=== PATIENT | female | born 1950 | race Caucasian/White ===

== ENCOUNTER → 2017-11-09 11:10 | Outpatient (CLI) | payer MEDICARE, OTHER, SELFPAY ==
[2017-11-09 12:12] LABS: Absolute Neutrophil Count 2.4 X10^3/uL (2.0-7.7); Basophil# 0.03 X10^3/uL; Basophil% 0.7 % (0-1); Eosinophils% 4.5 % (0-5); Hematocrit 41.4 % (37-47); Lymphocyte % 31.3 % (19-41); Mean Corp Hgb Conc 33.8 g/gl (32-36); Mean Corpuscular Hgb 32.5 pg (27.0-32.0); Mean Corpuscular Volume 96.1 fL (81-99); Mean Platelet Vol. 9.6 fl (6.2-12.0); Monocyte# 0.43 X10^3/uL; Monocyte% 9.6 % (0-10); Neutrophil # 2.41 X10^3/uL (2.7-7.7); Neutrophil % 53.9 % (47-70); Platelet Count 248 K/mm3 (150-450); RBC Distribution Width CV 12.8 % (11.6-14.6); RBC Distribution Width SD 43.6 fl (35.1-43.9); Red Blood Count 4.31 M/mm3 (4.2-5.4); White Blood Count 4.5 K/mm3 (4.4-11.0)
[2017-11-09 12:20] LABS: POSITIVE COUNT NO; POSITIVE DIFFERENTIAL NO; POSITIVE MORPHOLOGY NO
[2017-11-09 12:46] LABS: ALB/GLOB Ratio 1.1 RATIO (0.9-2.4); AST(SGOT) 20 U/L (15-37); Alanine Aminotransfer ALT/SGPT 35 U/L (13-56); Albumin, Serum 3.7 g/dL (3.2-5.0); Alkaline Phosphatase 61 U/L (45-117); Anion Gap 5 (5-15); BUN 14 mg/dL (7-18); BUN/Creat Ratio 20.4 RATIO (10-20); Calcium,Total 8.8 mg/dL (8.5-10.1); Chloride 106 mmol/L (98-107); Creatinine, Serum 0.69 mg/dL (0.55-1.02); EST Glomerular Filtration Rate 90 mL/min (>60); Est Glom Filt Rate - Afr Amer 109 mL/min (>60); Globulin 3.4 g/dL (2.2-4.2); Glucose 84 mg/dL (74-106); Potassium 4.2 mmol/L (3.5-5.1); Protein, Total 7.1 g/dL (6.4-8.2); Sodium Level 141 mmol/L (136-145)
== END ==
PROVIDERS: Family Provider Internal Medicine; PCP Internal Medicine; Visit Provider Internal Medicine Rheumatology
DX: M05.79 Rheumatoid arthritis with rheumatoid factor of multiple sites without organ or systems involvement (principal); Z79.899 Other long term (current) drug therapy
CPT/HCPCS: 36415; 80053; 85025

== ENCOUNTER → 2018-01-12 11:35 | Outpatient (CLI) | payer MEDICARE, OTHER, SELFPAY ==
[2018-01-14 09:34] LABS: HPV Reflexed? NOT INDICATED
== END ==
PROVIDERS: Family Provider Internal Medicine; PCP Internal Medicine; Visit Provider Obstetrics & Gynecology
DX: Z12.4 Encounter for screening for malignant neoplasm of cervix (principal); Z12.72 Encounter for screening for malignant neoplasm of vagina
CPT/HCPCS: 88175; G0145

== ENCOUNTER → 2018-01-25 11:16 | Outpatient (CLI) | payer MEDICARE, OTHER, SELFPAY ==
--- NOTE | 2018-01-25 11:16 | DT_ITS ---
This patient was seen during an EMR downtime January 18, 2018 - January 25, 2018. This patient may have a combination of paper and electronic documentation or all paper documentation. All documentation is viewable within the e-chart portion of [facility] for each patient visit.
[2018-01-25 14:03] LABS: Absolute Lymphocyte Count 1.32 X10^3/ul (0.83-4.51); Absolute Neutrophil Count 2.6 X10^3/uL (2.0-7.7); Basophil# 0.01 X10^3/uL; Basophil% 0.2 % (0-1); Eosinophil# 0.14 X10^3/uL; Eosinophils% 3.2 % (0-5); Hematocrit 39.8 % (37-47); Hemoglobin 13.2 g/dl (12.0-15.0); Lymphocyte # 1.32 X10^3/ul (4.0); Lymphocyte % 30.1 % (19-41); Mean Corp Hgb Conc 33.2 g/gl (32-36); Mean Corpuscular Hgb 31.9 pg (27.0-32.0); Mean Corpuscular Volume 96.1 fL (81-99); Mean Platelet Vol. 9.8 fl (6.2-12.0); Monocyte# 0.35 X10^3/uL; Neutrophil # 2.56 X10^3/uL (2.7-7.7); Neutrophil % 58.5 % (47-70); Platelet Count 248 K/mm3 (150-450); RBC Distribution Width CV 13.3 % (11.6-14.6); RBC Distribution Width SD 45.4 fl (35.1-43.9); Red Blood Count 4.14 M/mm3 (4.2-5.4); White Blood Count 4.4 K/mm3 (4.4-11.0)
[2018-01-25 14:05] LABS: POSITIVE COUNT NO; POSITIVE DIFFERENTIAL NO; POSITIVE MORPHOLOGY NO
[2018-01-25 14:15] LABS: ALB/GLOB Ratio 1.2 RATIO (0.9-2.4); AST(SGOT) 25 U/L (15-37); Alanine Aminotransfer ALT/SGPT 40 U/L (13-56); Albumin, Serum 3.7 g/dL (3.2-5.0); Alkaline Phosphatase 59 U/L (45-117); Anion Gap 8 (5-15); BUN 13 mg/dL (7-18); BUN/Creat Ratio 16.3 RATIO (10-20); Calcium,Total 8.9 mg/dL (8.5-10.1); Chloride 105 mmol/L (98-107); EST Glomerular Filtration Rate 76 mL/min (>60); Est Glom Filt Rate - Afr Amer 91 mL/min (>60); Globulin 3.2 g/dL (2.2-4.2); Glucose 84 mg/dL (74-106); Potassium 4.1 mmol/L (3.5-5.1); Protein, Total 6.9 g/dL (6.4-8.2); Sodium Level 141 mmol/L (136-145)
== END ==
PROVIDERS: Family Provider Internal Medicine; PCP Internal Medicine; Visit Provider Internal Medicine Rheumatology
DX: M05.79 Rheumatoid arthritis with rheumatoid factor of multiple sites without organ or systems involvement (principal); Z79.899 Other long term (current) drug therapy; K21.9 Gastro-esophageal reflux disease without esophagitis; G50.1 Atypical facial pain; G47.33 Obstructive sleep apnea (adult) (pediatric); Z85.3 Personal history of malignant neoplasm of breast; Z86.61 Personal history of infections of the central nervous system
CPT/HCPCS: 36415; 80053; 85025

== ENCOUNTER → 2018-04-20 10:56 | Outpatient (CLI) | payer MEDICARE, OTHER, SELFPAY ==
[2018-04-20 12:29] LABS: Basophil# 0.03 X10^3/uL; Basophil% 0.6 % (0-1); Eosinophil# 0.14 X10^3/uL; Eosinophils% 2.9 % (0-5); Hematocrit 39.3 % (37-47); Hemoglobin 13.1 g/dl (12.0-15.0); Lymphocyte % 27.3 % (19-41); Mean Corp Hgb Conc 33.3 g/gl (32-36); Mean Corpuscular Hgb 32.3 pg (27.0-32.0); Mean Corpuscular Volume 96.8 fL (81-99); Mean Platelet Vol. 9.8 fl (6.2-12.0); Monocyte# 0.35 X10^3/uL; Monocyte% 7.3 % (0-10); Neutrophil # 2.95 X10^3/uL (2.7-7.7); Neutrophil % 61.9 % (47-70); Platelet Count 244 K/mm3 (150-450); RBC Distribution Width CV 13.1 % (11.6-14.6); RBC Distribution Width SD 45.2 fl (35.1-43.9); Red Blood Count 4.06 M/mm3 (4.2-5.4); White Blood Count 4.8 K/mm3 (4.4-11.0)
[2018-04-20 12:38] LABS: ALB/GLOB Ratio 1.2 RATIO (0.9-2.4); AST(SGOT) 24 U/L (15-37); Alanine Aminotransfer ALT/SGPT 35 U/L (13-56); Albumin, Serum 3.7 g/dL (3.2-5.0); Alkaline Phosphatase 69 U/L (45-117); Anion Gap 6 (5-15); BUN 13 mg/dL (7-18); BUN/Creat Ratio 16.8 RATIO (10-20); Calcium,Total 8.9 mg/dL (8.5-10.1); Chloride 107 mmol/L (98-107); Creatinine, Serum 0.77 mg/dL (0.55-1.02); EST Glomerular Filtration Rate 79 mL/min (>60); Est Glom Filt Rate - Afr Amer 95 mL/min (>60); Globulin 3.2 g/dL (2.2-4.2); Glucose 96 mg/dL (74-106); Potassium 3.9 mmol/L (3.5-5.1); Protein, Total 6.9 g/dL (6.4-8.2); Sodium Level 141 mmol/L (136-145)
[2018-04-20 12:44] LABS: POSITIVE COUNT NO; POSITIVE DIFFERENTIAL NO; POSITIVE MORPHOLOGY NO
== END ==
PROVIDERS: Family Provider Internal Medicine; PCP Internal Medicine; Visit Provider Internal Medicine Rheumatology
DX: M05.79 Rheumatoid arthritis with rheumatoid factor of multiple sites without organ or systems involvement (principal); K21.9 Gastro-esophageal reflux disease without esophagitis; G50.1 Atypical facial pain; G47.33 Obstructive sleep apnea (adult) (pediatric); Z85.3 Personal history of malignant neoplasm of breast; Z86.61 Personal history of infections of the central nervous system; Z79.899 Other long term (current) drug therapy
CPT/HCPCS: 36415; 80053; 85025

== ENCOUNTER 2018-05-04 18:52 | Emergency (ER) | payer MEDICARE, OTHER, SELFPAY ==
[2018-05-04 18:53] VITALS: BP 117/76; PULSE 64; RESP 18; TEMP 36.6; O2SAT 98; BMI 29.2
--- NOTE | 2018-05-04 18:56 | EKG12_ITS ---
Test Reason : SYNCOPE Blood Pressure : / mmHG Vent. Rate : 068 BPM Atrial Rate : 068 BPM P-R Int : 172 ms QRS Dur : 080 ms QT Int : 384 ms P-R-T Axes : 044 -07 014 degrees QTc Int : 408 ms Normal sinus rhythm Normal ECG Confirmed by LONA YOUNG, JORDANA ([id number]), proposal editor RICCO RADFORD ([id number] on 05/06/2018 1:12:19 PM Referred By: DEEPTI Confirmed By:JORDANA ZAMORANO MD
[2018-05-04 20:07] VITALS: BP 130/81; PULSE 64; RESP 16; TEMP 36.6; O2SAT 95
--- NOTE | 2018-05-04 20:35 | RAD_ITS ---
STUDY: X-RAY CHEST REASON FOR EXAM: Female, 68 years old. Chest pain. TECHNIQUE: PA and lateral views of the chest. COMPARISON: January 24, 2014 FINDINGS: There is no new focal consolidation. There is a stable nodule projecting over the left lower lung associated with surgical clips. Normal size heart. Normal mediastinum and carole. Normal visualized pulmonary arteries. There is atherosclerotic calcification of the aortic arch. There are diffuse degenerative changes of the visualized thoracic spine. Normal visualized ribs, clavicles, and shoulders. There is no demonstrated abnormality of the visualized soft tissue structures of the upper abdomen. RAD/Chest PA and Lateral IMPRESSION: No acute cardiopulmonary process. Electronically Signed: Madhuri Ramos MD at 21:40 EDT Tel , Service support ,
[2018-05-04 20:48] LABS: Anion Gap 9 (5-15); BUN 24 mg/dL (7-18); BUN/Creat Ratio 18.6 RATIO (10-20); Chloride 102 mmol/L (98-107); Creatinine, Serum 1.29 mg/dL (0.55-1.02); EST Glomerular Filtration Rate 43 mL/min (>60); Est Glom Filt Rate - Afr Amer 53 mL/min (>60); Estimated Creatinine Clearance 35.04 ml/min; Glucose 96 mg/dL (74-106); Potassium 4.6 mmol/L (3.5-5.1); Sodium Level 137 mmol/L (136-145)
[2018-05-04 20:50] LABS: Absolute Lymphocyte Count 1.11 X10^3/ul (0.83-4.51); Absolute Neutrophil Count 8.9 X10^3/uL (2.0-7.7); Basophil# 0.03 X10^3/uL; Basophil% 0.3 % (0-1); Eosinophil# 0.04 X10^3/uL; Eosinophils% 0.4 % (0-5); Hematocrit 39.5 % (37-47); Hemoglobin 13.4 g/dl (12.0-15.0); Lymphocyte # 1.11 X10^3/ul (4.0); Lymphocyte % 10.2 % (19-41); Mean Corp Hgb Conc 33.9 g/gl (32-36); Mean Corpuscular Hgb 32.4 pg (27.0-32.0); Mean Corpuscular Volume 95.4 fL (81-99); Mean Platelet Vol. 9.7 fl (6.2-12.0); Monocyte# 0.73 X10^3/uL; Monocyte% 6.7 % (0-10); Neutrophil % 82.2 % (47-70); POSITIVE COUNT NO; POSITIVE DIFFERENTIAL NO; POSITIVE MORPHOLOGY NO; Platelet Count 232 K/mm3 (150-450); RBC Distribution Width CV 12.8 % (11.6-14.6); RBC Distribution Width SD 43.5 fl (35.1-43.9); Red Blood Count 4.14 M/mm3 (4.2-5.4); White Blood Count 10.8 K/mm3 (4.4-11.0)
--- NOTE | 2018-05-04 21:48 | HP.PCM_ITS ---
History of Present Illness The patient is a 68 year old F [] Past Medical History Past Medical History (Chronic Problems): Chronic Problems Hyperlipidemia (Chronic) GERD (gastroesophageal reflux disease) (Chronic) Allergic rhinitis (Chronic) Cognitive impairment (Chronic) History of breast cancer (Chronic) Polyarthropathy (Chronic) Trigeminal neuralgia (Chronic) Allergies adhesive Allergy (Verified 05/04/18 18:56) Rash topiramate [From Topamax] Allergy (Verified 05/04/18 18:56) Other carbamazepine Adverse Reaction (Verified 05/04/18 18:56) Other codeine Adverse Reaction (Verified 05/04/18 18:56) Other lansoprazole [From Prevacid] Adverse Reaction (Verified 05/04/18 18:56) Diarrhea SODIUM PENTATHOL Allergy (Uncoded 05/04/18 18:56) Other Home Medications: Ambulatory Orders Medication Instructions Recorded Calcium Citrate/Vitamin D3 1 each PO DAILY 01/24/14 [Calcium Citrate-Vit D3 Caplet] Cholecalciferol (Vitamin D3) 2,000 unit PO DAILY 01/24/14 [Vitamin D3] Cyanocobalamin (Vitamin B-12) 1,000 mcg PO DAILY 01/24/14 [Vitamin B-12] L. Acidophilus/Bifid. Animalis 1 each PO BID 01/24/14 [Probiotic 5 Billion Cell Cap] Multivitamins,Therapeutic 1 tablet PO DAILY 01/24/14 [Multivitamin] Carrier-3 Fatty Acids/Fish Oil 1 each PO BID 01/24/14 [Carrier 3 1,000 mg Softgel] Pyridoxine HCl [Vitamin B-6] 100 mg PO DAILY 01/24/14 Donepezil HCl [Aricept] 5 mg PO DAILY 04/06/17 Pantoprazole Sodium [Protonix] 40 mg PO BID 04/06/17 Vitamin B Complex 1 each PO DAILY 05/03/17 Epinephrine [Epi Pen] 0.3 mg IM PRN PRN 05/05/17 Fluticasone Furoate [Flonase 50 mcg NS PRN PRN 05/05/17 Sensimist] Ibuprofen 200 mg PO PRN PRN 05/05/17 Hydrocodone/Acetaminophen [[place] 1 each PO Q6H PRN PRN #15 tablet 05/11/17 10-325 Tablet] Prednisone [Deltasone] 20 mg PO DAILY #30 tablet 05/11/17 Ascorbic Acid [Vitamin C] 1,000 mg PO DAILY 05/23/17 Surgical History: no surgical history Smoking Status: Never smoker - *Family History Maternal History Items: No pertinent history - Physical Exam Vital Signs Temp Pulse Resp BP Pulse Ox 98 F 64 16 130/81 H 95 05/04/18 20:07 05/04/18 20:07 05/04/18 20:07 05/04/18 20:07 05/04/18 20:07 Oxygen Delivery Method Room Air Weight: 77.111 kg Body Mass Index (BMI) 29.2 Laboratory Tests Past 24 Hrs 05/04/18 05/04/18 20:21 20:21 WBC 10.8 RBC 4.14 L Hgb 13.4 Hct 39.5 MCV 95.4 MCH 32.4 H MCHC 33.9 RDW 12.8 RDW Differential 43.5 Plt Count 232 MPV 9.7 Immature Gran % (Auto) 0.200 Neut % (Auto) 82.2 H Lymph % (Auto) 10.2 L [place] % (Auto) 6.7 Eos % (Auto) 0.4 Baso % (Auto) 0.3 Absolute Neuts (auto) 8.9 H Absolute Lymphs (auto) 1.11 Total Counted Not Reportable Sodium 137 Potassium 4.6 Chloride 102 Carbon Dioxide 26.0 Anion Gap 9 BUN 24 H Creatinine 1.29 H Estim Creat Clear Calc 35.04 Est GFR (MDRD) Af Amer 53 L Est GFR (MDRD) Non-Af 43 L BUN/Creatinine Ratio 18.6 Glucose 96 Calcium 10.0 Troponin I < 0.015 Assessment/Plan All Active Problems Hypokalemia (Acute) Herpes zoster (Acute) Sigmoid diverticulitis (Acute)
--- NOTE | 2018-05-04 21:50 | ED.DCSUM_ITS ---
- ER Visit Summary Date of Service: 05/04/18 Chief Complaint: Presyncope History of Present Illness: The patient is a 68 F presenting for evaluation secondary to a presyncopal episode. Patient has a underlying history of rheumatoid arthritis mild dementia. Patient apparently has had episodes in the past where she has had significant cramping in her hands and this was alleviated by taking course of steroids. However, the patient today came in from the garden and had an episode of cramping in the hands but this was also associated with feelings that she was going to pass out, diaphoresis, and paleness. Patient's states that this lasted for quite some time, and the patient was actually amnestic to the event. Patient had some diarrhea following the event but during the event was not complaining of any abdominal pain nausea vomiting chest pain shortness of breath. She has no cardiovascular history in the past. Review of systems otherwise negative. Physical Examination: Vital signs within normal limits. Well-nourished female no acute distress. Head normocephalic atraumatic, PERRLA EOMI no evidence of nystagmus. Moist mucous membranes. Neck supple. Heart regular rate and rhythm no murmurs. Lungs sounds clear to auscultation bilaterally. Abdomen soft nontender nondistended. Back nontender. Extremities nontender nonedematous. Skin normal color no rash. Patient alert and oriented ?4 no lateralizing neurological deficits. Test Results: Chest x-ray per radiology is negative. EKG shows sinus rate [address] segments normal T waves no evidence of acute changes from prior EKG. CBC unremarkable, chemistry unremarkable, troponin negative Emergency Department Course and Treatment: Patient presented for evaluation secondary to what sounded like a syncopal episode. She was worked up and was found to be negative. Given the fact that the patient was so diaphoretic and pale during the event I am somewhat concerned for the possibility that the patient had a malignant arrhythmia. I recommended admission to the patient and her , and they stated that they wish to sign out AGAINST MEDICAL ADVICE for financial reasons. Contacted the patient's primary care doctor who agrees to see the patient in follow-up. Family and patient understand to return immediately for any sort of return or worsening symptoms. Disposition: Discharge AGAINST MEDICAL ADVICE Impression: 1. Syncope This note was generated with [employer] software. It may contain incorrect words, spelling, and punctuation that were not noted in review of the chart prior to signing ED Disposition - Plan for ED Patient: Disposition: Against Medical Advice Chief Complaint: Syncope Diagnosis: Syncope Instructions: ED Fainting Unkn Cause Referrals: Mitzi Thompson MD [Primary Care Provider] - As soon as possible
[2018-05-04 22:14] VITALS: BP 133/67; PULSE 61; RESP 16; O2SAT 96
== END 2018-05-04 22:21 | disposition left against medical advice (07) ==
PROVIDERS: Emergency Provider Emergency Medicine; Family Provider Internal Medicine; PCP Internal Medicine
DX: R55 Syncope and collapse (principal); F03.90 Unspecified dementia, unspecified severity, without behavioral disturbance, psychotic disturbance, mood disturbance, and anxiety; M06.9 Rheumatoid arthritis, unspecified
CPT/HCPCS: 71046; 80048; 84484; 85025; 93005; 99284; A4216

== ENCOUNTER 2018-07-19 10:29 | Outpatient (RCR) | payer MEDICARE, OTHER, SELFPAY ==
[2018-07-19 12:12] LABS: Absolute Lymphocyte Count 1.42 X10^3/ul (0.83-4.51); Absolute Neutrophil Count 2.4 X10^3/uL (2.0-7.7); Basophil# 0.02 X10^3/uL; Basophil% 0.5 % (0-1); Eosinophil# 0.22 X10^3/uL; Hematocrit 39.1 % (37-47); Hemoglobin 13.2 g/dl (12.0-15.0); Lymphocyte # 1.42 X10^3/ul (4.0); Lymphocyte % 32.6 % (19-41); Mean Corp Hgb Conc 33.8 g/gl (32-36); Mean Corpuscular Hgb 32.6 pg (27.0-32.0); Mean Corpuscular Volume 96.5 fL (81-99); Mean Platelet Vol. 9.7 fl (6.2-12.0); Monocyte# 0.31 X10^3/uL; Monocyte% 7.1 % (0-10); Neutrophil # 2.39 X10^3/uL (2.7-7.7); Neutrophil % 54.8 % (47-70); Platelet Count 261 K/mm3 (150-450); RBC Distribution Width CV 13.3 % (11.6-14.6); RBC Distribution Width SD 45.9 fl (35.1-43.9); Red Blood Count 4.05 M/mm3 (4.2-5.4); White Blood Count 4.4 K/mm3 (4.4-11.0)
[2018-07-19 12:20] LABS: POSITIVE COUNT NO; POSITIVE DIFFERENTIAL NO; POSITIVE MORPHOLOGY NO
[2018-07-19 12:31] LABS: ALB/GLOB Ratio 1.1 RATIO (0.9-2.4); AST(SGOT) 25 U/L (15-37); Alanine Aminotransfer ALT/SGPT 36 U/L (13-56); Albumin, Serum 3.8 g/dL (3.2-5.0); Alkaline Phosphatase 60 U/L (45-117); Anion Gap 9 (5-15); BUN 18 mg/dL (7-18); BUN/Creat Ratio 22.9 RATIO (10-20); Chloride 109 mmol/L (98-107); Creatinine, Serum 0.78 mg/dL (0.55-1.02); EST Glomerular Filtration Rate 77 mL/min (>60); Est Glom Filt Rate - Afr Amer 93 mL/min (>60); Globulin 3.4 g/dL (2.2-4.2); Glucose 98 mg/dL (74-106); Potassium 4.1 mmol/L (3.5-5.1); Protein, Total 7.2 g/dL (6.4-8.2); Sodium Level 143 mmol/L (136-145)
--- OUTSIDE RECORDS SUMMARY | 2018-09-11 15:49 | XMS RPT_ITS ---
:1950 Author Organization OHIP Care Team Providers Name Role Phone NICOLASA TRAORE Referring Unavailable TALAMPAS, NÉSTOR D Attending Unavailable TRAORE, NICOLASA Admitting Unavailable TRAORE, NICOLASA Attending Unavailable TRAORE, NICOLASA Referring Unavailable TRAORE, NICOLASA Referring Unavailable TRAORE, NICOLASA Attending Unavailable TRAORE, NICOLASA Referring Unavailable SHREYAS GALVAN Attending Unavailable TALAMPAS, NÉSTOR Ramírez Attending Unavailable TALAMPAS, NÉSTOR D Referring Unavailable TALAMPAS, NÉSTOR D Attending Unavailable TALAMPAS, NÉSTOR D Referring Unavailable TALAMPAS, NÉSTOR D Referring Unavailable TALAMPAS, NÉSTOR D Attending Unavailable Lizz Shahid Attending Unavailable Lizz Shahid Referring Unavailable Talampas, Néstor Primary Care Unavailable Adia Campbell Attending Unavailable Adia Campbell Referring Unavailable Talampas, Néstor Primary Care Unavailable Lizz Shahid Attending Unavailable Lizz Shahid Referring Unavailable Talampas, Néstor Primary Care Unavailable Lizz Shahid Attending Unavailable Lizz Shahid Referring Unavailable Néstor Thompson Primary Care Unavailable Pari Thompsona Primary Care Unavailable Jimmie Ornelas Attending Unavailable Lizz Shahid Attending Unavailable Lizz Shahid Referring Unavailable Néstor Thompson Primary Care Unavailable PROBLEMS PROBLEMS DATE TYPE CONDITION / CODE ATTENDING STATUS SOURCE 07/26/2018 Active Other correction NA Active [facility] (current) drug [place] therapy / Repository Z79.899(ICD-10) 02/11/2018 Unknown M05.79 - Lizz Shahid Active [place] [facility] with [facility] rheumatoid factor Repository of multiple sites without organ or systems involvement / M05.79(ICD-10) 01/12/2018 Unknown Z12.4 - Encounter Adia Campbell Active [place] for screening for [facility] malignant neoplasm Hospital of cervix / Repository Z12.4(ICD-10) 01/12/2018 Unknown Z12.72 - Encounter Adia Campbell Active [place] [facility] screening for [facility] malignant neoplasm Hospital of vagina / Repository Z12.72(ICD-10) 06/17/2017 Active Personal history NA Active [facility] of malignant [place] neoplasm of breast Repository / Z85.3(ICD-10) 06/17/2017 Active 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 / Repository N60.11(ICD-10) 06/17/2017 Active Diffuse cystic NA Active [facility] mastopathy of left [place] breast / Repository N60.12(ICD-10) 11/09/2017 Unknown Z79.899 - Other Lizz Shahid Active [place] [facility] (current[facility] drug [facility] therapy / Repository Z79.899(ICD-10) 08/25/2017 Active Unknown / NA Active [facility] UNK(Unknown) [place] Repository 08/25/2017 Active Other abnormal and TRAORE, NICOLASA Active [facility] inconclusive [place] findings on Repository diagnostic imaging of breast / R92.8(ICD-10) PROCEDURES PROCEDURES No Procedure Records FoundRESULTS RESULTS BASIC METABOLIC PANL Collected: 07/26/2018 Status: F Source: [place] 12:01 PM [facility] REPOSITORY TYPE CODE TESTS RESULT OUT OF REFERENCE UNITS RANGE LAB GLU 74-99 mg/dL Glucose 98 Result Comment: The [place] Diabetes Association (ADA) provides guidance for cutoff values for fasting glucose and random glucose. The ADA defines fasting as no caloric intake for at least 8 hours. Fas ting plasma glucose results between 100 to 125 mg/dL indicate increased risk for diabetes (prediabetes). Fasting plasma glucose results greater than or equal to 126 mg/dL meet the criteria for diagnosis of diabetes. In the absence of unequivocal hyperglycemia, results should be confirmed by repeat testing. In a patient with classic symptoms of hyperglycemia or hyperglycemic crisis, random plasma glucose results greater than or equal to 200 mg/dL meet the criteria for diagnosis of diabetes. Reference: Standards of Medical Care in Diabetes 2016, [place] [employer] Association. Diabetes Care. 2016.39(Suppl 1). LAB BUN 7-21 mg/dL BUN 18 LAB CRET 0.58-0.96 mg/dL Creatinine 0.73 LAB NA 136-144 mmol/L Sodium 140 LAB K 3.7-5.1 mmol/L Potassium 4.5 LAB CL 97-105 mmol/L Chloride 104 LAB CO2 22-30 mmol/L CO2 25 LAB AGAP 9-18 mmol/L Anion Gap 11 LAB CA 8.5-10.2 mg/dL Calcium, Total 9.5 LAB GFRAA eGFR- Amer. >60 LAB GFRNAA . eGFR-All Other Races >60 Result Comment: eGFR (Estimated GFR) Units of measure: mL/min/1.73 meters squared eGFR is derived from the reexpressed MDRD Study equation using the following parameters: serum creatinine, age, gender and race. The creatinine assay has been calibrated to be traceable to IDMS. An eGFR <60 mL/min/1.73m2 for >3 months is consistent with chronic kidney disease. Refer to KDOQI guidelines for clinical interpretation. In patients with unstable renal function, e.g. those with acute kidney injury, the eGFR may not accurately reflect actual GFR. Performed By: #### BMP, LIPB #### [facility] [address] [place] [address] LIPID PANEL, BASIC Collected: 07/26/2018 Status: F Source: [place] 12:01 PM [facility] REPOSITORY TYPE CODE TESTS RESULT OUT OF REFERENCE UNITS RANGE LAB CHOL <200 mg/dL Cholesterol High 240 Result Comment: <200 mg/dL, Desirable 200-239 mg/dL, Borderline high >239 mg/dL, High LAB TRIGLY <150 mg/dL Triglyceride 74 Result Comment: <150 mg/dL, Normal 150-199 mg/dL, Borderline high 200-499 mg/dL, High >499 mg/dL, Very high LAB HDL >39 mg/dL HDL-Cholesterol 64 Result Comment: 40-59 mg/dL, Acceptable >59 mg/dL, High: Negative risk factor for coronary heart disease <40 mg/dL, Low: Positive risk factor for coronary heart disease LAB LDL <100 mg/dL LDL-Cholesterol High 161 Result Comment: <100 mg/dL, Optimal 100-129 mg/dL, Near optimal/above optimal 130-159 mg/dL, Borderline high 160-189 mg/dL, High >189 mg/dL, Very high Secondary prevention optimal LDL Cholesterol levels are recommended to be < 70 mg/dL LAB NONHDL <130 mg/dL Non HDL High Cholesterol 176 Result Comment: <130 mg/dL, Optimal 130-159 mg/dL, Near optimal/above optimal 160-189 mg/dL, Borderline high 190-219 mg/dL, High >219 mg/dL, Very high Secondary prevention optimal non HDL Cholesterol levels are recommended to be < 100 mg/dL LAB FT hrs Fasting Time 12 LAB VLDL <30 mg/dL VLDL Cholesterol 15 LAB TCHDL <5.10 TC:HDL Ratio 3.75 LAB LDLHDL <2.54 LDL:HDL Ratio 2.52 Result Comment: Reference: 1. National Cholesterol Education Program ATP III Guideline At-A-Glance Quick Desk Reference: National Heart, Lung, and Blood [place]. National Institutes of Health. 2001: NIH Publication No. 01-3305. 2. An International Atherosclerosis Society position paper: global recommendations for the management of dyslipidemia: executive summary, Atherosclerosis. 2014: 232(2):410-413. Performed By: #### BMP, LIPB #### [facility] [address] [id number] CBC W/DIFF, AUTOMATED Collected: 07/19/2018 Status: F Source: [place] 10:37 AM [facility] [place] TYPE CODE TESTS RESULT OUT OF RANGE REFERENCE UNITS LAB L100.1000 4.4-11.0 K/mm3 Normal WBC 4.4 LAB L100.1200 4.2-5.4 M/mm3 Low RBC 4.05 LAB L100.1300 12.0-15.0 g/dl Normal HGB 13.2 LAB L100.1400 37-47 % Normal HCT 39.1 LAB L100.1500 81-99 fL Normal MCV 96.5 LAB L100.1600 27.0-32.0 pg High MCH 32.6 LAB L100.1700 32-36 g/gl Normal MCHC 33.8 LAB L100.1810 11.6-14.6 % Normal RDW CV 13.3 LAB L100.1820 35.1-43.9 fl High RDW SD 45.9 LAB L100.1900 150-450 K/mm3 Normal PLT 261 LAB L100.2000 6.2-12.0 fl Normal MPV 9.7 LAB L100.2100 47-70 % Normal NEUT% 54.8 LAB L100.2200 19-41 % Normal LY% 32.6 LAB L100.2300 0-10 % Normal MONO% 7.1 LAB L100.2400 0-5 % Normal EO% 5.0 LAB L100.2500 0-1 % Normal BASO% 0.5 LAB L100.2550 0.0-0.9 % Normal IM GRAN % 0.000 Result Comment: IG% - Immature Granulocytes (promyelocytes, myelocytes and metamyelocytes) > 1% indicates that a LEFT SHIFT is Present. LAB L100.2620 2.0-7.7 X10 3/uL Normal Absolute Neut 2.4 LAB L100.2720 0.83-4.51 X10 3/ul Normal Absolute Lymph 1.42 Performed By: #### L100.0100 #### [facility] [address] [place] [address]. [place], [address] COMPREHENSIVE METABOLIC Collected: 07/19/2018 Status: F Source: [facility] 10:37 AM [facility] [place] TYPE CODE TESTS RESULT OUT OF RANGE REFERENCE UNITS LAB L501.0100 74-106 mg/dL Normal GLU 98 Result Comment: Please note revised GLUCOSE reference range effective 2017. LAB L501.1000 7-18 mg/dL Normal BUN 18 LAB L501.1100 0.55-1.02 mg/dL Normal CREAT,SERUM 0.78 Result Comment: The validity of the calculated GFR AND GFRAA in patients over 70 years has not been determined. Clinical correlation is essential. LAB L501.1110 >60 mL/min Normal EST GFR 77 Result Comment: Non- GFR Calc LAB L501.1115 >60 mL/min Normal EST GFR - AA 93 Result Comment: GFR Calc LAB L501.1300 10-20 RATIO High BUN/CRE 22.9 LAB L501.1500 6.4-8.2 g/dL T Normal PROT 7.2 LAB L501.1800 3.2-5.0 g/dL Normal ALB 3.8 LAB L501.1950 2.2-4.2 g/dL Normal GLOB 3.4 LAB L501.2000 0.9-2.4 RATIO Normal A/G 1.1 LAB L501.2200 8.5-10.1 mg/dL CA Normal 9.0 LAB L501.4100 15-37 U/L Normal AST 25 LAB L501.4305 45-117 U/L Normal ALK P 60 LAB L501.4405 13-56 U/L Normal ALT 36 LAB L501.4600 0.20-1.00 mg/dL T Normal BILI 0.50 LAB L501.5300 136-145 mmol/L NA Normal 143 LAB L501.5600 3.5-5.1 mmol/L K Normal 4.1 LAB L501.5900 98-107 mmol/L High CL 109 LAB L501.6100 21.0-32.0 mmol/L Normal CO2 25.0 LAB L501.6200 5-15 Normal GAP 9 Performed By: #### L500.4050 #### [facility] [address] [place] [address]. [place], [place], [id number] PROGRESS Observed: 05/07/2018 Status: COMPLETED Source: [place] 4:04 PM [facility] REPOSITORY O ID: [id number] Author: Néstor Thompson Service: (none) Author Type: Physician Type: Progress Notes Filed: 05/24/2018 12:01 AM Note Text: Patient presents with: ED Follow-up SUBJECTIVE: Richa Madden is a 68 year old year old lady here today for ER follow up appointment for review of medical conditions. Reviewed events that led up to going to ER for evaluation: 3 hours working outside prior to episode Sweating Hand cramping and severe pain in hands; felt like passing out; BP dropped to 70's. Improved BP by the time left and since went home. Leg cramping after that day--has resolved. Gets random foot cramps. 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; would resolve with treatment - [facility] - Esophagitis, unspecified - Hair loss - History of Helicobacter pylori infection - Malignant neoplasm of breast (female), unspecified site Breast cancer - Malignant neoplasm of central portion of female breast (HCC) 06/2007 left lumpectomy with axillary dissection, right lumpectomy for DCIS - Memory loss 02/25/2016 - Mitral valve disorders(424.0) - Obstructive sleep apnea - Other specified disease of pancreas 06/23 anesthesia - Sacroiliitis ([facility]) - Sinusitis - Viral meningitis - Viral meningitis Current Outpatient Prescriptions: donepezil (ARICEPT) 10 mg tablet TAKE ONE TABLET BY MOUTH DAILY WITH BREAKFAST DULoxetine (CYMBALTA) 60 mg capsule Take 1 capsule by mouth once daily. Cholecalciferol, Vitamin D3, (VITAMIN D-3) 2,000 unit cap Take by mouth once daily. calcium carbonate/vitamin D2 (CALCIUM 600 WITH VITAMIN D ORAL) Take by mouth once daily. fluticasone (FLONASE) 50 mcg/actuation nasal spray Use 1-2 Sprays in each nostril once daily. Rinse mouth after use. albuterol HFA (PROAIR HFA) 90 mcg/actuation inhaler Inhale 2 Puffs as instructed every 4 hours as needed. pantoprazole DR (PROTONIX) 40 mg tablet Take 1 tablet by mouth twice daily. Multivitamin capsule Take 1 capsule by mouth once daily. folic acid 1 mg tablet 1 mg twice daily. methotrexate 2.5 mg tablet 6 tablets once per week CPAP AutoPAP 5-15 cmH2O, suitable mask, humidity, filters. Lifetime supplies. Dx: G47.33 COMPOUNDED PRESCRIPTION Overnight pulse ox 6-8 weeks after CPAP set up per sleep study recommendationsDiagnoses: (G47.33, Z99.89) CRISTINA on CPAP; (G47.34) Nocturnal hypoxemia lactobac cmb #[id number] (PROBIOTIC AND ACIDOPHILUS) 300-250 million cell-mg cap Take 1 capsule by mouth twice daily. EPINEPHrine (EPIPEN) 0.3 mg/0.3 mL (1:1,000) auto-injector Inject 0.3 mg intramuscularly as needed. No current facility-administered medications for this visit. OBJECTIVE: BP 134/72 Pulse 64 Resp 20 Wt 85.3 kg (188 lb) BMI 31.77 kg/m? Patient is alert, oriented times 3, no apparent distress, affect is bright, reactive. Heart: Regular rate, rhythm, no murmurs, gallops, rubs. Lungs: Clear to auscultation, bilaterally, breathing non labored. Ext: No cyanosis, clubbing, or edema. Neuro: no gross focal deficits noted. ASSESSMENT AND PLAN: Encounter Diagnosis ICD-10-CM 1. Vasovagal near syncope R55 2. Postural dizziness with presyncope R42 R55 3. Cramping of hands R25.2 4. Tooth pain K08.89 5. Need for vaccination Z23 INFLUENZA SEASONAL HIGH DOSE AGE 65+ Above issues addressed with patient. Patient involved in shared decision making for management of medical issues. History and medications reviewed. Epic updated as needed Refills taken care of and meds adjusted as indicated after reviewed history, exam and labs. Health Maintenance reviewed. Updated record and/or ordered tests as recorded. Encouraged on efforts at healthy diet and regular exercise and adequate sleep. Reviewed records from ER. Discussed diagnosis and management. Need to stay hydrated discussed--whether to decrease risk of having orthostasis or decrease risk of vasovagal reaction. Prevention and treatment of muscle spasm or muscle cramping reviewed. Further evaluation and treatment as indicated. Noted recurrence of mouth pain with aching in tooth. Further evaluation and treatment as indicated. The majority of the visit was spent counseling and/or coordinating care for the patient. Xnbz-ff-[id number] time was at least 20 minutes. Néstor Thompson MD CNOV Observed: 05/07/2018 Status: COMPLETED Source: [place] 2:40 PM [facility] REPOSITORY Office Visit (INTMWS) RICHA MADDEN ([id number]) 1950 F Date Time Provider Department 05/07/18 2:40 PM NÉSTOR THOMPSON During your visit today, we recorded the following information about you: Pulse Respiration Blood pressure Weight 64/minute 20/minute 134/72 85.3 kg Néstor Thompson MD 05/24/2018 12:01 AM Signed Patient presents with: ED Follow-up SUBJECTIVE: Richa Madden is a 68 year old year old lady here today for ER follow up appointment for review of medical conditions. Reviewed events that led up to going to ER for evaluation: 3 hours working outside prior to episode Sweating Hand cramping and severe pain in hands; felt like passing out; BP dropped to 70's. Improved BP by the time left and since went home. Leg cramping after that day--has resolved. Gets random foot cramps. 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; would resolve with treatment - [facility]cydynia [facility] management at [facility] - Esophagitis, unspecified - Hair loss - History of Helicobacter pylori infection - Malignant neoplasm of breast (female), unspecified site Breast cancer - Malignant neoplasm of central portion of female breast (HCC) 06/2007 left lumpectomy with axillary dissection, right lumpectomy for DCIS - Memory loss 02/25/2016 - Mitral valve disorders(424.0) - Obstructive sleep apnea - Other specified disease of pancreas 06/23 anesthesia - Sacroiliitis ([facility]) - Sinusitis - Viral meningitis - Viral meningitis Current Outpatient Prescriptions: donepezil (ARICEPT) 10 mg tablet TAKE ONE TABLET BY MOUTH DAILY WITH BREAKFAST DULoxetine (CYMBALTA) 60 mg capsule Take 1 capsule by mouth once daily. Cholecalciferol, Vitamin D3, (VITAMIN D-3) 2,000 unit cap Take by mouth once daily. calcium carbonate/vitamin D2 (CALCIUM 600 WITH VITAMIN D ORAL) Take by mouth once daily. fluticasone (FLONASE) 50 mcg/actuation nasal spray Use 1-2 Sprays in each nostril once daily. Rinse mouth after use. albuterol HFA (PROAIR HFA) 90 mcg/actuation inhaler Inhale 2 Puffs as instructed every 4 hours as needed. pantoprazole DR (PROTONIX) 40 mg tablet Take 1 tablet by mouth twice daily. Multivitamin capsule Take 1 capsule by mouth once daily. folic acid 1 mg tablet 1 mg twice daily. methotrexate 2.5 mg tablet 6 tablets once per week CPAP AutoPAP 5-15 cmH2O, suitable mask, humidity, filters. Lifetime supplies. Dx: G47.33 COMPOUNDED PRESCRIPTION Overnight pulse ox 6-8 weeks after CPAP set up per sleep study recommendationsDiagnoses: (G47.33, Z99.89) CRISTINA on CPAP; (G47.34) Nocturnal hypoxemia lactobac cmb #[id number] (PROBIOTIC AND ACIDOPHILUS) 300-250 million cell-mg cap Take 1 capsule by mouth twice daily. EPINEPHrine (EPIPEN) 0.3 mg/0.3 mL (1:1,000) auto-injector Inject 0.3 mg intramuscularly as needed. No current facility-administered medications for this visit. OBJECTIVE: BP 134/72 Pulse 64 Resp 20 Wt 85.3 kg (188 lb) BMI 31.77 kg/m? Patient is alert, oriented times 3, no apparent distress, affect is bright, reactive. Heart: Regular rate, rhythm, no murmurs, gallops, rubs. Lungs: Clear to auscultation, bilaterally, breathing non labored. Ext: No cyanosis, clubbing, or edema. Neuro: no gross focal deficits noted. ASSESSMENT AND PLAN: Encounter Diagnosis ICD-10-CM 1. Vasovagal near syncope R55 2. Postural dizziness with presyncope R42 R55 3. Cramping of hands R25.2 4. Tooth pain K08.89 5. Need for vaccination Z23 INFLUENZA SEASONAL HIGH DOSE AGE 65+ Above issues addressed with patient. Patient involved in shared decision making for management of medical issues. History and medications reviewed. Epic updated as needed Refills taken care of and meds adjusted as indicated after reviewed history, exam and labs. Health Maintenance reviewed. Updated record and/or ordered tests as recorded. Encouraged on efforts at healthy diet and regular exercise and adequate sleep. Reviewed records from ER. Discussed diagnosis and management. Need to stay hydrated discussed--whether to decrease risk of having orthostasis or decrease risk of vasovagal reaction. Prevention and treatment of muscle spasm or muscle cramping reviewed. Further evaluation and treatment as indicated. Noted recurrence of mouth pain with aching in tooth. Further evaluation and treatment as indicated. The majority of the visit was spent counseling and/or coordinating care for the patient. Ssvm-xh-qhhp time was at least 20 minutes. MD Gabriela Hernandez LPN 05/07/2018 4:47 PM Signed Influenza Vaccine Documentation: ? Patient is identified by name and date of : Yes ? Patient is older than 6 months of age: Yes ? Patient denies a severe allergy to any vaccine component or to a previous dose of influenza vaccine: Yes FOR EGG ALLERGY CONCERNS, REFER TO PROVIDER. ? Denies allergy to gelatin, formaldehyde, thimerosol :Yes ? Patient is afebrile and not moderately or severely ill: Yes ? Does the patient have a history of Guillain ?Yuma Syndrome (a severe paralytic illness): No ? Denies bone marrow transplant prior 6 months or solid organ transplant prior 3 months: Yes ? Denies a history of fainting after a prior injection or medical procedure? Yes If patient has fainted in the past, the CDC recommends sitting or lying down for 15 minutes after the vaccination. ? VIS sheet provided: Yes ? See Immunization Form in EpicCare for details of immunizations administered today. If patient reports dizziness, vision changes or ringing in the ears post vaccination ? please have patient sit or lie down for 15 minutes. Referring Provider: NÉSTOR THOMPSON [[id number]] Allergies As of Date: 05/07/2018 Noted Allergy Reaction TEGRETOL (CARBAMAZEPINE) 03/02/2012 1 - Mental Status Change 8 - GI Upset 14 - Other: See Comments Comments: Decreased sodium, sore throat. (hyponatremia) BEES 03/31/2014 7 - Swelling CODEINE 07/12/2007 5 - Intolerance Comments: Horrible side effects causing pancreatitis ELAVIL (AMITRIPTYLINE) 09/09/2011 7 - Swelling 10 - Anaphylaxis PREVACID (LANSOPRAZOLE) 01/13/2012 8 - GI Upset Comments: severe sodium pentathol [Other] 09/19/2005 11 - Vomiting THIOPENTAL SODIUM 06/25/2007 11 - Vomiting ADHESIVE TAPE (ROSINS) 06/25/2007 2 - Rash steristrips/adhesive [Other] 06/24/2007 2 - Rash Date Reviewed: 05/07/2018 Reviewed by: Gabrieal Mcdonnell LPN - Fully Assessed Reason for Visit: ED Follow-up [821] Imm/Inj [58] Cmt: Flu Vaccine Reason For Visit History Recorded Primary Visit Diagnosis:Vasovagal near syncope [R55] Other Visit Diagnoses:Postural dizziness with presyncope [R42, R55] Cramping of hands [R25.2] Tooth pain [K08.89] Need for vaccination [Z23] Order(s):INFLUENZA SEASONAL HIGH DOSE AGE 65+ [[id number]] Order #: [id number] Prescriptions as of 05/07/2018 Sig: DONEPEZIL 10 MG TABLET TAKE ONE TABLET BY MOUTH BAHMAN* DULOXETINE 60 MG CAPSULE,PAULINA* Take 1 capsule by mouth once * CHOLECALCIFEROL (VITAMIN D3) * Take by mouth once daily. CALCIUM 600 WITH VITAMIN D OR* Take by mouth once daily. FLUTICASONE 50 MCG/ACTUATION * Use 1-2 Sprays in each nostri* ALBUTEROL SULFATE HFA 90 MCG/* Inhale 2 Puffs as instructed * PANTOPRAZOLE 40 MG TABLET,DEL* Take 1 tablet by mouth twice * MULTIVITAMIN CAPSULE Take 1 capsule by mouth once * FOLIC ACID 1 MG TABLET 1 mg twice daily. METHOTREXATE SODIUM 2.5 MG TA* 6 tablets once per week CPAP AutoPAP 5-15 cmH2O, suitable * COMPOUNDED PRESCRIPTION Overnight pulse ox 6-8 weeks * LACTOBACILLUS COMB NO.3-FOS-P* Take 1 capsule by mouth twice* EPINEPHRINE 0.3 MG/0.3 ML INJ* Inject 0.3 mg intramuscularly* Problem List As Of Date 05/07/2018 Noted Resolved INFECTIOUS ENTERITIS NOS [A09] INVALID FOR* MALIG NEOPLASM BREAST-CENTRAL [C50.119] INVALID FOR* MALIGN NEOPL BREAST NOS [C50.919] INVALID FOR* Abdominal pain, generalized [R10.84] INVALID FOR*08/07/2017 Acute pancreatitis [K85.90] INVALID FOR*08/07/2017 Drug induced neutropenia(288.03) [D70.2] INVALID FOR*08/20/2017 CA IN SITU BREAST [D05.90] INVALID FOR* PERS HX OF BREAST MALIGNANCY [Z85.3] INVALID FOR* Hyperlipidemia [E78.5] INVALID FOR* OVERWEIGHT [E66.9] INVALID FOR* Vitamin D Deficiency [E55.9] INVALID FOR* Mastitis [N61.0] INVALID FOR* GERD (Gastroesophageal Reflux Disease) [K21.9] INVALID FOR* Coccydynia [M53.3] 08/07/2017 Sacroiliitis [M46.1] White matter abnormality on MRI of brain [R90.8*INVALID FOR* More... Acute gastritis without mention of hemorrhage [*INVALID FOR* Esophagitis, unspecified [K20.9] INVALID FOR* Sleep apnea [G47.30] INVALID FOR*12/30/2015 More... UTI (lower urinary tract infection) [N39.0] INVALID FOR* More... LPRD (laryngopharyngeal reflux disease) [K21.9] INVALID FOR* Obstructive sleep apnea [G47.33] Memory loss [R41.3] INVALID FOR* Facial pain [R51] INVALID FOR* Bilateral fibrocystic breast changes [N60.11, N*INVALID FOR* Dense breasts [R92.2] INVALID FOR* Personal history of breast cancer [Z85.3] INVALID FOR* Examination of participant in clinical trial [Z*INVALID FOR* More... 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 Patient is identified by name and date of : Yes ? Patient is older than 6 months of age: Yes ? Patient denies a severe allergy to any vaccine component or to a previous dose of influenza vaccine: Yes FOR EGG ALLERGY CONCERNS, REFER TO PROVIDER. ? Denies allergy to gelatin, formaldehyde, thimerosol :Yes ? Patient is afebrile and not moderately or severely ill: Yes ? Does the patient have a history of Guillain ?Yuma Syndrome (a severe paralytic illness): No ? Denies bone marrow transplant prior 6 months or solid organ transplant prior 3 months: Yes ? Denies a history of fainting after a prior injection or medical procedure? Yes If patient has fainted in the past, the CDC recommends sitting or lying down for 15 minutes after the vaccination. ? VIS sheet provided: Yes ? See Immunization Form in [facility] for details of immunizations administered today. If patient reports dizziness, vision changes or ringing in the ears post vaccination ? please have patient sit or lie down for 15 minutes. Encounter Status:Closed by NÉSTOR THOMPSON MD on 05/24/18 12 LEAD ELECTROCARDIOGRAM Observed: 05/06/2018 Status: F Source: MEL 1:12 PM [facility] Cardiovascular Services [address] [place] [address] 12 Lead EKG 05/04/18 1905 MR#: [id number] Acct: [id number] Name: RICHA MADDEN Rep #: [id number] : 1950 68 From: Odin Aggarwal MD Attending Dr: Status: DEP ER Ordering Dr: Provider, Ed P. Date: 05/04/18 Location: ED Sex: F C Admitted: Test Reason : SYNCOPE Blood Pressure : / mmHG Vent. Rate : 068 BPM Atrial Rate : 068 BPM P-R Int : 172 ms QRS Dur : 080 ms QT Int : 384 ms P-R-T Axes : 044 -07 014 degrees QTc Int : 408 ms Normal sinus rhythm Normal ECG Confirmed by ODIN AGGARWAL MD ([id number]), make up editor RICCO RADFORD ([id number]) on 05/06/2018 1:12:19 PM Referred By: DEEPTI Confirmed By:ODIN AGGARWAL MD 05/06/18 1312 Date Odin Aggarwal MD CC: ED PHYSICIAN PROVIDER; Néstor Thompson MD; Jimmie Gonzalez EMERGENCY DEPARTMENT Observed: 05/05/2018 Status: F Source: MEL SUMMARY 2:35 AM [facility] Medical Records Department [address] [place] [address] Emergency Department Summary 05/04/18 2149 MR#: [id number] Acct: [id number] Name: RICHA MADDEN Rep #: [id number] : 1950 68 From: Jimmie Ornelas MD PCP: Néstor Thompson MD Status: DEP ER - ER Visit Summary Date of Service: 05/04/18 Chief Complaint: Presyncope History of Present Illness: The patient is a 68 F presenting for evaluation secondary to a presyncopal episode. Patient has a underlying history of rheumatoid arthritis mild dementia. Patient apparently has had episodes in the past where she has had significant cramping in her hands and this was alleviated by taking course of steroids. However, the patient today came in from the garden and had an episode of cramping in the hands but this was also associated with feelings that she was going to pass out, diaphoresis, and paleness. Patient's states that this lasted for quite some time, and the patient was actually amnestic to the event. Patient had some diarrhea following the event but during the event was not complaining of any abdominal pain nausea vomiting chest pain shortness of breath. She has no cardiovascular history in the past. Review of systems otherwise negative. Physical Examination: Vital signs within normal limits. Well- nourished female no acute distress. Head normocephalic atraumatic, PERRLA EOMI no evidence of nystagmus. Moist mucous membranes. Neck supple. Heart regular rate and rhythm no murmurs. Lungs sounds clear to auscultation bilaterally. Abdomen soft nontender nondistended. Back nontender. Extremities nontender nonedematous. Skin normal color no rash. Patient alert and oriented 4 no lateralizing neurological deficits. Test Results: Chest x-ray per radiology is negative. EKG shows sinus rate [address] segments normal T waves no evidence of acute changes from prior EKG. CBC unremarkable, chemistry unremarkable, troponin negative Emergency Department Course and Treatment: Patient presented for evaluation secondary to what sounded like a syncopal episode. She was worked up and was found to be negative. Given the fact that the patient was so diaphoretic and pale during the event I am somewhat concerned for the possibility that the patient had a malignant arrhythmia. I recommended admission to the patient and her , and they stated that they wish to sign out AGAINST MEDICAL ADVICE for financial reasons. Contacted the patient's primary care doctor who agrees to see the patient in follow-up. Family and patient understand to return immediately for any sort of return or worsening symptoms. Disposition: Discharge AGAINST MEDICAL ADVICE Impression: 1. Syncope This note was generated with [employer] software. It may contain incorrect words, spelling, and punctuation that were not noted in review of the chart prior to signing ED Disposition - Plan for ED Patient: Disposition: Against Medical Advice Chief Complaint: Syncope Diagnosis: Syncope Instructions: ED Fainting Unkn Cause Referrals: Néstor Thompson MD [Primary Care Provider] - As soon as possible What to do if you have Problems For any increased pain, shortness of breath, bleeding, nausea or vomiting, chest pain, or any unexpected problems, contact your Primary Care Provider. Call [facility] ([phone]) or report to the closest Emergency Room. Call 911 if necessary. 05/05/18 0235 <Electronically signed by Jimmie Ornelas MD> Date Jimmie Ornelas MD Cosigner Signature (If Indicated): Date CC: Néstor Thompson MD BASIC METABOLIC Collected: 05/04/2018 Status: F Source: MEL PROFILE (BMP) 8:21 PM [facility] TYPE CODE TESTS RESULT OUT OF RANGE REFERENCE UNITS LAB L501.0100 74-106 mg/dL Normal GLU 96 Result Comment: Please note revised GLUCOSE reference range effective 2017. LAB L501.1000 7-18 mg/dL High BUN 24 LAB L501.1100 0.55-1.02 mg/dL High CREAT,SERUM 1.29 Result Comment: The validity of the calculated GFR AND GFRAA in patients over 70 years has not been determined. Clinical correlation is essential. LAB L501.1110 >60 mL/min Low EST GFR 43 Result Comment: Non- GFR Calc LAB L501.1115 >60 mL/min Low EST GFR - AA 53 Result Comment: GFR Calc LAB L501.1255 ml/min Normal Estimated CRCL 35.04 LAB L501.1300 10-20 RATIO Normal BUN/CRE 18.6 LAB L501.2200 8.5-10 mg/dL Normal .1 CA 10.0 LAB L501.5300 136-14 mmol/L Normal 5 NA 137 LAB L501.5600 3.5-5. mmol/L Normal 1 K 4.6 Result Comment: Slight Hemolysis, Result may be falsely increased. LAB L501.5900 98-107 mmol/L Normal CL 102 LAB L501.6100 21.0-32.0 mmol/L Normal CO2 26.0 LAB L501.6200 5-15 Normal 9 GAP Performed By: #### L500.2500, L501.4010 #### [facility] [address], [address] TROPONIN-I Collected: 05/04/2018 Status: F Source: [place] 8:21 PM [facility] TYPE CODE TESTS RESULT OUT OF RANGE REFERENCE UNITS LAB L501.4010 <0.045 ng/mL Normal < 0.015 TROPONIN-I Result Comment: TROPONIN-I EXPECTED VALUES <0.045 Negative 0.045 - 0.590 Consistent with Cardiac Damage > OR = 0.600 Critical Value Not every elevated troponin is indicative of RI. These values should be used with clinical judgement in examining the patient's clinical picture for diagnosis. To establish a diagnosis of RI versus myocardial injury, there must be a demonstrated rise and/or fall in the troponin values, in addition to ischemic symptoms, EKG changes, new regional wall motion abnormality, and/or angiographical evidence. PLEASE NOTE: REFERENCE RANGES EDITED 17 Performed By: #### L500.2500, L501.4010 #### [facility] [address] [facility] [place], [address] CBC W/DIFF, AUTOMATED Collected: 05/04/2018 Status: F Source: [place] 8:21 PM [facility] TYPE CODE TESTS RESULT OUT OF RANGE REFERENCE UNITS LAB L100.1000 4.4-11.0 K/mm3 Normal WBC 10.8 LAB L100.1200 4.2-5.4 M/mm3 Low RBC 4.14 LAB L100.1300 12.0-15.0 g/dl Normal HGB 13.4 LAB L100.1400 37-47 % Normal HCT 39.5 LAB L100.1500 81-99 fL Normal MCV 95.4 LAB L100.1600 27.0-32.0 pg High MCH 32.4 LAB L100.1700 32-36 g/gl Normal MCHC 33.9 LAB L100.1810 11.6-14.6 % Normal RDW CV 12.8 LAB L100.1820 35.1-43.9 fl Normal RDW SD 43.5 LAB L100.1900 150-450 K/mm3 Normal PLT 232 LAB L100.2000 6.2-12.0 fl Normal MPV 9.7 LAB L100.2100 47-70 % High NEUT% 82.2 LAB L100.2200 19-41 % Low LY% 10.2 LAB L100.2300 0-10 % Normal MONO% 6.7 LAB L100.2400 0-5 % Normal EO% 0.4 LAB L100.2500 0-1 % Normal BASO% 0.3 LAB L100.2550 0.0-0.9 % Normal IM GRAN % 0.200 Result Comment: IG% - Immature Granulocytes (promyelocytes, myelocytes and metamyelocytes) > 1% indicates that a LEFT SHIFT is Present. LAB L100.2620 2.0-7.7 X10 3/uL High Absolute Neut 8.9 LAB L100.2720 0.83-4.51 X10 3/ul Normal Absolute Lymph 1.11 Performed By: #### L100.0100 #### [facility] [address] [facility] [place], [place], [address] CHEST PA AND LATERAL Observed: 05/04/2018 Status: F Source: [place] 8:11 PM [facility] Imaging Services [address] [place] [address] Chest PA and Lateral MR#: [id number] Acct: [id number] Name: MADDENRICHA J Rep #: [id number] : 1950 F 68 From: Madhuri Ramos MD PCP: Donna YOUNG,Néstor Status: REG ER Study: Chest PA and Lateral Date of Exam: 05/04/18 Exam# [id number] Ordering Dr: Jimmie Ornelas MD STUDY: X-RAY CHEST REASON FOR EXAM: Female, 68 years old. Chest pain. TECHNIQUE: PA and lateral views of the chest. COMPARISON: January 24, 2014 FINDINGS: There is no new focal consolidation. There is a stable nodule projecting over the left lower lung associated with surgical clips. Normal size heart. Normal mediastinum and carole. Normal visualized pulmonary arteries. There is atherosclerotic calcification of the aortic arch. There are diffuse degenerative changes of the visualized thoracic spine. Normal visualized ribs, clavicles, and shoulders. There is no demonstrated abnormality of the visualized soft tissue structures of the upper abdomen. RAD/Chest PA and Lateral IMPRESSION: No acute cardiopulmonary process. Electronically Signed: Madhuri Ramos MD at 21:40 EDT Tel , Service support , CC: Néstor Thompson MD; Jimmie Ornelas Presentation Designer: Signed COMPREHENSIVE METABOLIC Collected: 04/20/2018 Status: F Source: MEL [place] 11:01 AM [facility] TYPE CODE TESTS RESULT OUT OF RANGE REFERENCE UNITS LAB L501.0100 74-106 mg/dL Normal GLU 96 Result Comment: Please note revised GLUCOSE reference range effective 2017. LAB L501.1000 7-18 mg/dL Normal BUN 13 LAB L501.1100 0.55-1.02 mg/dL Normal CREAT,SERUM 0.77 Result Comment: The validity of the calculated GFR AND GFRAA in patients over 70 years has not been determined. Clinical correlation is essential. LAB L501.1110 >60 mL/min Normal EST GFR 79 Result Comment: Non- GFR Calc LAB L501.1115 >60 mL/min Normal EST GFR - AA 95 Result Comment: GFR Calc LAB L501.1300 10-20 RATIO Normal BUN/CRE 16.8 LAB L501.1500 6.4-8.2 g/dL T Normal PROT 6.9 LAB L501.1800 3.2-5.0 g/dL Normal ALB 3.7 LAB L501.1950 2.2-4.2 g/dL Normal GLOB 3.2 LAB L501.2000 0.9-2.4 RATIO Normal A/G 1.2 LAB L501.2200 8.5-10.1 mg/dL CA Normal 8.9 LAB L501.4100 15-37 U/L Normal AST 24 LAB L501.4305 45-117 U/L Normal ALK P 69 LAB L501.4405 13-56 U/L Normal ALT 35 LAB L501.4600 0.20-1.00 mg/dL T Normal BILI 0.40 LAB L501.5300 136-145 mmol/L NA Normal 141 LAB L501.5600 3.5-5.1 mmol/L K Normal 3.9 LAB L501.5900 98-107 mmol/L CL Normal 107 LAB L501.6100 21.0-32.0 mmol/L Normal CO2 28.0 LAB L501.6200 5-15 Normal GAP 6 Performed By: #### L500.4050 #### [facility] [address] [place], [address] CBC W/DIFF, AUTOMATED Collected: 04/20/2018 Status: F Source: [place] 11:01 AM [facility] TYPE CODE TESTS RESULT OUT OF RANGE REFERENCE UNITS LAB L100.1000 4.4-11.0 K/mm3 Normal WBC 4.8 LAB L100.1200 4.2-5.4 M/mm3 Low RBC 4.06 LAB L100.1300 12.0-15.0 g/dl Normal HGB 13.1 LAB L100.1400 37-47 % Normal HCT 39.3 LAB L100.1500 81-99 fL Normal MCV 96.8 LAB L100.1600 27.0-32.0 pg High MCH 32.3 LAB L100.1700 32-36 g/gl Normal MCHC 33.3 LAB L100.1810 11.6-14.6 % Normal RDW CV 13.1 LAB L100.1820 35.1-43.9 fl High RDW SD 45.2 LAB L100.1900 150-450 K/mm3 Normal PLT 244 LAB L100.2000 6.2-12.0 fl Normal MPV 9.8 LAB L100.2100 47-70 % Normal NEUT% 61.9 LAB L100.2200 19-41 % Normal LY% 27.3 LAB L100.2300 0-10 % Normal MONO% 7.3 LAB L100.2400 0-5 % Normal EO% 2.9 LAB L100.2500 0-1 % Normal BASO% 0.6 LAB L100.2550 0.0-0.9 % Normal IM GRAN % 0.000 Result Comment: IG% - Immature Granulocytes (promyelocytes, myelocytes and metamyelocytes) > 1% indicates that a LEFT SHIFT is Present. LAB L100.2620 2.0-7.7 X10 3/uL Normal Absolute Neut 3.0 LAB L100.2720 0.83-4.51 X10 3/ul Normal Absolute Lymph 1.30 Performed By: #### L100.0100 #### [facility] [address] [facility] [place], [address] DOWNTIME REPORT Observed: 02/04/2018 Status: F Source: [place] 2:03 PM [facility] Medical Records Department [address] [place] [address] Downtime Report MR#: [id number] Acct: [id number] Name: RICHA MADDEN Rep #: [id number] : 1950 67 From: Husam Radford PCP: Néstor Thompson MD Status: REG CLI This patient was seen during an EMR downtime January 18, 2018 - January 25, 2018. This patient may have a combination of paper and electronic documentation or all paper documentation. All documentation is viewable within the e-chart portion of [employer] for each patient visit. PROGRESS Observed: 02/03/2018 Status: COMPLETED Source: [place] 10:45 AM [facility] REPOSITORY O ID: [id number] Author: Néstor Thompson Service: (none) Author Type: Physician Type: Progress Notes Filed: 02/14/2018 9:47 PM Note Text: Patient presents with: Recheck SUBJECTIVE: Richa Madden is a 67 year old year old lady here today for follow up appointment for review of medical conditions. Concerns today: recurrence of facial pain on lower dose Cymbalta no reflux Noted that had wanted to taper off Cymbalta since depression and anxiety symptoms had resolved. 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; would resolve with treatment - Coccydynia pain management at [facility] - Esophagitis, unspecified - Hair loss - History of Helicobacter pylori infection - Malignant neoplasm of breast (female), unspecified site Breast cancer - Malignant neoplasm of central portion of female breast (HCC) 06/2007 left lumpectomy with axillary dissection, right lumpectomy for DCIS - Memory loss 02/25/2016 - Mitral valve disorders(424.0) - Obstructive sleep apnea - Other specified disease of pancreas 06/23 anesthesia - Sacroiliitis (HCC) - Sinusitis - Viral meningitis - Viral meningitis Current Outpatient Prescriptions: DULoxetine (CYMBALTA) 20 mg capsule Take 1 capsule by mouth twice daily. Cholecalciferol, Vitamin D3, (VITAMIN D-3) 2,000 unit cap Take by mouth once daily. calcium carbonate/vitamin D2 (CALCIUM 600 WITH VITAMIN D ORAL) Take by mouth once daily. donepezil (ARICEPT) 10 mg tablet Take 1 tablet by mouth daily with breakfast. fluticasone (FLONASE) 50 mcg/actuation nasal spray Use 1-2 Sprays in each nostril once daily. Rinse mouth after use. albuterol HFA (PROAIR HFA) 90 mcg/actuation inhaler Inhale 2 Puffs as instructed every 4 hours as needed. pantoprazole DR (PROTONIX) 40 mg tablet Take 1 tablet by mouth twice daily. Multivitamin capsule Take 1 capsule by mouth once daily. folic acid 1 mg tablet 1 mg twice daily. methotrexate 2.5 mg tablet 6 tablets once per week CPAP AutoPAP 5-15 cmH2O, suitable mask, humidity, filters. Lifetime supplies. Dx: G47.33 COMPOUNDED PRESCRIPTION Overnight pulse ox 6-8 weeks after CPAP set up per sleep study recommendationsDiagnoses: (G47.33, Z99.89) CRISTINA on CPAP; (G47.34) Nocturnal hypoxemia lactobac cmb #[id number] (PROBIOTIC AND ACIDOPHILUS) 300-250 million cell-mg cap Take 1 capsule by mouth twice daily. EPINEPHrine (EPIPEN) 0.3 mg/0.3 mL (1:1,000) auto-injector Inject 0.3 mg intramuscularly as needed. No current facility-administered medications for this visit. OBJECTIVE: BP 124/50 (BP Site: Left Arm, BP Position: Sitting, BP Cuff Size: Regular Adult) Pulse 64 Resp 12 Wt 85.7 kg (189 lb) BMI 31.94 kg/m? Patient is alert, oriented times 3, no apparent distress, affect is bright, reactive. Last 5 Encounter BP Readings: Date: BP: 02/03/2018 124/50 12/16/2017 143/73 09/07/2017 152/68 08/14/2017 132/72 08/13/2017 120/70 Last 5 Encounter Wt Readings: Date: Wt: 02/03/2018 85.7 kg (189 lb) 09/07/2017 83 kg (183 lb) 08/14/2017 82.1 kg (181 lb) 08/07/2017 82.1 kg (181 lb) 08/01/2017 81.6 kg (180 lb) Heart: Regular rate, rhythm, no murmurs, gallops, rubs. Lungs: Clear to auscultation, bilaterally, breathing non labored. Ext: No cyanosis, clubbing, or edema. Component Latest Ref Rng AND Units 06/17/2017 06/22/2017 07/28/2017 WBC 3.70 - 11.00 k/uL 9.19 RBC 3.90 - 5.20 m/uL 4.42 Hemoglobin 11.5 - 15.5 g/dL 14.0 Hematocrit 36.0 - 46.0 % 44.1 MCV 80.0 - 100.0 fL 99.8 MCH 26.0 - 34.0 pG 31.7 MCHC 30.5 - 36.0 g/dL 31.7 RDW-CV 11.5 - 15.0 % 13.5 Platelet Count 150 - 400 k/uL 299 MPV 9.0 - 12.7 fL 9.9 Neut% % 85.8 Abs Neut (ANC) 1.45 - 7.50 k/uL 7.88 (H) Lymph% % 9.0 Abs Lymph 1.00 - 4.00 k/uL 0.83 (L) [place]% % 5.0 Abs [place] <0.87 k/uL 0.46 Eosin% % 0.0 Abs Eosin <0.46 k/uL <0.03 Baso% % 0.2 Abs Baso <0.11 k/uL <0.03 Nucleated Reds 0 /100 WBC 0.0 Absolute nRBC <0.01 k/uL <0.01 Diff Type Auto Diff Protein, Total 6.3 - 8.0 g/dL 7.3 Albumin 3.9 - 4.9 g/dL 4.6 Calcium 8.5 - 10.2 mg/dL 9.9 Bilirubin, Total 0.2 - 1.3 mg/dL 0.2 Alkaline Phosphatase 32 - 117 U/L 42 AST 13 - 35 U/L 21 Glucose 74 - 99 mg/dL 119 (H) BUN 7 - 21 mg/dL 15 Creatinine 0.58 - 0.96 mg/dL 0.76 Sodium 136 - 144 mmol/L 140 Potassium 3.7 - 5.1 mmol/L 4.4 Chloride 97 - 105 mmol/L 99 CO2 22 - 30 mmol/L 29 Anion Gap 9 - 18 mmol/L 12 ALT 7 - 38 U/L 20 eGFR- >60 eGFR-All Other Races . >60 Triglyceride 30 - 149 mg/dL 162 (H) Cholesterol, Total 100 - 199 mg/dL 234 (H) HDL Cholesterol >55 mg/dL 65 VLDL Cholesterol 6 - 40 mg/dL 32 LDL Cholesterol 60 - 129 mg/dL 137 (H) Fasting Time hrs 14 TC:HDL Ratio 1.00 - 5.00 3.60 LDL:HDL Ratio 0.50 - 3.55 2.11 Non HDL Cholesterol 90 - 159 mg/dL 169 (H) Vitamin B12 211 - 946 pg/mL 1,099 (H) TSH 0.400 - 5.500 uU/mL 0.232 (L) 1.090 T3 79 - 165 ng/dL 88 94 Free T4 0.9 - 1.7 ng/dL 1.6 1.4 ASSESSMENT AND PLAN: Encounter Diagnosis ICD-10-CM 1. Facial pain R51 Discussed that Cymbalta is used for chronic pain management. Okay to bump dose back up and does not have to taper off if still needing the Cymbalta for controlling the facial pain. Can try again after a few months of controlled facial pain to titrate dose down again if wants to. Above issues addressed with patient. Patient involved in shared decision making for management of her medical issues. History and medications reviewed. Epic updated as needed Refills taken care of and meds adjusted as indicated after reviewed history, exam and labs. Health Maintenance reviewed. Updated record and/or ordered tests as recorded. Encouraged on efforts at healthy diet and regular exercise and adequate sleep. The majority of the visit was spent counseling and/or coordinating care for the patient. Eean-uw-ngxo time was at least 15 minutes. Néstor Thompson MD CNOV Observed: 02/03/2018 Status: COMPLETED Source: [place] 10:20 AM [facility] REPOSITORY Office Visit (INTMWS) MADDENRICHA ([id number]) 1950 F Date Time Provider Department 02/03/18 10:20 AM NÉSTOR THOMPSON INTMWS During your visit today, we recorded the following information about you: Pulse Respiration Blood pressure Weight 64/minute 12/minute 124/50 85.7 kg Néstor Thompson MD 02/14/2018 9:47 PM Signed Patient presents with: Recheck SUBJECTIVE: Richa Madden is a 67 year old year old lady here today for follow up appointment for review of medical conditions. Concerns today: recurrence of facial pain on lower dose Cymbalta no reflux Noted that had wanted to taper off Cymbalta since depression and anxiety symptoms had resolved. 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; would resolve with treatment - [facility] - Esophagitis, unspecified - Hair loss - History of Helicobacter pylori infection - Malignant neoplasm of breast (female), unspecified site Breast cancer - Malignant neoplasm of central portion of female breast (HCC) 06/2007 left lumpectomy with axillary dissection, right lumpectomy for DCIS - Memory loss 02/25/2016 - Mitral valve disorders(424.0) - Obstructive sleep apnea - Other specified disease of pancreas 06/23 anesthesia - Sacroiliitis (HCC) - Sinusitis - Viral meningitis - Viral meningitis Current Outpatient Prescriptions: DULoxetine (CYMBALTA) 20 mg capsule Take 1 capsule by mouth twice daily. Cholecalciferol, Vitamin D3, (VITAMIN D-3) 2,000 unit cap Take by mouth once daily. calcium carbonate/vitamin D2 (CALCIUM 600 WITH VITAMIN D ORAL) Take by mouth once daily. donepezil (ARICEPT) 10 mg tablet Take 1 tablet by mouth daily with breakfast. fluticasone (FLONASE) 50 mcg/actuation nasal spray Use 1-2 Sprays in each nostril once daily. Rinse mouth after use. albuterol HFA (PROAIR HFA) 90 mcg/actuation inhaler Inhale 2 Puffs as instructed every 4 hours as needed. pantoprazole DR (PROTONIX) 40 mg tablet Take 1 tablet by mouth twice daily. Multivitamin capsule Take 1 capsule by mouth once daily. folic acid 1 mg tablet 1 mg twice daily. methotrexate 2.5 mg tablet 6 tablets once per week CPAP AutoPAP 5-15 cmH2O, suitable mask, humidity, filters. Lifetime supplies. Dx: G47.33 COMPOUNDED PRESCRIPTION Overnight pulse ox 6-8 weeks after CPAP set up per sleep study recommendationsDiagnoses: (G47.33, Z99.89) CRISTINA on CPAP; (G47.34) Nocturnal hypoxemia lactobac cmb #6-[id number] (PROBIOTIC AND ACIDOPHILUS) 300-250 million cell-mg cap Take 1 capsule by mouth twice daily. EPINEPHrine (EPIPEN) 0.3 mg/0.3 mL (1:1,000) auto-injector Inject 0.3 mg intramuscularly as needed. No current facility-administered medications for this visit. OBJECTIVE: BP 124/50 (BP Site: Left Arm, BP Position: Sitting, BP Cuff Size: Regular Adult) Pulse 64 Resp 12 Wt 85.7 kg (189 lb) BMI 31.94 kg/m? Patient is alert, oriented times 3, no apparent distress, affect is bright, reactive. Last 5 Encounter BP Readings: Date: BP: 02/03/2018 124/50 12/16/2017 143/73 09/07/2017 152/68 08/14/2017 132/72 08/13/2017 120/70 Last 5 Encounter Wt Readings: Date: Wt: 02/03/2018 85.7 kg (189 lb) 09/07/2017 83 kg (183 lb) 08/14/2017 82.1 kg (181 lb) 08/07/2017 82.1 kg (181 lb) 08/01/2017 81.6 kg (180 lb) Heart: Regular rate, rhythm, no murmurs, gallops, rubs. Lungs: Clear to auscultation, bilaterally, breathing non labored. Ext: No cyanosis, clubbing, or edema. Component Latest Ref Rng AND Units 06/17/2017 06/22/2017 07/28/2017 WBC 3.70 - 11.00 k/uL 9.19 RBC 3.90 - 5.20 m/uL 4.42 Hemoglobin 11.5 - 15.5 g/dL 14.0 Hematocrit 36.0 - 46.0 % 44.1 MCV 80.0 - 100.0 fL 99.8 MCH 26.0 - 34.0 pG 31.7 MCHC 30.5 - 36.0 g/dL 31.7 RDW-CV 11.5 - 15.0 % 13.5 Platelet Count 150 - 400 k/uL 299 MPV 9.0 - 12.7 fL 9.9 Neut% % 85.8 Abs Neut (ANC) 1.45 - 7.50 k/uL 7.88 (H) Lymph% % 9.0 Abs Lymph 1.00 - 4.00 k/uL 0.83 (L) [place]% % 5.0 Abs [place] <0.87 k/uL 0.46 Eosin% % 0.0 Abs Eosin <0.46 k/uL <0.03 Baso% % 0.2 Abs Baso <0.11 k/uL <0.03 Nucleated Reds 0 /100 WBC 0.0 Absolute nRBC <0.01 k/uL <0.01 Diff Type Auto Diff Protein, Total 6.3 - 8.0 g/dL 7.3 Albumin 3.9 - 4.9 g/dL 4.6 Calcium 8.5 - 10.2 mg/dL 9.9 Bilirubin, Total 0.2 - 1.3 mg/dL 0.2 Alkaline Phosphatase 32 - 117 U/L 42 AST 13 - 35 U/L 21 Glucose 74 - 99 mg/dL 119 (H) BUN 7 - 21 mg/dL 15 Creatinine 0.58 - 0.96 mg/dL 0.76 Sodium 136 - 144 mmol/L 140 Potassium 3.7 - 5.1 mmol/L 4.4 Chloride 97 - 105 mmol/L 99 CO2 22 - 30 mmol/L 29 Anion Gap 9 - 18 mmol/L 12 ALT 7 - 38 U/L 20 eGFR- >60 eGFR-All Other Races . >60 Triglyceride 30 - 149 mg/dL 162 (H) Cholesterol, Total 100 - 199 mg/dL 234 (H) HDL Cholesterol >55 mg/dL 65 VLDL Cholesterol 6 - 40 mg/dL 32 LDL Cholesterol 60 - 129 mg/dL 137 (H) Fasting Time hrs 14 TC:HDL Ratio 1.00 - 5.00 3.60 LDL:HDL Ratio 0.50 - 3.55 2.11 Non HDL Cholesterol 90 - 159 mg/dL 169 (H) Vitamin B12 211 - 946 pg/mL 1,099 (H) TSH 0.400 - 5.500 uU/mL 0.232 (L) 1.090 T3 79 - 165 ng/dL 88 94 Free T4 0.9 - 1.7 ng/dL 1.6 1.4 ASSESSMENT AND PLAN: Encounter Diagnosis ICD-10-CM 1. Facial pain R51 Discussed that Cymbalta is used for chronic pain management. Okay to bump dose back up and does not have to taper off if still needing the Cymbalta for controlling the facial pain. Can try again after a few months of controlled facial pain to titrate dose down again if wants to. Above issues addressed with patient. Patient involved in shared decision making for management of her medical issues. History and medications reviewed. Epic updated as needed Refills taken care of and meds adjusted as indicated after reviewed history, exam and labs. Health Maintenance reviewed. Updated record and/or ordered tests as recorded. Encouraged on efforts at healthy diet and regular exercise and adequate sleep. The majority of the visit was spent counseling and/or coordinating care for the patient. Guff-kj-dxcp time was at least 15 minutes. Néstor Thompson MD Referring Provider: NÉSTOR THOMPSON [[id number]] Allergies As of Date: 02/03/2018 Noted Allergy Reaction TEGRETOL (CARBAMAZEPINE) 03/02/2012 1 - Mental Status Change 8 - GI Upset 14 - Other: See Comments Comments: Decreased sodium, sore throat. (hyponatremia) BEES 03/31/2014 7 - Swelling CODEINE 07/12/2007 5 - Intolerance Comments: Horrible side effects causing pancreatitis ELAVIL (AMITRIPTYLINE) 09/09/2011 7 - Swelling 10 - Anaphylaxis PREVACID (LANSOPRAZOLE) 01/13/2012 8 - GI Upset Comments: severe sodium pentathol [Other] 09/19/2005 11 - Vomiting THIOPENTAL SODIUM 06/25/2007 11 - Vomiting ADHESIVE TAPE (ROSINS) 06/25/2007 2 - Rash steristrips/adhesive [Other] 06/24/2007 2 - Rash Date Reviewed: 02/03/2018 Reviewed by: Yunior Todd - Fully Assessed Reason for Visit: Recheck [92] Primary Visit Diagnosis:Facial pain [R51] Order(s):DULoxetine (CYMBALTA) 60 mg capsuleTake 1 capsule by mouth once daily.Disp: 30 capsuleRfl: 11 Prescriptions as of 02/03/2018 Sig: CHOLECALCIFEROL (VITAMIN D3) * Take by mouth once daily. CALCIUM 600 WITH VITAMIN D OR* Take by mouth once daily. DONEPEZIL 10 MG TABLET Take 1 tablet by mouth daily * FLUTICASONE 50 MCG/ACTUATION * Use 1-2 Sprays in each nostri* ALBUTEROL SULFATE HFA 90 MCG/* Inhale 2 Puffs as instructed * PANTOPRAZOLE 40 MG TABLET,DEL* Take 1 tablet by mouth twice * MULTIVITAMIN CAPSULE Take 1 capsule by mouth once * FOLIC ACID 1 MG TABLET 1 mg twice daily. METHOTREXATE SODIUM 2.5 MG TA* 6 tablets once per week CPAP AutoPAP 5-15 cmH2O, suitable * COMPOUNDED PRESCRIPTION Overnight pulse ox 6-8 weeks * LACTOBACILLUS COMB NO.3-FOS-P* Take 1 capsule by mouth twice* EPINEPHRINE 0.3 MG/0.3 ML INJ* Inject 0.3 mg intramuscularly* DULOXETINE 60 MG CAPSULE,PAULINA* Take 1 capsule by mouth once * Medication notes this encounter METHOTREXATE SODIUM 2.5 MG TABLET >> Néstor Thompson MD 02/03/2018 11:34 AM >> NÉSTOR THOMPSON MD ThuFeb 03, 2018 11:34 AM Resumed Problem List As Of Date 02/03/2018 Noted Resolved INFECTIOUS ENTERITIS NOS [A09] INVALID FOR* MALIG NEOPLASM BREAST-CENTRAL [C50.119] INVALID FOR* MALIGN NEOPL BREAST NOS [C50.919] INVALID FOR* Abdominal pain, generalized [R10.84] INVALID FOR*08/07/2017 Acute pancreatitis [K85.90] INVALID FOR*08/07/2017 Drug induced neutropenia(288.03) [D70.2] INVALID FOR*08/20/2017 CA IN SITU BREAST [D05.90] INVALID FOR* PERS HX OF BREAST MALIGNANCY [Z85.3] INVALID FOR* Hyperlipidemia [E78.5] INVALID FOR* OVERWEIGHT [E66.9] INVALID FOR* Vitamin D Deficiency [E55.9] INVALID FOR* Mastitis [N61.0] INVALID FOR* GERD (Gastroesophageal Reflux Disease) [K21.9] INVALID FOR* Coccydynia [M53.3] 08/07/2017 Sacroiliitis [M46.1] White matter abnormality on MRI of brain [R93.0]INVALID FOR* More... Acute gastritis without mention of hemorrhage [*INVALID FOR* Esophagitis, unspecified [K20.9] INVALID FOR* Sleep apnea [G47.30] INVALID FOR*12/30/2015 More... UTI (lower urinary tract infection) [N39.0] INVALID FOR* More... LPRD (laryngopharyngeal reflux disease) [K21.9] INVALID FOR* Obstructive sleep apnea [G47.33] Memory loss [R41.3] INVALID FOR* Facial pain [R51] INVALID FOR* Bilateral fibrocystic breast changes [N60.11, N*INVALID FOR* Dense breasts [R92.2] INVALID FOR* Personal history of breast cancer [Z85.3] INVALID FOR* Examination of participant in clinical trial [Z*INVALID FOR* More... 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 Medications Discontinued During This Encounter DULoxetine (CYMBALTA) 20 mg capsule 60 c* 5 01/20/2018 02/03/2018 Cmt: Intentional dose decrease Route: ORAL Sig: Take 1 capsule by mouth twice daily. Disc: Dosage adjustment Disposition: Return in about 6 months (around 08/05/2018) for 6 months follow up. Follow-up and Disposition History Recorded Encounter Status:Closed by NÉSTOR THOMPSON MD on 02/14/18 CBC W/DIFF, AUTOMATED Collected: 01/25/2018 Status: F Source: [place] 11:21 AM [facility] [place] TYPE CODE TESTS RESULT OUT OF RANGE REFERENCE UNITS LAB L100.1000 4.4-11.0 K/mm3 Normal WBC 4.4 LAB L100.1200 4.2-5.4 M/mm3 Low RBC 4.14 LAB L100.1300 12.0-15.0 g/dl Normal HGB 13.2 LAB L100.1400 37-47 % Normal HCT 39.8 LAB L100.1500 81-99 fL Normal MCV 96.1 LAB L100.1600 27.0-32.0 pg Normal MCH 31.9 LAB L100.1700 32-36 g/gl Normal MCHC 33.2 LAB L100.1810 11.6-14.6 % Normal RDW CV 13.3 LAB L100.1820 35.1-43.9 fl High RDW SD 45.4 LAB L100.1900 150-450 K/mm3 Normal PLT 248 LAB L100.2000 6.2-12.0 fl Normal MPV 9.8 LAB L100.2100 47-70 % Normal NEUT% 58.5 LAB L100.2200 19-41 % Normal LY% 30.1 LAB L100.2300 0-10 % Normal MONO% 8.0 LAB L100.2400 0-5 % Normal EO% 3.2 LAB L100.2500 0-1 % Normal BASO% 0.2 LAB L100.2550 0.0-0.9 % Normal IM GRAN % 0.000 Result Comment: IG% - Immature Granulocytes (promyelocytes, myelocytes and metamyelocytes) > 1% indicates that a LEFT SHIFT is Present. LAB L100.2620 2.0-7.7 X10 3/uL Normal Absolute Neut 2.6 LAB L100.2720 0.83-4.51 X10 3/ul Normal Absolute Lymph 1.32 Performed By: #### L100.0100 #### [facility] [address] [place], [place], [id number] COMPREHENSIVE METABOLIC Collected: 01/25/2018 Status: F Source: [facility] 11:21 AM [facility] [place] TYPE CODE TESTS RESULT OUT OF RANGE REFERENCE UNITS LAB L501.0100 74-106 mg/dL Normal GLU 84 Result Comment: Please note revised GLUCOSE reference range effective 2017. LAB L501.1000 7-18 mg/dL Normal BUN 13 LAB L501.1100 0.55-1.02 mg/dL Normal CREAT,SERUM 0.80 Result Comment: The validity of the calculated GFR AND GFRAA in patients over 70 years has not been determined. Clinical correlation is essential. LAB L501.1110 >60 mL/min Normal EST GFR 76 Result Comment: Non- GFR Calc LAB L501.1115 >60 mL/min Normal EST GFR - AA 91 Result Comment: GFR Calc LAB L501.1300 10-20 RATIO Normal BUN/CRE 16.3 LAB L501.1500 6.4-8.2 g/dL T Normal PROT 6.9 LAB L501.1800 3.2-5.0 g/dL Normal ALB 3.7 LAB L501.1950 2.2-4.2 g/dL Normal GLOB 3.2 LAB L501.2000 0.9-2.4 RATIO Normal A/G 1.2 LAB L501.2200 8.5-10.1 mg/dL CA Normal 8.9 LAB L501.4100 15-37 U/L Normal AST 25 LAB L501.4305 45-117 U/L Normal ALK P 59 LAB L501.4405 13-56 U/L Normal ALT 40 LAB L501.4600 0.20-1.00 mg/dL T Normal BILI 0.40 LAB L501.5300 136-145 mmol/L NA Normal 141 LAB L501.5600 3.5-5.1 mmol/L K Normal 4.1 LAB L501.5900 98-107 mmol/L CL Normal 105 LAB L501.6100 21.0-32.0 mmol/L Normal CO2 28.0 LAB L501.6200 5-15 Normal GAP 8 Performed By: #### L500.4050 #### [facility] 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 of containers..01 ThinPrep Vial TYPE CODE TESTS RESULT OUT OF RANGE REFERENCE UNITS LAB L7400.0800 . Normal DIAGN Comment Result Comment: NEGATIVE FOR INTRAEPITHELIAL LESION AND MALIGNANCY. CELLULAR CHANGES ASSOCIATED WITH ATROPHY ARE PRESENT. LAB L7400.0900 . Normal ADEQ Comment Result Comment: Satisfactory for evaluation. Endocervical and/or squamous metaplastic cells (endocervical component) are present. LAB L7400.1400 . Normal PERFORM Comment Result Comment: Mary Mo, Architect [employer] (ASCP) LAB L7400.2575 . Normal TEST METHOD Comment Result Comment: This liquid based ThinPrep(R) pap test was screened with the use of an image guided system. LAB L7400.2600 . Normal . COMM LAB L7400.2700 . Normal PAPSMR Comment Result Comment: The Pap smear is a screening test designed to aid in the detection of premalignant and malignant conditions of the uterine cervix. It is not a diagnostic procedure and should not be used as the sole means of detecting cervical cancer. Both false-positive and false-negative reports do occur. LAB L7400.2800 . Normal HPV RFLX Comment Result Comment: The HPV DNA reflex criteria were not met with this specimen result therefore, no HPV testing was performed. Performed at: [address] [id number] Tube Carrier: Hannah Lindo MD, Phone: [phone] Performed By: #### L7400.0350 #### [facility] [place] (refer to report for specific site) refer to report for address and phone number [facility] Observed: 12/16/2017 Status: F Source: [place] 3:07 PM [facility] REPOSITORY * * *Final Report* * * DATE OF EXAM: Dec 16 2017 3:07PM CLARA 0620 - [facility] / PROCEDURE REASON: multiple diagnoses * * * * Physician Interpretation * * * * RESULT: #[id number] - [facility] BILATERAL DIGITAL DIAGNOSTIC MAMMOGRAM WITH CAD: 12/16/2017 HISTORY: Multiple Diagnoses. RESULT: TECHNIQUE: The study was acquired using full field digital technology and interpreted from soft copy. Current study was also evaluated with a Computer Aided Detection (CAD). Comparison is made to exams dated: 08/25/2017 localization, 06/24/2017 ultrasound biopsy - [facility], 06/17/2017 mammogram, 05/13/2016 mammogram, and 05/08/2015 mammogram - [facility] [place]. The tissue of both breasts is heterogeneously dense. This may lower the sensitivity of mammography. The patient is status post lumpectomy both breasts. Both breasts have post-operative findings. There is a stable benign dystrophic calcification in the left breast in the upper outer quadrant that correlates with clinical concern and surgical site. No significant masses, calcifications, or other findings are seen in either breast. IMPRESSION: BENIGN FINDING There is no mammographic evidence of malignancy.A 1 year screening mammogram is recommended. Hermila manzano/fidelina:12/16/2017 15:11:36 Produce Production Team Member: Elissa POTTER (R)(Georgie), [facility] [place] Mammogram BI-RADS: 2 Benign finding Presentation Designer: Fidelina Transcribe Date/Time: Dec 16 2017 2:50P Dictated by : HERMILA VALDIVIA MD This examination was interpreted and the report reviewed and electronically signed by: HERMILA VALDIVIA MD on Dec 16 2017 3:11PM EST [id number] Observed: 12/16/2017 Status: COMPLETED Source: [place] 2:10 PM [facility] REPOSITORY HNO ID: [id number] Author: Shreyas Galvan Service: (none) Author Type: Physician Type: Progress Notes Filed: 12/18/2017 10:15 AM Note Text: MEDICAL BREAST HISTORY of PRESENT ILLNESS: Richa Madden is a 67 year 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 The patient denies any breast masses, pain, skin changes, or nipple discharge. In 05/23 she had a right core biopsy showing low grade DCIS which was ER+(80%)/NE+(80%). In 06/23 she had bilateral partial mastectomies per Dr. Lopez showing grade 2 DCIS on the right and a 1.8 cm IDC on the left which was ER+(90%)/NE-/HER2-. She had 0/2 SLN on the left and 0/3LN. She received chemotherapy per Dr. Farhat Zhou: Following the 1st cycle of docetaxel and cyclophosphamide she developed acute pancreatitis on day 3 of therapy. She was hospitalized for approximately 1 week at [facility]. A CT scan and MRI showed no significant abnormalities. Chemotherapy was changed to AC to avoid corticosteroids which may have contributed to the acute pancreatitis. Completed 3 cycles AC (last 10/15/07; no dose delays or reductions). She then completed bilateral whole breast irradiation and nearly completed 5 years (short 3 months) of AI therapy due to arthralgias. She has had memory issues. On her screening mammogram 06/17/17, a 1.4cm spiculated mass was seen in the right upper outer breast at 10pm 4cmfn. Core biopsy and excision were benign. Her vitamin D level was Vitamin D 25 Hydroxy (ng/mL) Date Value 04/25/2017 65.5 . She takes Ca/D once daily plus 2000U of D. BMD: Yes / 06/26 osteopenia -1.3 ; on Fosomax in past PERSONAL BREAST HISTORY: Past breast history (prior to this encounter) is as follows: Breast biopsy: Yes, in addition to the above bilateral biopsies, she has had the followin/08 right core biopsy benign 10/22 right excisional biopsy showing ADH/UDH 08/29 right MRI guided biopsy showing adenosis 03/30 right core biopsy showing fibrosis 04/02 right core biopsy - benign (discordant; excised) Breast cysts: No Breast surgery: Yes, bilateral partial mastectomies 06/23 as above and right excisional biopsy 10/22; 09/[address] Traore which was benign. Breast cancer: Yes, Right Stage 0 ER+ DCIS 2006treated with breast conservation and 5y AI Left Stage 1 IDC ER+/HER2- cancer 2006 treated with breast conservation, chemotherapy and 5 years of endocrine therapy CANCER SURVEILLANCE: Mammograms: Yes / 05/02 negative Breast MRI: Yes / last in 08/29 prompting the MRI guided biopsy Colonoscopy: Yes / [address] Bo Abernathy at [place] per pt report RISK FACTORS FOR BREAST CANCER: Age at the onset of menses: 14 years of age. P: 1 Age at the of first child: 30 years of age. She breast fed Age at menopause: 49 years of age. Post-menopausal hormone therapy: Yes, she did take combined HT until her diagnosis She is S/P total hysterectomy with negative pathology (had uterine prolapse) History of Mantle Radiation prior to the age of 28: No Postmenopausal obesity: Yes, she is 5'4 and weighs 180 pounds There is no height or weight on file to calculate BMI. 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; would resolve with treatment - [facility] - Esophagitis, unspecified - Hair loss - History of Helicobacter pylori infection - Malignant neoplasm of breast (female), unspecified site Breast cancer - Malignant neoplasm of central portion of female breast (HCC) 06/2007 left lumpectomy with axillary dissection, right lumpectomy for DCIS - Memory loss 02/25/2016 - Mitral valve disorders(424.0) - Obstructive sleep apnea - Other specified disease of pancreas 06/23 anesthesia - Sacroiliitis (HCC) - Sinusitis - Viral meningitis - Viral meningitis Patient specifically denies history of: DVT, PE, Migraine headaches, Abnormal uterine bleeding , Abnormal uterine biopsies , Osteopenia and Osteoporosis. PAST SURGICAL HISTORY: PAST SURGICAL HISTORY Procedure Laterality Date - BREAST BIOPSY CORE 09/29/2012 right breast MRI guided - BRST BX STEREO LT VACCUUM ASSIST 04 Left - CERVIX UTERI CONIZA LP ELCTRO EXCI LEEP-Cervix - COLONOSCOP W/ OR W/O BRSH SPEC 2010 Colonoscopy - EGD W/O BRS SPECIMEN W/BX [id number] - EGD W/O OR W/BRUSH/WASH 01/06/13 EGD - EGD W/O OR W/BRUSH/WASH 05/01/2014 EGD - EXCIS BREAST LES W XRAY MARKER Right 08/25/2017 Dr. Traore rt needle loc breast bx - LAPAROSCOPIC CHOLEYCYSTECTOMY Cholecystectomy, lap - LEFT HEART CATH,PERCUTANEOUS Cardiac cath, L heart - MASTEC PARTIAL W AXILL NODE REMOV 06-25-07 Right NL PM/AXD - MASTECTOMY PARTIAL 11/10/07 Right Re-Ex PM - PAST SURGICAL HISTORY OF Surgery for endometriosis - PAST SURGICAL HISTORY OF Neuroma left foot - PAST SURGICAL HISTORY OF 2013 hysterectomy (Dr. Campbell) - STEREOTACTIC CORE BIOPSY 05/05/07 LEFT - US BREAST NEEDLE CORE BIOPSY RT 03/31/2014 right breast - VACUUM ASSISTED BREAST BIOPSY 09/15/2012 MRI guided right breast SOCIAL HISTORY: Social History Substance Use Topics - Smoking status: Never Smoker - Smokeless tobacco: Never Used - Alcohol use No Caffeine intake: occ Exercise: Never FAMILY HISTORY: Family history of breast cancer: None Family history of ovarian cancer: None Number of sisters: 2 Number of maternal aunts: 1 Number of paternal aunts: 2 Ashkenazi Ancestry: no Has Patient had Genetic Testing? Yes, negative BRCA testing per her report Have any Family Members had Genetic Testing? No Other Cancer: Father had lung cancer - There is no family history of prostate, colon, uterine, pancreatic, gastric, brain, renal cell or thyroid cancer. - There is no family history of melanoma, sarcoma or leukemia. Osteoporosis: None Stroke: None Blood Clot: None Heart attack: None Thyroid Nodule or Goiter: None Autism: None FAMILY HISTORY Problem Relation Age of Onset - Cancer Father - Lung Cancer [OTHER] Father Spread to liver and possibly brain - Nasal polyps [OTHER] Father Seasonal allergies - COPD Mother - Stroke Mother - Nasal polyps [OTHER] Mother Seasonal allergies - Seizures Brother - Breast Cancer Other paternal great aunt - Nasal polyps [OTHER] Brother Seasonal allergies MEDICATIONS: donepezil (ARICEPT) 10 mg tablet Take 1 tablet by mouth daily with breakfast. fluticasone (FLONASE) 50 mcg/actuation nasal spray Use 1-2 Sprays in each nostril once daily. Rinse mouth after use. albuterol HFA (PROAIR HFA) 90 mcg/actuation inhaler Inhale 2 Puffs as instructed every 4 hours as needed. predniSONE (DELTASONE) 5 mg tablet Take 5 mg by mouth once daily. pantoprazole DR (PROTONIX) 40 mg tablet Take 1 tablet by mouth twice daily. Multivitamin capsule Take 1 capsule by mouth once daily. folic acid 1 mg tablet 1 mg twice daily. methotrexate 2.5 mg tablet Four tablet once per week alendronate (FOSAMAX) 70 mg tablet once each week. DULoxetine (CYMBALTA) 60 mg capsule Take 1 capsule by mouth once daily. CPAP AutoPAP 5-15 cmH2O, suitable mask, humidity, filters. Lifetime supplies. Dx: G47.33 ibuprofen (ADVIL) 200 mg tablet Take 3 tablets by mouth twice daily. lidocaine viscous (LIDOCAINE VISCOUS) 2 % solution Take 5 mL by mouth as needed. May mix as directed to make BMX solution COMPOUNDED PRESCRIPTION Overnight pulse ox 6-8 weeks after CPAP set up per sleep study recommendationsDiagnoses: (G47.33, Z99.89) CRISTINA on CPAP; (G47.34) Nocturnal hypoxemia lactobac cmb #[id number] (PROBIOTIC AND ACIDOPHILUS) 300-250 million cell-mg cap Take 1 capsule by mouth twice daily. EPINEPHrine (EPIPEN) 0.3 mg/0.3 mL (1:1,000) auto-injector Inject 0.3 mg intramuscularly as needed. ALLERGIES: ALLERGIES Allergen Reactions - Tegretol [Carbamaze* Mental Status Change, GI Upset, Other: See Comments Decreased sodium, sore throat. (hyponatremia) - Bees Swelling - Codeine Intolerance Horrible side effects causing pancreatitis - Elavil [Amitriptyli* Swelling, Anaphylaxis - Prevacid [Lansopraz* GI Upset severe - Sodium Pentathol [O* Vomiting - Thiopental Sodium Vomiting - Adhesive Tape (Kim* Rash - Steristrips/Adhesiv* Rash REVIEW OF SYSTEMS: The patient specifically denies unintentional weight loss, insomnia, abnormal swelling in the arms or legs, chest pain, shortness of breath, cough, heartburn, urinary incontinence, vaginal dryness, decreased libido, unusual bony pains or severe headaches. She does report some hot flashes and night sweats. PHYSICAL EXAM: There were no vitals taken for this visit. BP 142/76 General: well-nourished, healthy, female, alert and oriented x 3, calm Skin: warm, dry, skin color, texture, turgor normal Head/Eyes: normocephalic, atraumatic and anicteric Breasts and Regional Lymph Nodes: The patient was examined in the upright and supine positions. There is no concerning supraclavicular, infraclavicular or axillary lymphadenopathy. The breasts are symmetrical in appearance without visible skin or nipple changes. There are no dominant breast masses on the right or nipple discharge bilaterally. The breasts were non-tender. There was mild fibrocystic change throughout. She is s/p bilateral partial mastectomy with no evidence of local recurrence on the right. On the left at 11pm 4cmfn there is a new focal area of increased density in the area of her prior scar. Chest - clear Cor - rrr, no m/r/g Abd - soft, no hepatomegaly IMAGING: Bilateral mammograms with left spot tangential performed today in the breast center were negative for malignancy. The breasts are heterogeneously dense which limits the sensitivity of mammography. There is a large coarse calcification on the left side in the area of clinical concern. Assessment IMPRESSION/PLAN: Richa Madden is a 67 year old year old female with Bilateral Fibrocystic Change, Dense Breasts and History of Bilateral Breast Cancer There is no evidence of malignancy. She was reassured as to the benign nature of her clinical and mammographic findings. MRI is not recommended per [facility] Care path after the age of 65. Genetics referral made: Not yet, BRCA mutations are most common and Medicare would not likely pay for [facility] gene panel update testing. If her son is interested in the information, we will readdress. Chemoprevention discussion: N/A ; she completed 5 years of endocrine therapy as part of her breast cancer treatment. The patient is advised to exercise regularly 30 min 5 x weekly, achieve/maintain ideal body weight, and to limit alcohol consumption to less than 7 drinks weekly for breast cancer risk reduction and overall health. She is reminded to schedule another colonoscopy. She will return in one year for annual exam. She will call me in the interim should she have any questions or concerns. Shreyas Galvan MD CC: Néstor Thompson MD [id number] [place] [address] CNOV Observed: 12/16/2017 Status: COMPLETED Source: [place] 2:00 PM [facility] REPOSITORY Office Visit (CRMN) RICHA MADDEN ([id number]) 1950 F Date Time Provider Department 12/16/17 2:00 PM SHREYAS GALVAN During your visit today, we recorded the following information about you: Pulse Blood pressure 83/minute 143/73 Kevin Ma, Mikie 12/16/2017 2:07 PM Signed BREAST CANCER SCREENING ? If you have remaining breast tissue, an annual screening mammogram and clinical breast exam by your breast provider is recommended. Option for mammography include digital mammograms and digital breast tomosynthesis. Single view mammograms are recommended if you have had a mastectomy with tissue flap reconstruction. Mammograms are not necessary if you have had a mastectomy with implant reconstruction.? Breast MRI is NOT ROUTINELY recommended for screening following a cancer diagnosis and is NOT recommended for women who have undergone bilateral mastectomy procedures unless otherwise clinically indicated. MRI is recommended for breast cancer survivors with remaining breast tissue who: ? ? Have a history if chest irradiation under the age of 30. ? Carry genetic mutations conferring increased cancer risk (BRCA1, BRCA2, PTEN, TP53, CDH1, STK11, PALB2, CHEK2, SAIDA) ? Per [facility] High Risk Care Path recommendations, screening breast MRI may be considered for women under the age of 65 with remaining breast tissue in the following situations: ? ? Patients who were under the age of 50 at the time of their breast cancer diagnosis ? Patients with mammographically dense tissue (BI-RADS category 3 or 4) ? Patients with a history of invasive lobular breast cancer ? GENETIC TESTING ? Approximately 10% of all breast cancers in the [place] are due to inherited genetic mutations. BRCA 1 and BRCA 2 are the most common genes associated with hereditary breast and ovarian cancer risk, but other genes known to increase breast cancer risk have also been identified. A certified genetic counselor can help decide if you are a candidate for testing, especially if ? ? your breast cancer was diagnosed prior to the age of 50 ? you had triple negative breast cancer ? you have a personal or family history of ovarian cancer ? you have a family member with a known genetic mutation ? you have a person or family history of male breast cancer ? you are of Ashkenazi Nondenominational descent ? HEALTHY LIFESTYLE MANAGEMENT (per NCCN Guidelines Version 1.2017 for Survivorship) ? ? All survivors should be encouraged to achieve and maintain a healthy lifestyle with attention to weight management, physical activity, and healthy dietary habits. ? Healthy Lifestyle habits have been associated with overall health and quality of life. For some cancers, a healthy lifestyle has been associated with a reduced risk of recurrence and . ? For a healthy lifestyle, all survivors should be encouraged to: ? ? Achieve and maintain a healthy body weight throughout life. ? Strive for at least 150 minutes of moderate or 75 minutes of vigorous activity per week. ? Maintain a healthy diet high in fruits, vegetables, and whole grains and low in red and processed meats, sugars, and fat in order to promote weight control and avoid obesity. ? Limit alcohol intake to less than one drink per day. ? Avoid tobacco products. ? Practice sun safety. ? Obtain 6-7 hours of sleep per night. ? Follow up with primary care physician regularly. ? WHEN TO CALL ? Tests may become necessary in some point of time. We encourage you to call with any new questions or concerns, particularly if your symptoms are worsening or have lasted longer than two weeks. Specifically, please report: ? ? breast or chest wall lumps, skin changes, swelling, or nipple discharge ? unexplained nausea or vomiting ? unexplained localized bone pain ? unexplained cough or shortness of breath ? unexplained swelling in your arm(s) ? unexplained and persistent headaches Breast Cancer Support and Resources Many resources are available in the community and offer an array of programs including support groups and community education programs. All of them have web sites you can access for additional information. These include but are not limited to: [facility] Comprehensive Breast Cancer Program - my.[email or web address]/veioxm-mywqgd-wmsaqfx [facility] - [facility].org [employer] - cancer.org [facility] [employer] [facility] - jdbcfoundation.org FORCE - facingourrisk.org [facility] [place] - brightpink.org Young Survival Coalition - youngsurvival.org 4th [facility] - 4thangel.org [facility] - touchedbycancer.org ([place]) [facility] - the[facility]orycenter.org ([place] area) [facility] - yellowbrickplace.org ([place] area) [facility] - stewartscaringplace.org ([place] area) If you would like to compliment one of our caregivers you encountered today, you may do so at [email or web address]. Thank you ! Mikie Brown Ma 12/16/2017 2:07 PM Signed Last mammogram on: 06/17/2017 Results: SEE REPORT Is the patient active on MyChart Yes Electronically Signed By: Mikie Brown Ma In Department: BREAST CENTER REVIEW OF PATIENT HISTORY: Obstetric History T0 L1 SAB0 TAB0 Ectopic0 Multiple0 Live Births0 Comment: Menarche 10, first live age 30. Breastfed. 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; would resolve with treatment - [facility] - Esophagitis, unspecified - Hair loss - History of Helicobacter pylori infection - Malignant neoplasm of breast (female), unspecified site Breast cancer - Malignant neoplasm of central portion of female breast (HCC) 06/2007 left lumpectomy with axillary dissection, right lumpectomy for DCIS - Memory loss 02/25/2016 - Mitral valve disorders(424.0) - Obstructive sleep apnea - Other specified disease of pancreas 06/23 anesthesia - Sacroiliitis (HCC) - Sinusitis - Viral meningitis - Viral meningitis PAST SURGICAL HISTORY Procedure Laterality Date - BREAST BIOPSY CORE 09/29/2012 right breast MRI guided - BRST BX STEREO LT VACCUUM ASSIST 04 Left - CERVIX UTERI CONIZA LP ELCTRO EXCI LEEP-Cervix - COLONOSCOP W/ OR W/O BRSH SPEC 2010 Colonoscopy - EGD W/O BRSH SPECIMEN W/BX 12/25/2007849 - EGD W/O OR W/BRUSH/WASH 01/06/13 EGD - EGD W/O OR W/BRUSH/WASH 05/01/2014 EGD - EXCIS BREAST LES W XRAY MARKER Right 08/25/2017 Dr. Traore rt needle loc breast bx - LAPAROSCOPIC CHOLEYCYSTECTOMY Cholecystectomy, lap - LEFT HEART CATH,PERCUTANEOUS Cardiac cath, L heart - MASTEC PARTIAL W AXILL NODE REMOV 06-25-07 Right NL PM/AXD - MASTECTOMY PARTIAL 11/10/07 Right Re-Ex PM - PAST SURGICAL HISTORY OF Surgery for endometriosis - PAST SURGICAL HISTORY OF Neuroma left foot - PAST SURGICAL HISTORY OF 2013 hysterectomy (Dr. Campbell) - STEREOTACTIC CORE BIOPSY 05/05/07 LEFT - US BREAST NEEDLE CORE BIOPSY RT 03/31/2014 right breast - VACUUM ASSISTED BREAST BIOPSY 09/15/2012 MRI guided right breast Social History Marital status: Spouse name: Years of education: Number of children: 1 Occupational History Occupation Employer Comment Retired [employer] Social History Main Topics Smoking status: Never Smoker Smokeless tobacco: Never Used Alcohol use: No Shreyas Galvan 12/18/2017 10:15 AM Signed MEDICAL BREAST HISTORY of PRESENT ILLNESS: Richa Madden is a 67 year old year old 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 The patient denies any breast masses, pain, skin changes, or nipple discharge. In 05/23 she had a right core biopsy showing low grade DCIS which was ER+(80%)/NE+(80%). In 06/23 she had bilateral partial mastectomies per Dr. Lopez showing grade 2 DCIS on the right and a 1.8 cm IDC on the left which was ER+(90%)/NE-/HER2-. She had 0/2 SLN on the left and 0/3LN. She received chemotherapy per Dr. Farhat Zhou: Following the 1st cycle of docetaxel and cyclophosphamide she developed acute pancreatitis on day 3 of therapy. She was hospitalized for approximately 1 week at [facility]. A CT scan and MRI showed no significant abnormalities. Chemotherapy was changed to AC to avoid corticosteroids which may have contributed to the acute pancreatitis. Completed 3 cycles AC (last 10/15/07; no dose delays or reductions). She then completed bilateral whole breast irradiation and nearly completed 5 years (short 3 months) of AI therapy due to arthralgias. She has had memory issues. On her screening mammogram 06/17/17, a 1.4cm spiculated mass was seen in the right upper outer breast at 10pm 4cmfn. Core biopsy and excision were benign. Her vitamin D level was Vitamin D 25 Hydroxy (ng/mL) Date Value 04/25/2017 65.5 . She takes Ca/D once daily plus 2000U of D. BMD: Yes / 06/26 osteopenia -1.3 ; on Fosomax in past PERSONAL BREAST HISTORY: Past breast history (prior to this encounter) is as follows: Breast biopsy: Yes, in addition to the above bilateral biopsies, she has had the followin/08 right core biopsy benign 10/22 right excisional biopsy showing ADH/UDH 08/29 right MRI guided biopsy showing adenosis 03/30 right core biopsy showing fibrosis 04/02 right core biopsy - benign (discordant; excised) Breast cysts: No Breast surgery: Yes, bilateral partial mastectomies 06/23 as above and right excisional biopsy 10/22; 09/[address] Traore which was benign. Breast cancer: Yes, Right Stage 0 ER+ DCIS 2006treated with breast conservation and 5y AI Left Stage 1 IDC ER+/HER2- cancer 2006 treated with breast conservation, chemotherapy and 5 years of endocrine therapy CANCER SURVEILLANCE: Mammograms: Yes / 05/02 negative Breast MRI: Yes / last in 08/29 prompting the MRI guided biopsy Colonoscopy: Yes / [address] Bo Abernathy at [place] per pt report RISK FACTORS FOR BREAST CANCER: Age at the onset of menses: 14 years of age. P: 1 Age at the of first child: 30 years of age. She breast fed Age at menopause: 49 years of age. Post-menopausal hormone therapy: Yes, she did take combined HT until her diagnosis She is S/P total hysterectomy with negative pathology (had uterine prolapse) History of Mantle Radiation prior to the age of 30: No Postmenopausal obesity: Yes, she is 5'4 and weighs 180 pounds There is no height or weight on file to calculate BMI. 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; would resolve with treatment - Coccydynia pain management at [facility] - Esophagitis, unspecified - Hair loss - History of Helicobacter pylori infection - Malignant neoplasm of breast (female), unspecified site Breast cancer - Malignant neoplasm of central portion of female breast (HCC) 06/2007 left lumpectomy with axillary dissection, right lumpectomy for DCIS - Memory loss 02/25/2016 - Mitral valve disorders(424.0) - Obstructive sleep apnea - Other specified disease of pancreas 06/23 anesthesia - Sacroiliitis (HCC) - Sinusitis - Viral meningitis - Viral meningitis Patient specifically denies history of: DVT, PE, Migraine headaches, Abnormal uterine bleeding , Abnormal uterine biopsies , Osteopenia and Osteoporosis. PAST SURGICAL HISTORY: PAST SURGICAL HISTORY Procedure Laterality Date - BREAST BIOPSY CORE 09/29/2012 right breast MRI guided - BRST BX STEREO LT VACCUUM ASSIST 04 Left - CERVIX UTERI CONIZA LP ELCTRO EXCI LEEP-Cervix - COLONOSCOP W/ OR W/O BRSH SPEC 2010 Colonoscopy - EGD W/O BRSH SPECIMEN W/BX [id number] - EGD W/O OR W/BRUSH/WASH 01/06/13 EGD - EGD W/O OR W/BRUSH/WASH 05/01/2014 EGD - EXCIS BREAST LES W XRAY MARKER Right 08/25/2017 Dr. Traore rt needle loc breast bx - LAPAROSCOPIC CHOLEYCYSTECTOMY Cholecystectomy, lap - LEFT HEART CATH,PERCUTANEOUS Cardiac cath, L heart - MASTEC PARTIAL W AXILL NODE REMOV 06-25-07 Right NL PM/AXD - MASTECTOMY PARTIAL 11/10/07 Right Re-Ex PM - PAST SURGICAL HISTORY OF Surgery for endometriosis - PAST SURGICAL HISTORY OF Neuroma left foot - PAST SURGICAL HISTORY OF 2013 hysterectomy (Dr. Campbell) - STEREOTACTIC CORE BIOPSY 05/05/07 LEFT - US BREAST NEEDLE CORE BIOPSY RT 03/31/2014 right breast - VACUUM ASSISTED BREAST BIOPSY 09/15/2012 MRI guided right breast SOCIAL HISTORY: Social History Substance Use Topics - Smoking status: Never Smoker - Smokeless tobacco: Never Used - Alcohol use No Caffeine intake: occ Exercise: Never FAMILY HISTORY: Family history of breast cancer: None Family history of ovarian cancer: None Number of sisters: 2 Number of maternal aunts: 1 Number of paternal aunts: 2 Ashkenazi Ancestry: no Has Patient had Genetic Testing? Yes, negative BRCA testing per her report Have any Family Members had Genetic Testing? No Other Cancer: Father had lung cancer - There is no family history of prostate, colon, uterine, pancreatic, gastric, brain, renal cell or thyroid cancer. - There is no family history of melanoma, sarcoma or leukemia. Osteoporosis: None Stroke: None Blood Clot: None Heart attack: None Thyroid Nodule or Goiter: None Autism: None FAMILY HISTORY Problem Relation Age of Onset - Cancer Father - Lung Cancer [OTHER] Father Spread to liver and possibly brain - Nasal polyps [OTHER] Father Seasonal allergies - COPD Mother - Stroke Mother - Nasal polyps [OTHER] Mother Seasonal allergies - Seizures Brother - Breast Cancer Other paternal great aunt - Nasal polyps [OTHER] Brother Seasonal allergies MEDICATIONS: donepezil (ARICEPT) 10 mg tablet Take 1 tablet by mouth daily with breakfast. fluticasone (FLONASE) 50 mcg/actuation nasal spray Use 1-2 Sprays in each nostril once daily. Rinse mouth after use. albuterol HFA (PROAIR HFA) 90 mcg/actuation inhaler Inhale 2 Puffs as instructed every 4 hours as needed. predniSONE (DELTASONE) 5 mg tablet Take 5 mg by mouth once daily. pantoprazole DR (PROTONIX) 40 mg tablet Take 1 tablet by mouth twice daily. Multivitamin capsule Take 1 capsule by mouth once daily. folic acid 1 mg tablet 1 mg twice daily. methotrexate 2.5 mg tablet Four tablet once per week alendronate (FOSAMAX) 70 mg tablet once each week. DULoxetine (CYMBALTA) 60 mg capsule Take 1 capsule by mouth once daily. CPAP AutoPAP 5-15 cmH2O, suitable mask, humidity, filters. Lifetime supplies. Dx: G47.33 ibuprofen (ADVIL) 200 mg tablet Take 3 tablets by mouth twice daily. lidocaine viscous (LIDOCAINE VISCOUS) 2 % solution Take 5 mL by mouth as needed. May mix as directed to make BMX solution COMPOUNDED PRESCRIPTION Overnight pulse ox 6-8 weeks after CPAP set up per sleep study recommendationsDiagnoses: (G47.33, Z99.89) CRISTINA on CPAP; (G47.34) Nocturnal hypoxemia lactobac cmb #[id number] (PROBIOTIC AND ACIDOPHILUS) 300-250 million cell-mg cap Take 1 capsule by mouth twice daily. EPINEPHrine (EPIPEN) 0.3 mg/0.3 mL (1:1,000) auto-injector Inject 0.3 mg intramuscularly as needed. ALLERGIES: ALLERGIES Allergen Reactions - Tegretol [Carbamaze* Mental Status Change, GI Upset, Other: See Comments Decreased sodium, sore throat. (hyponatremia) - Bees Swelling - Codeine Intolerance Horrible side effects causing pancreatitis - Elavil [Amitriptyli* Swelling, Anaphylaxis - Prevacid [Lansopraz* GI Upset severe - Sodium Pentathol [O* Vomiting - Thiopental Sodium Vomiting - Adhesive Tape (Kim* Rash - Steristrips/Adhesiv* Rash REVIEW OF SYSTEMS: The patient specifically denies unintentional weight loss, insomnia, abnormal swelling in the arms or legs, chest pain, shortness of breath, cough, heartburn, urinary incontinence, vaginal dryness, decreased libido, unusual bony pains or severe headaches. She does report some hot flashes and night sweats. PHYSICAL EXAM: There were no vitals taken for this visit. BP 142/76 General: well-nourished, healthy, female, alert and oriented x 3, calm Skin: warm, dry, skin color, texture, turgor normal Head/Eyes: normocephalic, atraumatic and anicteric Breasts and Regional Lymph Nodes: The patient was examined in the upright and supine positions. There is no concerning supraclavicular, infraclavicular or axillary lymphadenopathy. The breasts are symmetrical in appearance without visible skin or nipple changes. There are no dominant breast masses on the right or nipple discharge bilaterally. The breasts were non- tender. There was mild fibrocystic change throughout. She is s/p bilateral partial mastectomy with no evidence of local recurrence on the right. On the left at 11pm 4cmfn there is a new focal area of increased density in the area of her prior scar. Chest - clear Cor - rrr, no m/r/g Abd - soft, no hepatomegaly IMAGING: Bilateral mammograms with left spot tangential performed today in the breast center were negative for malignancy. The breasts are heterogeneously dense which limits the sensitivity of mammography. There is a large coarse calcification on the left side in the area of clinical concern. Assessment IMPRESSION/PLAN: Richa Madden is a 67 year old year old female with Bilateral Fibrocystic Change, Dense Breasts and History of Bilateral Breast Cancer There is no evidence of malignancy. She was reassured as to the benign nature of her clinical and mammographic findings. MRI is not recommended per [facility] Care path after the age of 65. Genetics referral made: Not yet, BRCA mutations are most common and Medicare would not likely pay for Jennifer gene panel update testing. If her son is interested in the information, we will readdress. Chemoprevention discussion: N/A ; she completed 5 years of endocrine therapy as part of her breast cancer treatment. The patient is advised to exercise regularly 30 min 5 x weekly, achieve/maintain ideal body weight, and to limit alcohol consumption to less than 7 drinks weekly for breast cancer risk reduction and overall health. She is reminded to schedule another colonoscopy. She will return in one year for annual exam. She will call me in the interim should she have any questions or concerns. Shreyas Galvan MD CC: Néstor Thompson MD [id number] [place] [address] Referring Provider: SELF [[id number]] Allergies As of Date: 12/16/2017 Noted Allergy Reaction TEGRETOL (CARBAMAZEPINE) 03/02/2012 1 - Mental Status Change 8 - GI Upset 14 - Other: See Comments Comments: Decreased sodium, sore throat. (hyponatremia) BEES 03/31/2014 7 - Swelling CODEINE 07/12/2007 5 - Intolerance Comments: Horrible side effects causing pancreatitis ELAVIL (AMITRIPTYLINE) 09/09/2011 7 - Swelling 10 - Anaphylaxis PREVACID (LANSOPRAZOLE) 01/13/2012 8 - GI Upset Comments: severe sodium pentathol [Other] 09/19/2005 11 - Vomiting THIOPENTAL SODIUM 06/25/2007 11 - Vomiting ADHESIVE TAPE (ROSINS) 06/25/2007 2 - Rash steristrips/adhesive [Other] 06/24/2007 2 - Rash Date Reviewed: 12/16/2017 Reviewed by: Mikie Brown Ma - Fully Assessed Reason for Visit: 6 Month Exam With Mammogram [190] Primary Visit Diagnosis:Bilateral fibrocystic breast changes [N60.11, N60.12] Other Visit Diagnoses:Dense breasts [R92.2] Personal history of breast cancer [Z85.3] Encounter for screening mammogram for malignant neoplasm of breast [Z12.31] Lump of left breast [N63.20] Order(s):[facility] SCREENING [facility] [[id number]] Order #: [id number] FUTURE BREAST LTD LT [[id number]] Order #: [id number] FUTURE [facility] DIAGNOSTIC BILAT [[id number]] Order #: [id number] FUTURE Prescriptions as of 12/16/2017 Sig: CHOLECALCIFEROL (VITAMIN D3) * Take by mouth once daily. CALCIUM 600 WITH VITAMIN D OR* Take by mouth once daily. DONEPEZIL 10 MG TABLET Take 1 tablet by mouth daily * FLUTICASONE 50 MCG/ACTUATION * Use 1-2 Sprays in each nostri* ALBUTEROL SULFATE HFA 90 MCG/* Inhale 2 Puffs as instructed * PANTOPRAZOLE 40 MG TABLET,DEL* Take 1 tablet by mouth twice * MULTIVITAMIN CAPSULE Take 1 capsule by mouth once * FOLIC ACID 1 MG TABLET 1 mg twice daily. METHOTREXATE SODIUM 2.5 MG TA* 6 tablets once per week DULOXETINE 60 MG CAPSULE,PAULINA* Take 1 capsule by mouth once * CPAP AutoPAP 5-15 cmH2O, suitable * COMPOUNDED PRESCRIPTION Overnight pulse ox 6-8 weeks * LACTOBACILLUS COMB NO.3-FOS-P* Take 1 capsule by mouth twice* EPINEPHRINE 0.3 MG/0.3 ML INJ* Inject 0.3 mg intramuscularly* Problem List As Of Date 12/16/2017 Noted Resolved INFECTIOUS ENTERITIS NOS [A09] INVALID FOR* MALIG NEOPLASM BREAST-CENTRAL [C50.119] INVALID FOR* MALIGN NEOPL BREAST NOS [C50.919] INVALID FOR* Abdominal pain, generalized [R10.84] INVALID FOR*08/07/2017 Acute pancreatitis [K85.90] INVALID FOR*08/07/2017 Drug induced neutropenia(288.03) [D70.2] INVALID FOR*08/20/2017 CA IN SITU BREAST [D05.90] INVALID FOR* PERS HX OF BREAST MALIGNANCY [Z85.3] INVALID FOR* Hyperlipidemia [E78.5] INVALID FOR* OVERWEIGHT [E66.9] INVALID FOR* Vitamin D Deficiency [E55.9] INVALID FOR* Mastitis [N61.0] INVALID FOR* GERD (Gastroesophageal Reflux Disease) [K21.9] INVALID FOR* Coccydynia [M53.3] 08/07/2017 Sacroiliitis [M46.1] White matter abnormality on MRI of brain [R93.0]INVALID FOR* More... Acute gastritis without mention of hemorrhage [*INVALID FOR* Esophagitis, unspecified [K20.9] INVALID FOR* Sleep apnea [G47.30] INVALID FOR*12/30/2015 More... UTI (lower urinary tract infection) [N39.0] INVALID FOR* More... LPRD (laryngopharyngeal reflux disease) [K21.9] INVALID FOR* Obstructive sleep apnea [G47.33] Memory loss [R41.3] INVALID FOR* Facial pain [R51] INVALID FOR* Bilateral fibrocystic breast changes [N60.11, N*INVALID FOR* Dense breasts [R92.2] INVALID FOR* Personal history of breast cancer [Z85.3] INVALID FOR* Examination of participant in clinical trial [Z*INVALID FOR* More... 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 If you have remaining breast tissue, an annual screening mammogram and clinical breast exam by your breast provider is recommended. Option for mammography include digital mammograms and digital breast tomosynthesis. Single view mammograms are recommended if you have had a mastectomy with tissue flap reconstruction. Mammograms are not necessary if you have had a mastectomy with implant reconstruction.? Breast MRI is NOT ROUTINELY recommended for screening following a cancer diagnosis and is NOT recommended for women who have undergone bilateral mastectomy procedures unless otherwise clinically indicated. MRI is recommended for breast cancer survivors with remaining breast tissue who: ? ? Have a history if chest irradiation under the age of 30. ? Carry genetic mutations conferring increased cancer risk (BRCA1, BRCA2, PTEN, TP53, CDH1, STK11, PALB2, CHEK2, SAIDA) ? Per [facility] High Risk Care Path recommendations, screening breast MRI may be considered for women under the age of 65 with remaining breast tissue in the following situations: ? ? Patients who were under the age of 50 at the time of their breast cancer diagnosis ? Patients with mammographically dense tissue (BI-RADS category 3 or 4) ? Patients with a history of invasive lobular breast cancer ? GENETIC TESTING ? Approximately 10% of all breast cancers in the [place] are due to inherited genetic mutations. BRCA 1 and BRCA 2 are the most common genes associated with hereditary breast and ovarian cancer risk, but other genes known to increase breast cancer risk have also been identified. A certified genetic counselor can help decide if you are a candidate for testing, especially if ? ? your breast cancer was diagnosed prior to the age of 50 ? you had triple negative breast cancer ? you have a personal or family history of ovarian cancer ? you have a family member with a known genetic mutation ? you have a person or family history of male breast cancer ? you are of Ashkenazi Nondenominational descent ? HEALTHY LIFESTYLE MANAGEMENT (per NCCN Guidelines Version 1.2017 for Survivorship) ? ? All survivors should be encouraged to achieve and maintain a healthy lifestyle with attention to weight management, physical activity, and healthy dietary habits. ? Healthy Lifestyle habits have been associated with overall health and quality of life. For some cancers, a healthy lifestyle has been associated with a reduced risk of recurrence and . ? For a healthy lifestyle, all survivors should be encouraged to: ? ? Achieve and maintain a healthy body weight throughout life. ? Strive for at least 150 minutes of moderate or 75 minutes of vigorous activity per week. ? Maintain a healthy diet high in fruits, vegetables, and whole grains and low in red and processed meats, sugars, and fat in order to promote weight control and avoid obesity. ? Limit alcohol intake to less than one drink per day. ? Avoid tobacco products. ? Practice sun safety. ? Obtain 6-7 hours of sleep per night. ? Follow up with primary care physician regularly. ? WHEN TO CALL ? Tests may become necessary in some point of time. We encourage you to call with any new questions or concerns, particularly if your symptoms are worsening or have lasted longer than two weeks. Specifically, please report: ? ? breast or chest wall lumps, skin changes, swelling, or nipple discharge ? unexplained nausea or vomiting ? unexplained localized bone pain ? unexplained cough or shortness of breath ? unexplained swelling in your arm(s) ? unexplained and persistent headaches Breast Cancer Support and Resources Many resources are available in the community and offer an array of programs including support groups and community education programs. All of them have web sites you can access for additional information. These include but are not limited to: [facility] Comprehensive Breast Cancer Program - my.[facility].org/services/nrhubi-nzulrm-qfjciik [facility] - komarybethneITM Softwareio.org [employer] [employer] - cancer.org JANNETTE [employer]ations - jdbcfoundation.org FORCE - facingourrisk.org [place] - brightpink.org Young Survival Coalition - youngsurvival.org 4th Nicola - 4thangel.org [facility] - touchedbycancer.org ([place] and [place]) [facility] - thePureSignCoer.org ([place] area) [facility] - yellowbrickplace.org ([place] area) [facility] - stewartscaringplace.org ([place] area) If you would like to compliment one of our caregivers you encountered today, you may do so at www.[email or web address] IQ (Social Influence Quotient). Thank you ! Visit Notes: >> Mikie Brown Ma December 16, 2017 2:07 PM Status: Signed Last mammogram on: 06/17/2017 Results: SEE REPORT Is the patient active on DHgatehart Yes Electronically Signed By: Mikie Brown Ma In Department: BREAST CENTER REVIEW OF PATIENT HISTORY: Obstetric History T0 L1 SAB0 TAB0 Ectopic0 Multiple0 Live Births0 Comment: Menarche 10, first live age 30. Breastfed. 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; would resolve with treatment - [facility] - Esophagitis, unspecified - Hair loss - History of Helicobacter pylori infection - Malignant neoplasm of breast (female), unspecified site Breast cancer - Malignant neoplasm of central portion of female breast (HCC) 06/2007 left lumpectomy with axillary dissection, right lumpectomy for DCIS - Memory loss 02/25/2016 - Mitral valve disorders(424.0) - Obstructive sleep apnea - Other specified disease of pancreas 06/23 anesthesia - Sacroiliitis (HCC) - Sinusitis - Viral meningitis - Viral meningitis PAST SURGICAL HISTORY Procedure Laterality Date - BREAST BIOPSY CORE 09/29/2012 right breast MRI guided - BRST BX STEREO LT VACCUUM ASSIST 04 Left - CERVIX UTERI CONIZA LP ELCTRO EXCI LEEP-Cervix - COLONOSCOP W/ OR W/O BRSH SPEC 2010 Colonoscopy - EGD W/O BRSH SPECIMEN W/BX [id number] - EGD W/O OR W/BRUSH/WASH 01/06/13 EGD - EGD W/O OR W/BRUSH/WASH 05/01/2014 EGD - EXCIS BREAST LES W XRAY MARKER Right 08/25/2017 Dr. Traore rt needle loc breast bx - LAPAROSCOPIC CHOLEYCYSTECTOMY Cholecystectomy, lap - LEFT HEART CATH,PERCUTANEOUS Cardiac cath, L heart - MASTEC PARTIAL W AXILL NODE REMOV 06-25-07 Right NL PM/AXD - MASTECTOMY PARTIAL 11/10/07 Right Re-Ex PM - PAST SURGICAL HISTORY OF Surgery for endometriosis - PAST SURGICAL HISTORY OF Neuroma left foot - PAST SURGICAL HISTORY OF 2013 hysterectomy (Dr. Campbell) - STEREOTACTIC CORE BIOPSY 05/05/07 LEFT - US BREAST NEEDLE CORE BIOPSY RT 03/31/2014 right breast - VACUUM ASSISTED BREAST BIOPSY 09/15/2012 MRI guided right breast Social History Marital status: Spouse name: Years of education: Number of children: 1 Occupational History Occupation Employer Comment Retired [employer] Social History Main Topics Smoking status: Never Smoker Smokeless tobacco: Never Used Alcohol use: No Medications Discontinued During This Encounter alendronate (FOSAMAX) 70 mg tablet 05/25/2017 12/16/2017 Class: Historical Med Sig: once each week. Disc: Reason for discontinue is not on file. ibuprofen (ADVIL) 200 mg tablet 04/14/2017 12/16/2017 Class: OTC Route: ORAL Sig: Take 3 tablets by mouth twice daily. Patient not taking: Reported on 12/16/2017 Disc: Reason for discontinue is not on file. lidocaine viscous (LIDOCAINE VISCOUS* 240 * 1 01/29/2017 12/16/2017 Cmt: This prescription was filled on 01/27/2017. Any refills authorized will be placed on file. Sig: Take 5 mL by mouth as needed. May mix as directed to make BMX solution Patient not taking: Reported on 12/16/2017 Disc: Reason for discontinue is not on file. predniSONE (DELTASONE) 5 mg tablet 12/16/2017 Class: Historical Med Route: ORAL Sig: Take 5 mg by mouth once daily. Disc: Reason for discontinue is not on file. Follow-up and Disposition History Recorded Encounter Status:Closed by SHREYAS GALVAN on 12/18/17 CBC W/DIFF, AUTOMATED Collected: 11/09/2017 Status: F Source: [place] 11:14 AM [facility] [place] TYPE CODE TESTS RESULT OUT OF RANGE REFERENCE UNITS LAB L100.1000 4.4-11.0 K/mm3 Normal WBC 4.5 LAB L100.1200 4.2-5.4 M/mm3 Normal RBC 4.31 LAB L100.1300 12.0-15.0 g/dl Normal HGB 14.0 LAB L100.1400 37-47 % Normal HCT 41.4 LAB L100.1500 81-99 fL Normal MCV 96.1 LAB L100.1600 27.0-32.0 pg High MCH 32.5 LAB L100.1700 32-36 g/gl Normal MCHC 33.8 LAB L100.1810 11.6-14.6 % Normal RDW CV 12.8 LAB L100.1820 35.1-43.9 fl Normal RDW SD 43.6 LAB L100.1900 150-450 K/mm3 Normal PLT 248 LAB L100.2000 6.2-12.0 fl Normal MPV 9.6 LAB L100.2100 47-70 % Normal NEUT% 53.9 LAB L100.2200 19-41 % Normal LY% 31.3 LAB L100.2300 0-10 % Normal MONO% 9.6 LAB L100.2400 0-5 % Normal EO% 4.5 LAB L100.2500 0-1 % Normal BASO% 0.7 LAB L100.2550 0.0-0.9 % Normal IM GRAN % 0.000 Result Comment: IG% - Immature Granulocytes (promyelocytes, myelocytes and metamyelocytes) > 1% indicates that a LEFT SHIFT is Present. LAB L100.2620 2.0-7.7 X10 3/uL Normal Absolute Neut 2.4 LAB L100.2720 0.83-4.51 X10 3/ul Normal Absolute Lymph 1.40 Performed By: #### L100.0100 #### [facility] [address] [place], [address] COMPREHENSIVE METABOLIC Collected: 11/09/2017 Status: F Source: [place] 11:14 AM [facility] [place] TYPE CODE TESTS RESULT OUT OF RANGE REFERENCE UNITS LAB L501.0100 74-106 mg/dL Normal GLU 84 Result Comment: Please note revised GLUCOSE reference range effective 2017. LAB L501.1000 7-18 mg/dL Normal BUN 14 LAB L501.1100 0.55-1.02 mg/dL Normal CREAT,SERUM 0.69 Result Comment: The validity of the calculated GFR AND GFRAA in patients over 70 years has not been determined. Clinical correlation is essential. LAB L501.1110 >60 mL/min Normal EST GFR 90 Result Comment: Non- GFR Calc LAB L501.1115 >60 mL/min Normal EST GFR - AA 109 Result Comment: GFR Calc LAB L501.1300 10-20 RATIO High BUN/CRE 20.4 LAB L501.1500 6.4-8.2 g/dL T Normal PROT 7.1 LAB L501.1800 3.2-5.0 g/dL Normal ALB 3.7 LAB L501.1950 2.2-4.2 g/dL Normal GLOB 3.4 LAB L501.2000 0.9-2.4 RATIO Normal A/G 1.1 LAB L501.2200 8.5-10.1 mg/dL CA Normal 8.8 LAB L501.4100 15-37 U/L Normal AST 20 LAB L501.4305 45-117 U/L Normal ALK P 61 LAB L501.4405 13-56 U/L Normal ALT 35 Result Comment: Please note revised ALT reference range effective 2017. LAB L501.4600 0.20-1.00 mg/dL Normal T BILI 0.70 LAB L501.5300 136-145 mmol/L Normal NA 141 LAB L501.5600 3.5-5.1 mmol/L Normal K 4.2 LAB L501.5900 98-107 mmol/L Normal CL 106 LAB L501.6100 21.0-32.0 mmol/L Normal CO2 30.0 LAB L501.6200 5-15 Normal GAP 5 Performed By: #### L500.4050 #### [facility] [address] [place], [address] PROGRESS Observed: 09/07/2017 Status: COMPLETED Source: [place] 1:59 PM [facility] REPOSITORY HNO ID: [id number] Author: Nicolasa Traore Service: (none) Author Type: Physician Type: Progress Notes Filed: 09/07/2017 2:00 PM Note Text: PATIENT: RICHA MADDEN DATE: 09/07/2017 HISTORY AND CHIEF COMPLAINT: Richa Madden is a 67 year old female status post excisional biopsy right breast The pathology showed sclerosing adenosis. PHYSICAL EXAMINATION: Richa Madden is a 67 year old female in no acute distress, alert and oriented x 3. Inc: clean, dry, intact IMPRESSION: Status post excisional biopsy right breast PLAN: Six month right breast diagnostic mammogram Dictated by: Nicolasa Traore MD 09/07/2017 CNOV Observed: 09/07/2017 Status: COMPLETED Source: [place] 1:00 PM [facility] REPOSITORY Office Visit ([facility]) RICHA MADDEN ([id number]) 1950 F Date Time Provider Department 09/07/17 1:00 PM [facility] During your visit today, we recorded the following information about you: Pulse Blood pressure Weight 70/minute 152/68 83 kg Kayleigh Dacosta LPN, DUANE 09/07/2017 12:52 PM Signed Post op Did patient bring outside records to appt today? : No Last mammogram on: 06/17/2017 bilateral Results: see report Coping: On a scale of 0-10 please indicate the number that best describes your level of distress on the average over the past week. 0/10 Referred to social work: No Is the patient active on MyChart Yes Electronically Signed By: Kayleigh Dacosta LPN In Department: [facility] REVIEW OF PATIENT HISTORY: Obstetric History T0 L1 SAB0 TAB0 Ectopic0 Multiple0 Live Births0 Comment: Menarche 10, first live age 30. Breastfed. 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; would resolve with treatment - [facility] - Esophagitis, unspecified - Hair loss - History of Helicobacter pylori infection - Malignant neoplasm of breast (female), unspecified site Breast cancer - Malignant neoplasm of central portion of female breast (HCC) 06/2007 left lumpectomy with axillary dissection, right lumpectomy for DCIS - Memory loss 02/25/2016 - Mitral valve disorders(424.0) - Obstructive sleep apnea - Other specified disease of pancreas 06/23 anesthesia - Sacroiliitis (HCC) - Sinusitis - Viral meningitis - Viral meningitis PAST SURGICAL HISTORY Procedure Laterality Date - BREAST BIOPSY CORE 09/29/2012 right breast MRI guided - BRST BX STEREO LT VACCUUM ASSIST 04 Left - CERVIX UTERI CONIZA LP ELCTRO EXCI LEEP-Cervix - COLONOSCOP W/ OR W/O BRSH SPEC 2010 Colonoscopy - EGD W/O BRSH SPECIMEN W/BX 12/25/6143995 - EGD W/O OR W/BRUSH/WASH 01/06/13 EGD - EGD W/O OR W/BRUSH/WASH 05/01/2014 EGD - EXCIS BREAST LES W XRAY MARKER Right 08/25/2017 Dr. Traore rt needle loc breast bx - LAPAROSCOPIC CHOLEYCYSTECTOMY Cholecystectomy, lap - LEFT HEART CATH,PERCUTANEOUS Cardiac cath, L heart - MASTEC PARTIAL W AXILL NODE REMOV 06-25-07 Right NL PM/AXD - MASTECTOMY PARTIAL 11/10/07 Right Re-Ex PM - PAST SURGICAL HISTORY OF Surgery for endometriosis - PAST SURGICAL HISTORY OF Neuroma left foot - PAST SURGICAL HISTORY OF 2013 hysterectomy (Dr. Campbell) - STEREOTACTIC CORE BIOPSY 05/05/07 LEFT - US BREAST NEEDLE CORE BIOPSY RT 03/31/2014 right breast - VACUUM ASSISTED BREAST BIOPSY 09/15/2012 MRI guided right breast Social History Marital status: Spouse name: Years of education: Number of children: 1 Occupational History Occupation Employer Comment Retired [employer] Social History Main Topics Smoking status: Never Smoker Smokeless status: Never Used Alcohol use: No Madina Corbin RN 09/07/2017 12:55 PM Signed The patient is identified by name and date of . Richa Madden presents today for a postoperative visit. She is status post a right breast excisional biopsy. Patient is afebrile today. Incision examined. Wound clean and dry., No redness, warmth, pain or drainage at surgical site. No sign of infection. and Normal healing. Skin edges clean and fully approximated. Patient instructed on: Signs of infection (redness, warmth, pain, and drainage) at surgical site. She stated understanding of all information received today. Patient to notify the office with any new concerns. After visit summary given to Richa Nakia Traore MD 09/07/2017 2:00 PM Signed PATIENT: RICHA MADDEN DATE: 09/07/2017 HISTORY AND CHIEF COMPLAINT: Richa Madden is a 67 year old female status post excisional biopsy right breast The pathology showed sclerosing adenosis. PHYSICAL EXAMINATION: Richa Madden is a 67 year old female in no acute distress, alert and oriented x 3. Inc: clean, dry, intact IMPRESSION: Status post excisional biopsy right breast PLAN: Six month right breast diagnostic mammogram Dictated by: Nicolasa Traore MD 09/07/2017 Referring Provider: NICOLASA TRAORE [[id number]] Allergies As of Date: 09/07/2017 Noted Allergy Reaction TEGRETOL (CARBAMAZEPINE) 03/02/2012 1 - Mental Status Change 8 - GI Upset 14 - Other: See Comments Comments: Decreased sodium, sore throat. (hyponatremia) BEES 03/31/2014 7 - Swelling CODEINE 07/12/2007 5 - Intolerance Comments: Horrible side effects causing pancreatitis ELAVIL (AMITRIPTYLINE) 09/09/2011 7 - Swelling 10 - Anaphylaxis PREVACID (LANSOPRAZOLE) 01/13/2012 8 - GI Upset Comments: severe THIOPENTAL SODIUM 06/25/2007 11 - Vomiting sodium pentathol [Other] 09/19/2005 11 - Vomiting ADHESIVE TAPE (ROSINS) 06/25/2007 2 - Rash steristrips/adhesive [Other] 06/24/2007 2 - Rash Date Reviewed: 09/07/2017 Reviewed by: Kayleigh Dacosta LPN, DUANE - Fully Assessed Reason for Visit: Post Op [174] Primary Visit Diagnosis:Bilateral fibrocystic breast changes [N60.11, N60.12] Other Visit Diagnosis:Personal history of breast cancer [Z85.3] Order(s):[facility] RT [[id number]] Order #: [id number] FUTURE Prescriptions as of 09/07/2017 Sig: ALBUTEROL SULFATE HFA 90 MCG/* Inhale 2 Puffs as instructed * PREDNISONE 5 MG TABLET Take 5 mg by mouth once daily. FLUTICASONE 50 MCG/ACTUATION * Use 1-2 Sprays in each nostri* PANTOPRAZOLE 40 MG TABLET,DEL* Take 1 tablet by mouth twice * DONEPEZIL 10 MG TABLET Take 1 tablet by mouth daily * FOLIC ACID 1 MG TABLET 1 mg twice daily. ALENDRONATE 70 MG TABLET once each week. DULOXETINE 60 MG CAPSULE,PAULINA* Take 1 capsule by mouth once * CPAP AutoPAP 5-15 cmH2O, suitable * IBUPROFEN 200 MG TABLET Take 3 tablets by mouth twice* COMPOUNDED PRESCRIPTION Overnight pulse ox 6-8 weeks * LACTOBACILLUS COMB NO.3-FOS-P* Take 1 capsule by mouth twice* EPINEPHRINE 0.3 MG/0.3 ML INJ* Inject 0.3 mg intramuscularly* MULTIVITAMIN CAPSULE Take 1 capsule by mouth once * METHOTREXATE SODIUM 2.5 MG TA* Four tablet once per week LIDOCAINE 2 % MUCOSAL SOLUTION Take 5 mL by mouth as needed.* Problem List As Of Date 09/07/2017 Noted Resolved INFECTIOUS ENTERITIS NOS [A09] INVALID FOR* MALIG NEOPLASM BREAST-CENTRAL [C50.119] INVALID FOR* MALIGN NEOPL BREAST NOS [C50.919] INVALID FOR* Abdominal pain, generalized [R10.84] INVALID FOR*08/07/2017 Acute pancreatitis [K85.90] INVALID FOR*08/07/2017 Drug induced neutropenia(288.03) [D70.2] INVALID FOR*08/20/2017 CA IN SITU BREAST [D05.90] INVALID FOR* PERS HX OF BREAST MALIGNANCY [Z85.3] INVALID FOR* Hyperlipidemia [E78.5] INVALID FOR* OVERWEIGHT [E66.9] INVALID FOR* Vitamin D Deficiency [E55.9] INVALID FOR* Mastitis [N61.0] INVALID FOR* GERD (Gastroesophageal Reflux Disease) [K21.9] INVALID FOR* Coccydynia [M53.3] 08/07/2017 Sacroiliitis [M46.1] White matter abnormality on MRI of brain [R93.0]INVALID FOR* More... Acute gastritis without mention of hemorrhage [*INVALID FOR* Esophagitis, unspecified [K20.9] INVALID FOR* Sleep apnea [G47.30] INVALID FOR*12/30/2015 More... UTI (lower urinary tract infection) [N39.0] INVALID FOR* More... LPRD (laryngopharyngeal reflux disease) [K21.9] INVALID FOR* Obstructive sleep apnea [G47.33] Memory loss [R41.3] INVALID FOR* Facial pain [R51] INVALID FOR* Bilateral fibrocystic breast changes [N60.11, N*INVALID FOR* Dense breasts [R92.2] INVALID FOR* Personal history of breast cancer [Z85.3] INVALID FOR* Examination of participant in clinical trial [Z*INVALID FOR* Abnormality of right breast on screening mammog*INVALID FOR* More... 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 : No Last mammogram on: 06/17/2017 bilateral Results: see report Coping: On a scale of 0-10 please indicate the number that best describes your level of distress on the average over the past week. 0/10 Referred to social work: No Is the patient active on [employer] Yes Electronically Signed By: Kayleigh Dacosta LPN In Department: [facility] REVIEW OF PATIENT HISTORY: Obstetric History T0 L1 SAB0 TAB0 Ectopic0 Multiple0 Live Births0 Comment: Menarche 10, first live age 30. Breastfed. 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; would resolve with treatment - [facility] - Esophagitis, unspecified - Hair loss - History of Helicobacter pylori infection - Malignant neoplasm of breast (female), unspecified site Breast cancer - Malignant neoplasm of central portion of female breast (HCC) 06/2007 left lumpectomy with axillary dissection, right lumpectomy for DCIS - Memory loss 02/25/2016 - Mitral valve disorders(424.0) - Obstructive sleep apnea - Other specified disease of pancreas 06/23 anesthesia - Sacroiliitis (HCC) - Sinusitis - Viral meningitis - Viral meningitis PAST SURGICAL HISTORY Procedure Laterality Date - BREAST BIOPSY CORE 09/29/2012 right breast MRI guided - BRST BX STEREO LT VACCUUM ASSIST 04 Left - CERVIX UTERI CONIZA LP ELCTRO EXCI LEEP-Cervix - COLONOSCOP W/ OR W/O BRSH SPEC 2010 Colonoscopy - EGD W/O BRSH SPECIMEN W/BX 12/25/0499955 - EGD W/O OR W/BRUSH/WASH 01/06/13 EGD - EGD W/O OR W/BRUSH/WASH 05/01/2014 EGD - EXCIS BREAST LES W XRAY MARKER Right 08/25/2017 Dr. Traore rt needle loc breast bx - LAPAROSCOPIC CHOLEYCYSTECTOMY Cholecystectomy, lap - LEFT HEART CATH,PERCUTANEOUS Cardiac cath, L heart - MASTEC PARTIAL W AXILL NODE REMOV 06-25-07 Right NL PM/AXD - MASTECTOMY PARTIAL 11/10/07 Right Re-Ex PM - PAST SURGICAL HISTORY OF Surgery for endometriosis - PAST SURGICAL HISTORY OF Neuroma left foot - PAST SURGICAL HISTORY OF 2013 hysterectomy (Dr. Campbell) - STEREOTACTIC CORE BIOPSY 05/05/07 LEFT - US BREAST NEEDLE CORE BIOPSY RT 03/31/2014 right breast - VACUUM ASSISTED BREAST BIOPSY 09/15/2012 MRI guided right breast Social History Marital status: Spouse name: Years of education: Number of children: 1 Occupational History Occupation Employer Comment Retired [employer] Social History Main Topics Smoking status: Never Smoker Smokeless status: Never Used Alcohol use: No >> Madina Corbin RN [facility] Sep 07, 2017 12:55 PM Status: Signed The patient is identified by name and date of . Richa Madden presents today for a postoperative visit. She is status post a right breast excisional biopsy. Patient is afebrile today. Incision examined. Wound clean and dry., No redness, warmth, pain or drainage at surgical site. No sign of infection. and Normal healing. Skin edges clean and fully approximated. Patient instructed on: Signs of infection (redness, warmth, pain, and drainage) at surgical site. She stated understanding of all information received today. Patient to notify the office with any new concerns. After visit summary given to Richa Madden Encounter Status:Closed by NICOLASA TRAORE MD on 09/07/17 ANES POST Observed: 08/25/2017 Status: COMPLETED Source: [place] 1:22 PM [facility] REPOSITORY O ID: [id number] Author: Travon Balderrama Service: Anesthesiology Author Type: Anesthesiologist Type: Anesthesia PostOp Filed: 08/25/2017 1:32 PM Note Text: POST ANESTHESIA EVALUATION NOTE SERVICE DATE: August 25, 2017 SERVICE TIME: 1:32 PM : 1950 Vitals: 08/25/17 1223 08/25/17 1238 08/25/17 1253 08/25/17 1315 BP: 125/71 122/68 137/66 132/72 Pulse: 70 (!) 59 63 72 Resp: 16 16 16 16 Temp: 36.1 ?C (97 ?F) 36 ?C (96.8 ?F) TempSrc: Temporal Artery Temporal Artery SpO2: 98% 95% 99% 99% Weight: Validated Vital Signs: Yes No apparent anesthetic complications. The patient is appropriately hydrated with stable respiratory and cardiovascular status. Patient has safe and adequate airway control. The patient has appropriate pain relief and no significant post operative nausea or vomiting. The patient has achieved baseline mental status. Further assessment by Anesthesia Service: None Other Remarks: SIGNATURE: Travon Balderrama DO PATIENT NAME: Richa Madden DATE:August 25, 2017 TIME:1:32 PM PAGER/CONTACT #: [phone] OPERATIVE NO Observed: 08/25/2017 Status: COMPLETED Source: [place] 1:22 PM [facility] REPOSITORY O ID: [id number] Author: Nicolasa Traore Service: General Surgery Author Type: Physician Type: Operative Report Filed: 08/26/2017 9:44 AM Note Text: OPERATIVE REPORT LOG ID: [id number] Surgery Date: 08/25/2017 Incision/Procedure Start Time: 11:56 AM Incision Close/Procedure End Time: 12:13 PM Procedure Performed: Procedure(s) (LRB): EXCISION BREAST LESION IDENTIFIED BY PREOPERATIVE PLACEMENT RADIOLOGICAL MARKER, OPEN, SINGLE LESION (Right) PLACEMENT OF BREAST LOCALIZATION DEVICE(S) PERCUTANEOUS; EACH ADDITIONAL LESION, MAMMOGRAPHIC GUIDANCE (Right) Surgeon(s)/Proceduralist(s) and Acute Care Nurse(s): Surgeon(s) and Role: * Nicolasa Traore - Primary * Vannesa Hdz (Res) Alondra - Resident - Assisting No Additional Staff Anesthesia: Monitored Anesthesia Care Pre-Operative Diagnosis: Right breast asymmetry Post-Operative Diagnosis: same ESTIMATED BLOOD LOSS: Minimal, 1 cc. COMPLICATIONS: No complications. FINDINGS: clip in specimen SPECIMEN: right breast excisional biopsy DRAINS: No drains were placed. PREOPERATIVE ANTIBIOTICS: ancef INDICATIONS: Richa Madden is a 67 year old female who presented with a right breast mass. She underwent a minimally invasive biopsy that showed benign breast tissue that was discordant. I recommended a needle localized excisional biopsy. She understood the risks and benefits of the procedure and consented on the day of surgery. PROCEDURE: The patient went to radiology for needle localization of the clip and area of concern. She was then was brought to the operating room in supine position with the ipsilateral arm abducted 90 degrees.Time out was performed and breast images were reviewed preoperatively. The right breast, chest and axilla were prepped and draped in usual surgical fashion. An vasile was made near the wire. It was infiltrated with 10 cc of 1% lidocaine. A 15 scalpel was used through skin and subcutaneous tissue. Electrocautery was used for further dissection. Superior, medial, inferior, lateral flap, posterior flap were created around the wire. Radiology confirmed the clip was in the specimen. It was marked short superior, long lateral. Wound bed was irrigated, inspected for hemostasis, closed with interrupted 3-0 Vicryl and exophin. Another 10 cc of 0.25% plain Marcaine was used for local anesthesia. The incision was covered by 4 x 4's and paper tape. The patient tolerated the procedure well and was transferred to recovery room in stable condition. The primary surgeon/proceduralist performed the procedure with assistance. SIGNATURE: Nicolasa Traore MD PATIENT NAME: Richa Madden DATE: August 26, 2017 TIME: 9:41 AM PHONE: [phone] PT ED Observed: 08/25/2017 Status: COMPLETED Source: [place] 12:39 PM [facility] REPOSITORY HNO ID: [id number] Author: Yuli (Rn) PHILIP Valdez Service: Nursing Author Type: Registered Nurse Type: Patient Education Filed: 08/25/2017 12:40 PM Note Text: POST OP LEARNING RESPONSE INSTRUCTION PROVIDED TO: Patient and family member METHOD OF INSTRUCTION: Individual instruction Written instruction - handouts Verbal instruction PATIENT / FAMILY RESPONSE: Verbalizes understanding of: INFECTION MANAGEMENT-Signs and symptoms of an infection and importance of contacting the physician MEDICATION DOSE MISSED-Correct action to take if medication dose is missed MEDICATION PRESCRIBED-Accurate knowledge of prescribed medication prior to discharge MEDICATION ROUTE-Correct route for administration of the prescribed medication MEDICATION SIDE EFFECTS-Side effects associated with the medication that warrant a call to the physician PAIN MANAGEMENT-Effective strategies to manage pain in addition to pain medication POST OPERATIVE INSTRUCTIONS RELATED TO: ROUTINE MONITORING AND PROCEDURES: Vital Signs, CARE TO PREVENT COMPLICATIONS: N/A, PAIN CONTROL: Pain Scale, USE OF KNEE IMMOBILIZER: N/A, HOW TO GAIN MOTION BACK: N/A, PRE DISCHARGE: Safety precautions, ADVERSE CONDITIONS TO INFORM YOUR DOCTOR: Signs AND symptoms of Infection and Fever degree greater than 100F or 37.7C WORSENING CONDITION-Signs and symptoms of a worsening condition that warrant a call to the physician WOUND CARE-Correct procedure to perform wound care FOLLOW-UP PLAN: Patient instructed to call with any further issues Follow up phone call. Contact information given. SUPPLEMENTAL MATERIAL: None REFERRAL (RECOMMENDATION): None Electronically Signed By: Yuli Valdez RN In Department: AMBULATORY SURGERY SURGICAL PATHOLOGY Observed: 08/25/2017 Status: F Source: [place] 12:15 PM [facility] REPOSITORY Specimen originated from [facility] Specimen #: [id number] Submitting Physician: NICOLASA TRAORE M.D. FINAL DIAGNOSIS Right breast, mass, needle localized excisional biopsy - Breast tissue with nodule of stromal fibrosis and foci of sclerosing adenosis (please see comment) - Microcalcifications present within stroma and sclerosing adenosis - Biopsy clip and biopsy site reparative changes EDK/GH/dss 08/27/2017 COMMENT The entire specimen has been submitted for histologic evaluation. Rare epithelial changes consistent with the patient's known history of radiation are noted. Erin Quiñones D.O. (Electronic Signature) SPECIMEN SUBMITTED A: RIGHT BREAST MASS CLINICAL DATA ABNORMALITY OF RIGHT BREAST ON SCREENING MAMMOGRAM [R92.8], LMP: N/A SHORT STITCH SUPERIOR AND LONG STITCH LATERAL. 02-24 F-I GROSS DESCRIPTION A. Received in formalin labeled right breast mass, short stitch superior and long stitch lateral consists of an oriented partial mastectomy with localization wire which measures 4.1 (anterior-posterior) x 2.3 (superior-inferior) x 1.0 (medial-lateral) cm and weighs 4.9 grams. An ellipse of skin is not present. An area of interest is denoted on requisition form 02-24, F-I, and this area of interest overlies the medial margin and is inked yellow. The remainder of the medial margin is inked orange. The rest of the specimen is inked as follows: Inferior green, superior blue, posterior black, lateral red, anterior purple. The specimen is sequentially sectioned from anterior to posterior into eight slices. In slice 4, a ribbon clip is identified within an ill-defined white-pink stellate lesion measuring 0.6 x 0.3 x 0.3 cm. It abuts the area of interest/medial margin and is 0.3 cm from the closest lateral margin, 0.8 cm from the closest superior margin, 0.7 cm from the closest inferior margin, 1.9 cm from the closest anterior margin, and 1.9 cm from the closest posterior margin. Additionally, a cylindrical clip located in slice 6 is identified involving an area of firm white fibrosis measuring 1 x 0.7 x 0.5 cm. This area grossly abuts the superior, medial, and lateral margins and is 1.1 cm from the closest inferior, 1.5 cm from the closest posterior, and 2.1 cm from the closest anterior margins. The remainder of the tissue shows fibrofatty breast tissue with foci of hemorrhage and no other discrete mass lesions. The specimen is submitted in its entirety as follows: A1 anterior margins, serially sectioned and on edge, A2-A9 slices 1-8 respectively (ribbon clip in A5, cylindrical clip in A7), A10 posterior margin, serially sectioned and on edge. GH/ka 08/26/17 Gross examination [place] [address] Date of Report: 08/31/2017 Date of Procedure: 08/25/2017 Date of Receipt: 08/25/2017 Submitted by: NICOLASA TRAORE M.D. Location: [facility] Diagnostic interpretation performed at [place] [address]. [facility] SURG BREAST Observed: 08/25/2017 Status: F Source: [facility] RT 12:12 PM [facility] REPOSITORY * * *Final Report* * * DATE OF EXAM: Aug 25 2017 12:12PM W 0639 - [facility] SURG BREAST SPECIMEN RT / PROCEDURE REASON: BREAST ABNORMALITY * * * * Physician Interpretation * * * * RESULT: FINAL REPORT #[id number] - [facility] NDL LOC W ARUNA GD RT DIGITAL MAMMOGRAPHY GUIDED WIRE LOCALIZATION RIGHT BREAST WITH POST DIGITAL MAMMOGRAPHIC IMAGIN08/25/2017 HISTORY: The patient presents for right mammographic (crosshair) guided needle localization as recommended from recent imaging study dated 06/24/2017. Pre and post localization mammographic images were obtained. PATIENT CONSENT: A time out was performed immediately prior to procedure start with the radiology team, correctly identifying the patient name, date of , procedure, anatomy (including marking of site and side), patient position, relevant diagnostic and radiology test results, safety precautions, and procedure-specific equipment needs. The procedure was explained to the patient including the risks, benefits and alternatives. Medications and allergies were also reviewed. The risks, including but not limited to infection and bleeding, were reviewed by the performing physician and the patient agreed to undergo the procedure. The radiologist and technologist were present throughout the entire procedure. Dr. Lam performed the entire procedure without an operations assistant. Audible Time Out Time: 928 Procedure Start Time: 929 Procedure Stop Time: 941. Correlation is made to exam dated: 06/24/2017 [facility] biopsy - [facility]. A wire localization using digital mammography guidance was performed for the marker clip located in the right breast upper outer aspect middle depth. This was described on the previous biopsy report. The skin was prepped in the usual manner. Local anesthetic was administered to the access site. The localization was approached from the caudocranial aspect. A 7.5 cm modified Kopans hookwire apparatus was inserted into the targeted area through an introducer device under digital mammography guidance. The patient received additional local anesthetic during the procedure. A sterile dressing was applied to the access site. Post placement digital mammographic imaging demonstrates the tip passes through the targeted area. IMPRESSION: WIRE LOCALIZATION Wire localization for the marker clip in the right breast upper outer aspect middle depth was successful with no apparent post procedure complications. A specimen radiograph is recommended. #[id number] - [facility] SURG BREAST SPECIMEN RT UNI-PLANAR RADIOGRAPH SPECIMEN IMAGING RIGHT BREAST: 08/25/2017 Correlation is made to exam dated: 06/24/2017 [facility] - [facility]. A surgical specimen was imaged using uni-planar radiograph specimen imaging for the previous biopsy site located in the right breast upper outer aspect middle depth. IMPRESSION: UNI-PLANAR RADIOGRAPH SPECIMEN IMAGING The imaged specimen includes biopsy clips and the distal portion of the localization wire. SUMMARY: Urgent Results: Additional images confirmed that the target (with localization clips and wire) were contained in the specimen radiograph. The results of the specimen radiograph were discussed with Dr. Traore in the O.R. on 08/25/2017 at 12:15PM. Laurence Lam M.D., cp/fidelina:08/25/2017 12:16:47 Produce Production Team Member: Negar Robles RT(R)(Georgie), [facility] Presentation Designer: Fidelina Transcribe Date/Time: Aug 25 2017 9:12A Dictated by: LAURENCE LAM MD This examination was interpreted and the report reviewed and electronically signed by: LAURENCE LAM MD on Aug 25 2017 12:16PM EST [id number] ANES PREOP Observed: 08/25/2017 Status: COMPLETED Source: [place] 10:37 AM [facility] REPOSITORY O ID: [id number] Author: Travon Balderrama Service: Anesthesiology Author Type: Anesthesiologist Type: Anesthesia PreOp Filed: 08/25/2017 10:40 AM Note Text: ANESTHESIOLOGY DAY OF SURGERY NOTE SERVICE DATE: 08/25/2017 SERVICE TIME: 10:38 AM : 1950 Procedure(s) (LRB): EXCISION BREAST LESION IDENTIFIED BY PREOPERATIVE PLACEMENT RADIOLOGICAL MARKER, OPEN, SINGLE LESION (Right) PLACEMENT OF BREAST LOCALIZATION DEVICE(S) PERCUTANEOUS; EACH ADDITIONAL LESION, MAMMOGRAPHIC GUIDANCE (Right) Surgeon(s): Nicolasa Traore Estimated body mass index is 30.59 kg/(m2) as calculated from the following: Height as of 08/07/17: 163.8 cm (5' 4.5). Weight as of this encounter: 82.1 kg (181 lb). 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) Malignant Neoplasm of Breast (Female), Unspecified Site Carcinoma in Situ of Breast Personal History of Malignant Neoplasm of Breast Hyperlipidemia OVERWEIGHT Vitamin D Deficiency Mastitis Gerd (Gastroesophageal Reflux Disease) Sacroiliitis (Hcc) White Matter Abnormality On Mri of Brain Acute Gastritis Without Mention of Hemorrhage Esophagitis, Unspecified Uti (Lower Urinary Tract Infection) Lprd (Laryngopharyngeal Reflux Disease) Obstructive Sleep Apnea Memory Loss Facial Pain Bilateral Fibrocystic Breast Changes Dense Breasts Personal History of Breast Cancer Examination of Participant in Clinical Trial Abnormality of Right Breast On Screening Mammogram Polyarthropathy 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; would resolve with treatment - Coccydynia pain management at [facility] - Esophagitis, unspecified - Hair loss - History of Helicobacter pylori infection - Malignant neoplasm of breast (female), unspecified site Breast cancer - Malignant neoplasm of central portion of female breast (HCC) 06/2007 left lumpectomy with axillary dissection, right lumpectomy for DCIS - Memory loss 02/25/2016 - Mitral valve disorders(424.0) - Obstructive sleep apnea - Other specified disease of pancreas 06/23 anesthesia - Sacroiliitis (HCC) - Sinusitis - Viral meningitis - Viral meningitis PAST SURGICAL HISTORY Procedure Laterality Date - BREAST BIOPSY CORE 09/29/2012 right breast MRI guided - BRST BX STEREO LT VACCUUM ASSIST 04 Left - CERVIX UTERI CONIZA LP ELCTRO EXCI LEEP-Cervix - COLONOSCOP W/ OR W/O BRSH SPEC 2010 Colonoscopy - EGD W/O BRSH SPECIMEN W/BX [id number] - EGD W/O OR W/BRUSH/WASH 01/06/13 EGD - EGD W/O OR W/BRUSH/WASH 05/01/2014 EGD - LAPAROSCOPIC CHOLEYCYSTECTOMY Cholecystectomy, lap - LEFT HEART CATH,PERCUTANEOUS Cardiac cath, L heart - MASTEC PARTIAL W AXILL NODE REMOV 06-25-07 Right NL PM/AXD - MASTECTOMY PARTIAL 11/10/07 Right Re-Ex PM - PAST SURGICAL HISTORY OF Surgery for endometriosis - PAST SURGICAL HISTORY OF Neuroma left foot - PAST SURGICAL HISTORY OF 2013 hysterectomy (Dr. Campbell) - STEREOTACTIC CORE BIOPSY 05/05/07 LEFT - US BREAST NEEDLE CORE BIOPSY RT 03/31/2014 right breast - VACUUM ASSISTED BREAST BIOPSY 09/15/2012 MRI guided right breast FAMILY HISTORY Problem Relation Age of Onset - Cancer Father - Lung Cancer [OTHER] Father Spread to liver and possibly brain - Nasal polyps [OTHER] Father Seasonal allergies - COPD Mother - Stroke Mother - Nasal polyps [OTHER] Mother Seasonal allergies - Seizures Brother - Breast Cancer Other paternal great aunt - Nasal polyps [OTHER] Brother Seasonal allergies Social History: Social History Substance Use Topics - Smoking status: Never Smoker - Smokeless tobacco: Never Used - Alcohol use No No current facility-administered medications on file prior to encounter. Current Outpatient Prescriptions on File Prior to Encounter: predniSONE (DELTASONE) 10 mg tablet Take 4 tabs daily x 3 days, then 3 tabs x 3 days, 2 tabs x 3 days, then 1 tab x3 days with food. albuterol HFA (PROAIR HFA) 90 mcg/actuation inhaler Inhale 2 Puffs as instructed every 4 hours as needed. predniSONE (DELTASONE) 5 mg tablet Take 5 mg by mouth once daily. fluticasone (FLONASE) 50 mcg/actuation nasal spray Use 1-2 Sprays in each nostril once daily. Rinse mouth after use. pantoprazole DR (PROTONIX) 40 mg tablet Take 1 tablet by mouth twice daily. donepezil (ARICEPT) 10 mg tablet Take 1 tablet by mouth daily with breakfast. Multivitamin capsule Take 1 capsule by mouth once daily. folic acid 1 mg tablet 1 mg twice daily. methotrexate 2.5 mg tablet Four tablet once per week alendronate (FOSAMAX) 70 mg tablet once each week. DULoxetine (CYMBALTA) 60 mg capsule Take 1 capsule by mouth once daily. CPAP AutoPAP 5-15 cmH2O, suitable mask, humidity, filters. Lifetime supplies. Dx: G47.33 ibuprofen (ADVIL) 200 mg tablet Take 3 tablets by mouth twice daily. COMPOUNDED PRESCRIPTION Overnight pulse ox 6-8 weeks after CPAP set up per sleep study recommendationsDiagnoses: (G47.33, Z99.89) CRISTINA on CPAP; (G47.34) Nocturnal hypoxemia lactobac cmb #[id number] (PROBIOTIC AND ACIDOPHILUS) 300-250 million cell-mg cap Take 1 capsule by mouth twice daily. EPINEPHrine (EPIPEN) 0.3 mg/0.3 mL (1:1,000) auto-injector Inject 0.3 mg intramuscularly as needed. lidocaine viscous (LIDOCAINE VISCOUS) 2 % solution Take 5 mL by mouth as needed. May mix as directed to make BMX solution Current Facility-Administered Medications: lidocaine 10 mg/mL (1 %) 1-2 mg injection (XYLOCAINE) 0.1- 0.2 mL INTRADERMAL PRN Maris (Pa-C) Blaine lactated ringers infusion 5-30 mL/hr INTRAVENOUS CONTINUOUS Maris (Pa-C) Blaine Last Rate: 30 mL/hr at 01/09/18 0959 30 mL/hr at 08/25/17 0959 ceFAZolin 2 g in dextrose (iso-osmotic) 50 mL (ANCEF,KEFZOL) 2 g INTRAVENOUS Pre-Op Once Maris Ravi) Blaine famotidine 20 mg injection (PEPCID) 20 mg INTRAVENOUS ONCE Travon Tacos Allergies: ALLERGIES Allergen Reactions - Tegretol [Carbamaze* Mental Status Change, GI Upset, Other: See Comments Decreased sodium, sore throat. (hyponatremia) - Bees Swelling - Codeine Intolerance Horrible side effects causing pancreatitis - Elavil [Amitriptyli* Swelling, Anaphylaxis - Prevacid [Lansopraz* GI Upset severe - Thiopental Sodium Vomiting - Sodium Pentathol [O* Vomiting - Adhesive Tape (Kim* Rash - Steristrips/Adhesiv* Rash DOS EXAM: Adequate NPO Status: Yes Anesthetic Risks, Benefits, Alternatives, Personnel and Consent Discussed: Yes Patient agrees to proceed: Yes Previous Anesthesia: No history of adverse event Airway Assessment: MP 2; Neck ROM: Full ROM without neurologic symptoms; Airway Evaluation: No significant abnormalities Symptoms of Sleep Apnea: Known CRISTINA, uses CPAP Dentition: Teeth intact Additional Physical Exam: Lungs: Patient health status unchanged since recent history and physical. See history and physical for exam findings. Cardiac: Patient health status unchanged since recent history and physical. See history and physical for exam findings. Additional Pertinent Findings: N/A Blood Products: Will accept Blood/Blood Products Anesthetic Plan: MAC with general as back up Anesthetic Monitoring: Standard ASA Monitors Pain Management Plan: Parenteral or Oral ASA Class: 2 Other Medical Problems: None Chronic Beta True medication administered within 24 hours: N/A I have interviewed and examined the patient. I have reviewed the medical record and/or the pre-anesthesia evaluation, pertinent labs, and test results. Significant changes in the patient's condition since the History and Physical, not otherwise documented in primary service progress notes: No This contains updated information obtained within 48 hours of Surgery/Procedure. SIGNATURE: Travon Balderrama DO PATIENT NAME: Richa Madden DATE: August 25, 2017 TIME: 10:37 AM CSN: [id number] PROGRESS Observed: 08/25/2017 Status: COMPLETED Source: [place] 9:57 AM [facility] REPOSITORY O ID: [id number] Author: Negar Robles Rt Service: (none) Author Type: (none) Type: Progress Notes Filed: 08/25/2017 9:59 AM Note Text: Double Identification Patient's idenity was verified by name and : Yes Procedure: Mammogram Needle Localization Site Verification: right No Nursing No Allergies ALLERGIES Allergen Reactions - Tegretol [Carbamaze* Mental Status Change, GI Upset, Other: See Comments Decreased sodium, sore throat. (hyponatremia) - Bees Swelling - Codeine Intolerance Horrible side effects causing pancreatitis - Elavil [Amitriptyli* Swelling, Anaphylaxis - Prevacid [Lansopraz* GI Upset severe - Thiopental Sodium Vomiting - Sodium Pentathol [O* Vomiting - Adhesive Tape (Kim* Rash - Steristrips/Adhesiv* Rash Is the patient having any pain? None Physician, Nurse, Technologist: Soraya Lam MD PREOPERATIVE/PROCEDURAL VERIFICATION: Patient verified by: Name and Date of Procedure to be performed: Mammogram Needle Localization Site of the procedure confirmed:Yes Site:right Patient position: Sitting Equipment/implant present:Wire and Imaging Data Staff involved: Soraya Lam MD Relevant documentation, images, implants or special equipment present: Yes MARKING THE SITE: Procedural site verified by:Physically marking the site on or near incision site, with persistent marker and remains visible once patient prepped. PROCEDURAL TIME OUT: All team activity stops Time out verification includes:Audible time-out documented: Yes. Time: 9:28 Two Patient Identifiers Correct side and site marking Accurate Consent Agreement on the procedure to be done Correct Positioning Imaging and Test Results Properly Labeled and Displayed Safety Precautions Based on Patient History or Medication Alcohol-based skin prep unit dose applicator used: ChloraPrep No soaking of the patient's hair or linens noted NUMBER OF SPECIMENS SENT TO LAB: 0 Sign in Communication: Completed Time Out: Team Confirms the Correct Patient, Correct Procedure, Correct Site and Site Marking, Correct Position (if applicable). Time: 9:28 Affirmation of Time Out: YES Sign Out Discussion: Post procedure verbal instructions were given to patient. ARUNA VALDOVINOS Observed: 08/25/2017 Status: C Source: [facility] RT 9:44 AM [facility] REPOSITORY * * *Final Report* * * * * * SEE BOTTOM OF REPORT FOR ADDENDED TEXT * * * DATE OF EXAM: Aug 25 2017 9:44AM SSW [id number] - [facility] NDL LOC W ARUNA GD RT / PROCEDURE REASON: BREAST ABNORMALITY * * * * Physician Interpretation * * * * RESULT: FINAL REPORT #[id number] - [facility] LOC W [place] GD RT DIGITAL MAMMOGRAPHY GUIDED WIRE LOCALIZATION RIGHT BREAST WITH POST DIGITAL MAMMOGRAPHIC IMAGIN08/25/2017 HISTORY: The patient presents for right mammographic (crosshair) guided needle localization as recommended from recent imaging study dated 06/24/2017. Pre and post localization mammographic images were obtained. PATIENT CONSENT: A time out was performed immediately prior to procedure start with the radiology team, correctly identifying the patient name, date of , procedure, anatomy (including marking of site and side), patient position, relevant diagnostic and radiology test results, safety precautions, and procedure-specific equipment needs. The procedure was explained to the patient including the risks, benefits and alternatives. Medications and allergies were also reviewed. The risks, including but not limited to infection and bleeding, were reviewed by the performing physician and the patient agreed to undergo the procedure. The radiologist and technologist were present throughout the entire procedure. Dr. Lam performed the entire procedure without an operations assistant. Audible Time Out Time: 928 Procedure Start Time: 929 Procedure Stop Time: 941. Correlation is made to exam dated: 06/24/2017 [facility]. A wire localization using digital mammography guidance was performed for the marker clip located in the right breast upper outer aspect middle depth. This was described on the previous biopsy report. The skin was prepped in the usual manner. Local anesthetic was administered to the access site. The localization was approached from the caudocranial aspect. A 7.5 cm modified Kopans hookwire apparatus was inserted into the targeted area through an introducer device under digital mammography guidance. The patient received additional local anesthetic during the procedure. A sterile dressing was applied to the access site. Post placement digital mammographic imaging demonstrates the tip passes through the targeted area. IMPRESSION: WIRE LOCALIZATION Wire localization for the marker clip in the right breast upper outer aspect middle depth was successful with no apparent post procedure complications. A specimen radiograph is recommended. #[id number] - [facility] SURG BREAST SPECIMEN RT UNI-PLANAR RADIOGRAPH SPECIMEN IMAGING RIGHT BREAST: 08/25/2017 Correlation is made to exam dated: 06/24/2017 ultrasound biopsy - [facility]. A surgical specimen was imaged using uni-planar radiograph specimen imaging for the previous biopsy site located in the right breast upper outer aspect middle depth. IMPRESSION: UNI-PLANAR RADIOGRAPH SPECIMEN IMAGING The imaged specimen includes biopsy clips and the distal portion of the localization wire. SUMMARY: Urgent Results: Additional images confirmed that the target (with localization clips and wire) were contained in the specimen radiograph. The results of the specimen radiograph were discussed with Dr. Traore in the O.R. on 08/25/2017 at 12:15PM. Laurence Lam M.D. cp/fidelina:08/25/2017 12:16:47 Produce Production Team Member: Negar SOLIS)(M), [facility] Presentation Designer: Fidelina Transcribe Date/Time: Aug 25 2017 9:12A Dictated by: LAURENCE LAM MD This examination was interpreted and the report reviewed and electronically signed by: LAURENCE LAM MD on Aug 25 2017 9:54AM EST This document has been addended by: LAURENCE LAM MD on Aug 25 2017 12:16PM EST [id number] PT ED Observed: 08/25/2017 Status: COMPLETED Source: [place] 8:51 AM [facility] REPOSITORY HNO ID: [id number] Author: Susanna OttRn) Jackeline, RN Service: (none) Author Type: Registered Nurse Type: Patient Education Filed: 08/25/2017 8:52 AM Note Text: PRE OP LEARNING ASSESSMENT PROCEDURE/SURGERY: SURGERY: Right Needle Localization Breast Biopsy READINESS TO LEARN COGNITIVE ABILITY: Alert and oriented MOTIVATION TO LEARN: Eager FAMILY SUPPORT: High - Very involved in pt care PATIENT LEARNS BEST BY: Individual Instruction Written Instruction - Hand-outs Verbal Instruction FACTORS AFFECTING LEARNING: None PHYSICAL LIMITATIONS AFFECTING LEARNING: None Electronically Signed By: Susanna Viveros RN In Department: AMBULATORY SURGERY NURSING PROG Observed: 08/21/2017 Status: COMPLETED Source: [place] 2:19 PM [facility] REPOSITORY HNO ID: [id number] Author: Tiffani OttRn) Jerrell, RN Service: (none) Author Type: Registered Nurse Type: Nursing Progress Note Filed: 08/21/2017 2:20 PM Note Text: PACC Nurse Progress Note History AND Physical: PACC Visit Date: 08/07 Original HANDP Date: N/A ED visit Date: N/A Outside HANDP Scanned Date: N/A Labs Within Last 6 Months: CBC: Date 08/07 BMP/CMP: Date 08/07 outside labs available in epic Imaging Within Last 12 Months: N/A Cardiac Testing: N/A Last Menstrual Period: LMP Date: N/A Postmenopausal >1yr: Yes, S/P Hysterectomy: No BMI Percentile (PEDS): N/A Risk Assessment: N/A Anesthesia Review: N/A Narrative: N/A Pre-op Considerations: N/A Chart Check: COMPLETED Tiffani Allan RN August 21, 2017 2:19 PM NURSING PROG Observed: 08/14/2017 Status: COMPLETED Source: [place] 7:44 AM [facility] REPOSITORY HNO ID: [id number] Author: Elvira (Rn) PHILIP Anderosn Service: Neurosurgery Author Type: Registered Nurse Type: Nursing Progress Note Filed: 08/14/2017 7:45 AM Note Text: PACC Nurse Progress Note History AND Physical: PACC Visit Date: 08-07 Labs Within Last 6 Months: N/A Imaging Within Last 12 Months: N/A Cardiac Testing: N/A Chart Check: COMPLETED Uses CPAP Elvira Anderson RN August 14, 2017 7:44 AM HOSP Observed: 08/14/2017 Status: COMPLETED Source: [place] 12:00 AM [facility] REPOSITORY Patient:Richa Madden MRN: <[id number]> Height:5' 4.5(1.638 m) Weight:181 lb (82.101 kg) Outpatient Medications as of 08/25/17: predniSONE (DELTASONE) 10 mg tablet albuterol HFA (PROAIR HFA) 90 mcg/actuation inhaler predniSONE (DELTASONE) 5 mg tablet fluticasone (FLONASE) 50 mcg/actuation nasal spray pantoprazole DR (PROTONIX) 40 mg tablet donepezil (ARICEPT) 10 mg tablet Multivitamin capsule folic acid 1 mg tablet methotrexate 2.5 mg tablet alendronate (FOSAMAX) 70 mg tablet DULoxetine (CYMBALTA) 60 mg capsule CPAP ibuprofen (ADVIL) 200 mg tablet lidocaine viscous (LIDOCAINE VISCOUS) 2 % solution COMPOUNDED PRESCRIPTION lactobac b #[id number] (PROBIOTIC AND ACIDOPHILUS) 300-250 million cell-mg cap EPINEPHrine (EPIPEN) 0.3 mg/0.3 mL (1:1,000) auto-injector Admission/Clinic Administered Medications as of 08/25/17: lidocaine 10 mg/mL (1 %) 1-2 mg injection (XYLOCAINE) lactated ringers infusion ceFAZolin 2 g in dextrose (iso-osmotic) 50 mL (ANCEF,KEFZOL) Problem List: Infectious colitis, enteritis, and gastroenteritis [A09] Malignant neoplasm of central portion of female breast (HCC) [C50.119] Malignant neoplasm of breast (female), unspecified site [C50.919] Carcinoma in situ of breast [D05.90] Personal history of malignant neoplasm of breast [Z85.3] Hyperlipidemia [E78.5] OVERWEIGHT [E66.9] Vitamin D deficiency [E55.9] Mastitis [N61.0] GERD (gastroesophageal reflux disease) [K21.9] Sacroiliitis (HCC) [M46.1] White matter abnormality on MRI of brain [R93.0] Acute gastritis without mention of hemorrhage [K29.00] Esophagitis, unspecified [K20.9] UTI (lower urinary tract infection) [N39.0] LPRD (laryngopharyngeal reflux disease) [K21.9] Obstructive sleep apnea [G47.33] Memory loss [R41.3] Facial pain [R51] Bilateral fibrocystic breast changes [N60.11, N60.12] Dense breasts [R92.2] Personal history of breast cancer [Z85.3] Examination of participant in clinical trial [Z00.6] Abnormality of right breast on screening mammogram [R92.8] 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] Allergies: Tegretol [Carbamazepine] Bees Codeine Elavil [Amitriptyline] Prevacid [Lansoprazole] Thiopental Sodium sodium pentathol [Other] Adhesive Tape (Rosins) steristrips/adhesive [Other] Date Verified: 08/25/17 Lab Values No results within the last 30 days for the following basenames: K,HCT Progress Notes ([facility]): Negar Robles Rt 08/25/2017 9:59 AM Signed Double Identification Patient's idenity was verified by name and : Yes Procedure: Mammogram Needle Localization Site Verification: right No Nursing No Allergies ALLERGIES Allergen Reactions - Tegretol [Carbamaze* Mental Status Change, GI Upset, Other: See Comments Decreased sodium, sore throat. (hyponatremia) - Bees Swelling - Codeine Intolerance Horrible side effects causing pancreatitis - Elavil [Amitriptyli* Swelling, Anaphylaxis - Prevacid [Lansopraz* GI Upset severe - Thiopental Sodium Vomiting - Sodium Pentathol [O* Vomiting - Adhesive Tape (Kim* Rash - Steristrips/Adhesiv* Rash Is the patient having any pain? None Physician, Nurse, Technologist: Soraya Lam MD PREOPERATIVE/PROCEDURAL VERIFICATION: Patient verified by: Name and Date of Procedure to be performed: Mammogram Needle Localization Site of the procedure confirmed:Yes Site:right Patient position: Sitting Equipment/implant present:Wire and Imaging Data Staff involved: Soraya Lam MD Relevant documentation, images, implants or special equipment present: Yes MARKING THE SITE: Procedural site verified by:Physically marking the site on or near incision site, with persistent marker and remains visible once patient prepped. PROCEDURAL TIME OUT: All team activity stops Time out verification includes:Audible time-out documented: Yes. Time: 9:28 Two Patient Identifiers Correct side and site marking Accurate Consent Agreement on the procedure to be done Correct Positioning Imaging and Test Results Properly Labeled and Displayed Safety Precautions Based on Patient History or Medication Alcohol-based skin prep unit dose applicator used: ChloraPrep No soaking of the patient's hair or linens noted NUMBER OF SPECIMENS SENT TO LAB: 0 Sign in Communication: Completed Time Out: Team Confirms the Correct Patient, Correct Procedure, Correct Site and Site Marking, Correct Position (if applicable). Time: 9:28 Affirmation of Time Out: YES Sign Out Discussion: Post procedure verbal instructions were given to patient. Progress Notes ([facility]): Néstor Thompson MD 08/13/2017 8:25 AM Signed Request through [employer] for pocket inhalation aerosol through 's chart (my name did not appear on menu for her [employer] messaging)--another term for spacer. Has appointment today, but sending RX to local pharmacy so can see if this helps with use of inhaler. Printed in case needs faxed elsewhere to be covered. Yazmin George Cma 08/13/2017 9:26 AM Signed Rx faxed to [facility]. PROGRESS Observed: 08/13/2017 Status: COMPLETED Source: [place] 3:17 PM [facility] REPOSITORY HNO ID: [id number] Author: Néstor Thompson Service: (none) Author Type: Physician Type: Progress Notes Filed: 08/27/2017 12:24 AM Note Text: Patient presents with: URI SUBJECTIVE: Richa Madden is a 67 year old year old lady here today for follow up appointment for review of medical conditions. Ongoing cough and chest congestion. Wheezing all night last night. Been using spacer with albuterol. No fevers or chills. Was hoping to get better by next Thursday for surgical procedure, but at this point, agrees that better to postpone for now and just focus on getting over current illness with severe cough. 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; would resolve with treatment - Coccydynia pain management at [facility] - Esophagitis, unspecified - Hair loss - History of Helicobacter pylori infection - Malignant neoplasm of breast (female), unspecified site Breast cancer - Malignant neoplasm of central portion of female breast (HCC) 06/2007 left lumpectomy with axillary dissection, right lumpectomy for DCIS - Memory loss 02/25/2016 - Mitral valve disorders(424.0) - Obstructive sleep apnea - Other specified disease of pancreas 06/23 anesthesia - Sacroiliitis (HCC) - Sinusitis - Viral meningitis - Viral meningitis Current Outpatient Prescriptions: albuterol HFA (PROAIR HFA) 90 mcg/actuation inhaler Inhale 2 Puffs as instructed every 4 hours as needed. predniSONE (DELTASONE) 5 mg tablet Take 5 mg by mouth once daily. fluticasone (FLONASE) 50 mcg/actuation nasal spray Use 1-2 Sprays in each nostril once daily. Rinse mouth after use. pantoprazole DR (PROTONIX) 40 mg tablet Take 1 tablet by mouth twice daily. donepezil (ARICEPT) 10 mg tablet Take 1 tablet by mouth daily with breakfast. Multivitamin capsule Take 1 capsule by mouth once daily. folic acid 1 mg tablet 1 mg twice daily. methotrexate 2.5 mg tablet Four tablet once per week alendronate (FOSAMAX) 70 mg tablet once each week. DULoxetine (CYMBALTA) 60 mg capsule Take 1 capsule by mouth once daily. CPAP AutoPAP 5-15 cmH2O, suitable mask, humidity, filters. Lifetime supplies. Dx: G47.33 ibuprofen (ADVIL) 200 mg tablet Take 3 tablets by mouth twice daily. lidocaine viscous (LIDOCAINE VISCOUS) 2 % solution Take 5 mL by mouth as needed. May mix as directed to make BMX solution COMPOUNDED PRESCRIPTION Overnight pulse ox 6-8 weeks after CPAP set up per sleep study recommendationsDiagnoses: (G47.33, Z99.89) CRISTINA on CPAP; (G47.34) Nocturnal hypoxemia lactobac cmb #1-djg-dqydtoqaxe (PROBIOTIC AND ACIDOPHILUS) 300-250 million cell-mg cap Take 1 capsule by mouth twice daily. EPINEPHrine (EPIPEN) 0.3 mg/0.3 mL (1:1,000) auto-injector Inject 0.3 mg intramuscularly as needed. No current facility-administered medications for this visit. OBJECTIVE: BP 120/70 Pulse 84 Temp 36.7 ?C (98 ?F) (Temporal Artery) Resp 16 SpO2 96% Patient is alert, oriented times 3, no apparent distress, affect is bright, reactive. Heart: Regular rate, rhythm, no murmurs, gallops, rubs. Lungs: Clear to auscultation, bilaterally, breathing non labored. Frequent cough. Ext: No cyanosis, clubbing, or edema. ASSESSMENT AND PLAN: Encounter Diagnosis ICD-10-CM 1. Acute bronchitis, unspecified organism J20.9 predniSONE (DELTASONE) 10 mg tablet levoFLOXacin (LEVAQUIN) 500 mg tablet persistent cough and chest congestion Above issues addressed with patient. Patient involved in shared decision making for management of her medical issues. History and medications reviewed. Epic updated as needed RXs taken care of and meds adjusted as indicated after reviewed history, exam and labs. Health Maintenance reviewed. Updated record and/or ordered tests as recorded. Discussed management of current infection and cough. Adjust meds as indicated. Continue prn albuterol. Further evaluation and treatment as indicated. Should be able to reschedule surgery after about 7 to 10 days. The majority of the visit was spent counseling and/or coordinating care for the patient. Uvvh-jd-dikl time was at least 25 minutes. Néstor Thompson MD CNOV Observed: 08/13/2017 Status: COMPLETED Source: [place] 2:40 PM [facility] REPOSITORY Office Visit (INTMWS) MADDENZOHRA LOWECECIL Yee ([id number]) 1950 F Date Time Provider Department 08/13/17 2:40 PM NÉSTOR THOMPSON [facility] During your visit today, we recorded the following information about you: Temperature Pulse Respiration Blood pressure 98 degrees 84/minute 16/minute 120/70 Néstor Thompson MD 08/27/2017 12:24 AM Signed Patient presents with: URI SUBJECTIVE: Richa Nakia Chano is a 67 year old year old lady here today for follow up appointment for review of medical conditions. Ongoing cough and chest congestion. Wheezing all night last night. Been using spacer with albuterol. No fevers or chills. Was hoping to get better by next Thursday for surgical procedure, but at this point, agrees that better to postpone for now and just focus on getting over current illness with severe cough. 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; would resolve with treatment - [facility] - Esophagitis, unspecified - Hair loss - History of Helicobacter pylori infection - Malignant neoplasm of breast (female), unspecified site Breast cancer - Malignant neoplasm of central portion of female breast (HCC) 06/2007 left lumpectomy with axillary dissection, right lumpectomy for DCIS - Memory loss 02/25/2016 - Mitral valve disorders(424.0) - Obstructive sleep apnea - Other specified disease of pancreas 06/23 anesthesia - Sacroiliitis (HCC) - Sinusitis - Viral meningitis - Viral meningitis Current Outpatient Prescriptions: albuterol HFA (PROAIR HFA) 90 mcg/actuation inhaler Inhale 2 Puffs as instructed every 4 hours as needed. predniSONE (DELTASONE) 5 mg tablet Take 5 mg by mouth once daily. fluticasone (FLONASE) 50 mcg/actuation nasal spray Use 1-2 Sprays in each nostril once daily. Rinse mouth after use. pantoprazole DR (PROTONIX) 40 mg tablet Take 1 tablet by mouth twice daily. donepezil (ARICEPT) 10 mg tablet Take 1 tablet by mouth daily with breakfast. Multivitamin capsule Take 1 capsule by mouth once daily. folic acid 1 mg tablet 1 mg twice daily. methotrexate 2.5 mg tablet Four tablet once per week alendronate (FOSAMAX) 70 mg tablet once each week. DULoxetine (CYMBALTA) 60 mg capsule Take 1 capsule by mouth once daily. CPAP AutoPAP 5-15 cmH2O, suitable mask, humidity, filters. Lifetime supplies. Dx: G47.33 ibuprofen (ADVIL) 200 mg tablet Take 3 tablets by mouth twice daily. lidocaine viscous (LIDOCAINE VISCOUS) 2 % solution Take 5 mL by mouth as needed. May mix as directed to make BMX solution COMPOUNDED PRESCRIPTION Overnight pulse ox 6-8 weeks after CPAP set up per sleep study recommendationsDiagnoses: (G47.33, Z99.89) CRISTINA on CPAP; (G47.34) Nocturnal hypoxemia lactobac cmb #5-ksj-nwrpcjrakb (PROBIOTIC AND ACIDOPHILUS) 300-250 million cell-mg cap Take 1 capsule by mouth twice daily. EPINEPHrine (EPIPEN) 0.3 mg/0.3 mL (1:1,000) auto-injector Inject 0.3 mg intramuscularly as needed. No current facility-administered medications for this visit. OBJECTIVE: BP 120/70 Pulse 84 Temp 36.7 ?C (98 ?F) (Temporal Artery) Resp 16 SpO2 96% Patient is alert, oriented times 3, no apparent distress, affect is bright, reactive. Heart: Regular rate, rhythm, no murmurs, gallops, rubs. Lungs: Clear to auscultation, bilaterally, breathing non labored. Frequent cough. Ext: No cyanosis, clubbing, or edema. ASSESSMENT AND PLAN: Encounter Diagnosis ICD-10-CM 1. Acute bronchitis, unspecified organism J20.9 predniSONE (DELTASONE) 10 mg tablet levoFLOXacin (LEVAQUIN) 500 mg tablet persistent cough and chest congestion Above issues addressed with patient. Patient involved in shared decision making for management of her medical issues. History and medications reviewed. Epic updated as needed RXs taken care of and meds adjusted as indicated after reviewed history, exam and labs. Health Maintenance reviewed. Updated record and/or ordered tests as recorded. Discussed management of current infection and cough. Adjust meds as indicated. Continue prn albuterol. Further evaluation and treatment as indicated. Should be able to reschedule surgery after about 7 to 10 days. The majority of the visit was spent counseling and/or coordinating care for the patient. Ilak-tk-chcr time was at least 25 minutes. MD Néstor Hernandez MD 08/13/2017 3:35 PM Signed Prednisone 20 mg daily for 3 days then 10 mg for 3 days then back to 5 mg daily. If 20 mg not enough, may increase up to 30 mg then then taper again every 3 to 5 days by 5 to 10mg increments. Referring Provider: SELF [200] Allergies As of Date: 08/13/2017 Noted Allergy Reaction TEGRETOL (CARBAMAZEPINE) 03/02/2012 1 - Mental Status Change 8 - GI Upset 14 - Other: See Comments Comments: Decreased sodium, sore throat. (hyponatremia) BEES 03/31/2014 7 - Swelling CODEINE 07/12/2007 5 - Intolerance Comments: Horrible side effects causing pancreatitis ELAVIL (AMITRIPTYLINE) 09/09/2011 7 - Swelling 10 - Anaphylaxis PREVACID (LANSOPRAZOLE) 01/13/2012 8 - GI Upset Comments: severe THIOPENTAL SODIUM 06/25/2007 11 - Vomiting sodium pentathol [Other] 09/19/2005 11 - Vomiting ADHESIVE TAPE (ROSINS) 06/25/2007 2 - Rash steristrips/adhesive [Other] 06/24/2007 2 - Rash Date Reviewed: 08/13/2017 Reviewed by: Yazmin George [employer] - Fully Assessed Reason for Visit: URI [115] Visit Diagnosis:Acute bronchitis, unspecified organism [J20.9] Comment:persistent cough and chest congestion Order(s):[] predniSONE (DELTASONE) 10 mg tabletTake 4 tabs daily x 3 days, then 3 tabs x 3 days, 2 tabs x 3 days, then 1 tab x3 days with food.Disp: 30 tabletRfl: 0 [] levoFLOXacin (LEVAQUIN) 500 mg tabletTake 1 tablet by mouth once daily for 10 days.Disp: 10 tabletRfl: 0 ARUNA NDL LOC W ARUNA GD RT [[id number]] Order #: [id number]. #:[id number] ARUNA SURGICAL BREAST SPECIMEN RT [[id number]] Order #: [id number]. #:[id number] Prescriptions as of 08/13/2017 Sig: PREDNISONE 10 MG TABLET Take 4 tabs daily x 3 days, t* LEVOFLOXACIN 500 MG TABLET Take 1 tablet by mouth once d* ALBUTEROL SULFATE HFA 90 MCG/* Inhale 2 Puffs as instructed * PREDNISONE 5 MG TABLET Take 5 mg by mouth once daily. FLUTICASONE 50 MCG/ACTUATION * Use 1-2 Sprays in each nostri* PANTOPRAZOLE 40 MG TABLET,DEL* Take 1 tablet by mouth twice * DONEPEZIL 10 MG TABLET Take 1 tablet by mouth daily * MULTIVITAMIN CAPSULE Take 1 capsule by mouth once * FOLIC ACID 1 MG TABLET 1 mg twice daily. METHOTREXATE SODIUM 2.5 MG TA* Four tablet once per week ALENDRONATE 70 MG TABLET once each week. DULOXETINE 60 MG CAPSULE,PAULINA* Take 1 capsule by mouth once * CPAP AutoPAP 5-15 cmH2O, suitable * IBUPROFEN 200 MG TABLET Take 3 tablets by mouth twice* LIDOCAINE 2 % MUCOSAL SOLUTION Take 5 mL by mouth as needed.* COMPOUNDED PRESCRIPTION Overnight pulse ox 6-8 weeks * LACTOBACILLUS COMB NO.3-FOS-P* Take 1 capsule by mouth twice* EPINEPHRINE 0.3 MG/0.3 ML INJ* Inject 0.3 mg intramuscularly* Problem List As Of Date 08/13/2017 Noted Resolved INFECTIOUS ENTERITIS NOS [A09] INVALID FOR* MALIG NEOPLASM BREAST-CENTRAL [C50.119] INVALID FOR* MALIGN NEOPL BREAST NOS [C50.919] INVALID FOR* Abdominal pain, generalized [R10.84] INVALID FOR*08/07/2017 Acute pancreatitis [K85.90] INVALID FOR*08/07/2017 DRUG INDUCED NEUTROPENIA [D70.2] INVALID FOR* CA IN SITU BREAST [D05.90] INVALID FOR* PERS HX OF BREAST MALIGNANCY [Z85.3] INVALID FOR* Hyperlipidemia [E78.5] INVALID FOR* OVERWEIGHT [E66.9] INVALID FOR* Vitamin D Deficiency [E55.9] INVALID FOR* Mastitis [N61.0] INVALID FOR* GERD (Gastroesophageal Reflux Disease) [K21.9] INVALID FOR* Coccydynia [M53.3] 08/07/2017 Sacroiliitis [M46.1] White matter abnormality on MRI of brain [R93.0]INVALID FOR* More... Acute gastritis without mention of hemorrhage [*INVALID FOR* Esophagitis, unspecified [K20.9] INVALID FOR* Sleep apnea [G47.30] INVALID FOR*12/30/2015 More... UTI (lower urinary tract infection) [N39.0] INVALID FOR* More... LPRD (laryngopharyngeal reflux disease) [K21.9] INVALID FOR* Obstructive sleep apnea [G47.33] Memory loss [R41.3] INVALID FOR* Facial pain [R51] INVALID FOR* Bilateral fibrocystic breast changes [N60.11, N*INVALID FOR* Dense breasts [R92.2] INVALID FOR* Personal history of breast cancer [Z85.3] INVALID FOR* Examination of participant in clinical trial [Z*INVALID FOR* Abnormality of right breast on screening mammog*INVALID FOR* More... 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 If 20 mg not enough, may increase up to 30 mg then then taper again every 3 to 5 days by 5 to 10mg increments. Prescriptions ordered this encounter Disp Refills Start End PREDNISONE 10 MG TABLET 30 t* 0 08/13/2017 08/25/2017 Sig: Take 4 tabs daily x 3 days, then 3 tabs x 3 days, 2 tabs x 3 days, then 1 tab x3 days with food. LEVOFLOXACIN 500 MG TABLET 10 t* 0 08/13/2017 08/23/2017 Class: Print RX Route: ORAL Sig: Take 1 tablet by mouth once daily for 10 days. Medications Discontinued During This Encounter levoFLOXacin (LEVAQUIN) 500 mg tablet 10 t* 0 08/01/2017 08/13/2017 Route: ORAL Sig: Take 1 tablet by mouth once daily for 10 days. Disc: Reason for discontinue is not on file. Encounter Status:Closed by NÉSTOR THOMPSON MD on 08/27/17 PROGRESS Observed: 08/11/2017 Status: COMPLETED Source: [place] 12:03 PM [facility] REPOSITORY HNO ID: [id number] Author: Tana Ragland Service: (none) Author Type: Physician Type: Progress Notes Filed: 08/12/2017 1:52 PM Note Text: Please let patient know ,that I reviewed her husbands note to Dr. Castanon I am sending a script [facility]erol [facility] [address]. Take it when ever she is wheezing and it will help. If she is having a bronchitis flare then she will have to Be on steroids to help with the cough and wheezing. PROGRESS Observed: 08/11/2017 Status: COMPLETED Source: [place] 11:48 AM [facility] REPOSITORY HNO ID: [id number] Author: Tana Ragland Service: (none) Author Type: Physician Type: Progress Notes Filed: 08/11/2017 12:02 PM Note Text: Please let patient know ,that I reviewed her husbands note to Dr. Castanon [facility] [address] Take it when ever she is wheezing and it will help. If she is having a bronchitis flare then she will have to Be on steroids to help with the cough and wheezing. HISTORY PHYSICAL Observed: 08/07/2017 Status: COMPLETED Source: [place] 1:55 PM [facility] REPOSITORY HNO ID: [id number] Author: Kayleigh Green (Pa) Service: (none) Author Type: Physician Acute Care Nurse Type: HANDP Filed: 08/07/2017 4:31 PM Note Text: HISTORY AND PHYSICAL EXAMINATION SERVICE DATE: 08/07/2017 SERVICE TIME: 1:55 PM PRIMARY CARE PHYSICIAN: Néstor Thompson MD REASON FOR VISIT: Richa Madden is a 67 year old female who is scheduled for right breast needle LOC biopsy at the request of Dr. Nicolasa Traore for consultation. My final recommendation will be communicated back to the requesting physician by way of shared medical record or letter. 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 Personal History of Malignant Neoplasm of Breast Hyperlipidemia OVERWEIGHT Vitamin D Deficiency Mastitis Gerd (Gastroesophageal Reflux Disease) Coccydynia Sacroiliitis (Hcc) White Matter Abnormality On Mri of Brain Acute Gastritis Without Mention of Hemorrhage Esophagitis, Unspecified Uti (Lower Urinary Tract Infection) Lprd (Laryngopharyngeal Reflux Disease) Obstructive Sleep Apnea Memory Loss Facial Pain Bilateral Fibrocystic Breast Changes Dense Breasts Personal History of Breast Cancer Examination of Participant in Clinical Trial Abnormality of Right Breast On Screening Mammogram SUBJECTIVE CHIEF COMPLAINT: right breast mass HPI: 67 yo female with h/o BL breast cancer in with chemo and radiation and recent abnl mammogram and biopsy done in 06/2017: Right breast, 10:00, 4 cm from nipple, ultrasound-guided core needle biopsy with ribbon clip placement - Breast tissue with stromal fibrosis, scar and scant epithelium (please see comment). She denies any breast pain or nipple DC. 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; would resolve with treatment - [facility] - Esophagitis, unspecified - Hair loss - History of Helicobacter pylori infection - Malignant neoplasm of breast (female), unspecified site Breast cancer - Malignant neoplasm of central portion of female breast (HCC) 06/2007 left lumpectomy with axillary dissection, right lumpectomy for DCIS - Memory loss 02/25/2016 - Mitral valve disorders(424.0) - Obstructive sleep apnea - Other specified disease of pancreas 06/23 anesthesia - Sacroiliitis (HCC) - Sinusitis - Viral meningitis - Viral meningitis PAST SURGICAL HISTORY Procedure Laterality Date - BREAST BIOPSY CORE 09/29/2012 right breast MRI guided - BRST BX STEREO LT VACCUUM ASSIST 04 Left - CERVIX UTERI CONIZA LP ELCTRO EXCI LEEP-Cervix - COLONOSCOP W/ OR W/O BRSH SPEC 2010 Colonoscopy - EGD W/O BRSH SPECIMEN W/BX 12/25/3759512 - EGD W/O OR W/BRUSH/WASH 01/06/13 EGD - EGD W/O OR W/BRUSH/WASH 05/01/2014 EGD - LAPAROSCOPIC CHOLEYCYSTECTOMY Cholecystectomy, lap - LEFT HEART CATH,PERCUTANEOUS Cardiac cath, L heart - MASTEC PARTIAL W AXILL NODE REMOV 06-25-07 Right NL PM/AXD - MASTECTOMY PARTIAL 11/10/07 Right Re-Ex PM - PAST SURGICAL HISTORY OF Surgery for endometriosis - PAST SURGICAL HISTORY OF Neuroma left foot - PAST SURGICAL HISTORY OF 2013 hysterectomy (Dr. Campbell) - STEREOTACTIC CORE BIOPSY 05/05/07 LEFT - BREAST NEEDLE CORE BIOPSY RT 03/31/2014 right breast - VACUUM ASSISTED BREAST BIOPSY 09/15/2012 MRI guided right breast FAMILY HISTORY Problem Relation Age of Onset - Cancer Father - Lung Cancer [OTHER] Father Spread to liver and possibly brain - Nasal polyps [OTHER] Father Seasonal allergies - COPD Mother - Stroke Mother - Nasal polyps [OTHER] Mother Seasonal allergies - Seizures Brother - Breast Cancer Other paternal great aunt - Nasal polyps [OTHER] Brother Seasonal allergies SOCIAL HISTORY: Social History Marital status: Spouse name: Years of education: Number of children: 1 Occupational History Occupation Employer Comment Retired [employer] Social History Main Topics Smoking status: Never Smoker Smokeless status: Never Used Alcohol use: No Prior to Admission medications as of 08/07/17 1345 Medication Sig Last Dose Taking levoFLOXacin (LEVAQUIN) 500 mg tablet Take 1 tablet by mouth once daily for 10 days. Yes HYDROcodone-acetaminophen (NORCO) 5-325 mg per tablet Take 1 tablet by mouth every 4 hours as needed for Pain for up to 7 days. For severe cough and acute pain Yes fluticasone (FLONASE) 50 mcg/actuation nasal spray Use 1-2 Sprays in each nostril once daily. Rinse mouth after use. Yes pantoprazole DR (PROTONIX) 40 mg tablet Take 1 tablet by mouth twice daily. Yes donepezil (ARICEPT) 10 mg tablet Take 1 tablet by mouth daily with breakfast. Yes Multivitamin capsule Take 1 capsule by mouth once daily. Yes pantoprazole DR (PROTONIX) 40 mg tablet Take 1 tablet by mouth twice daily. Yes folic acid 1 mg tablet 1 mg twice daily. Yes methotrexate 2.5 mg tablet Four tablet once per week Yes alendronate (FOSAMAX) 70 mg tablet once each week. Yes DULoxetine (CYMBALTA) 60 mg capsule Take 1 capsule by mouth once daily. Yes predniSONE (DELTASONE) 10 mg tablet Taking 20 mg pill once daily from discharge from [facility]; will see Dr. Shahid for follow up and decide about dose decrease after that Patient taking differently: 15 mg. Taking 20 mg pill once daily from discharge from [facility]; will see Dr. Shahid for follow up and decide about dose decrease after that Yes CPAP AutoPAP 5-15 cmH2O, suitable mask, humidity, filters. Lifetime supplies. Dx: G47.33 Yes ibuprofen (ADVIL) 200 mg tablet Take 3 tablets by mouth twice daily. Yes lidocaine viscous (LIDOCAINE VISCOUS) 2 % solution Take 5 mL by mouth as needed. May mix as directed to make BMX solution Yes COMPOUNDED PRESCRIPTION Overnight pulse ox 6-8 weeks after CPAP set up per sleep study recommendations Diagnoses: (G47.33, Z99.89) CRISTINA on CPAP; (G47.34) Nocturnal hypoxemia Yes lactobac cmb #[id number] (PROBIOTIC AND ACIDOPHILUS) 300-250 million cell-mg cap Take 1 capsule by mouth twice daily. Yes EPINEPHrine (EPIPEN) 0.3 mg/0.3 mL (1:1,000) auto-injector Inject 0.3 mg intramuscularly as needed. Yes No medication comments found. ALLERGIES Allergen Reactions - Tegretol [Carbamaze* Mental Status Change, GI Upset, Other: See Comments Decreased sodium, sore throat. (hyponatremia) - Bees Swelling - Codeine Intolerance Horrible side effects causing pancreatitis - Elavil [Amitriptyli* Swelling, Anaphylaxis - Prevacid [Lansopraz* GI Upset severe - Thiopental Sodium Vomiting - Sodium Pentathol [O* Vomiting - Adhesive Tape (Kim* Rash - Steristrips/Adhesiv* Rash REVIEW OF SYSTEMS: PAIN ASSESSMENT: General: No weight loss, malaise or fevers. Neuro: Postive for on Rx for memory , Negative for TIA's Headaches Seizures Stroke-residual deficit Respiratory: Positive for URI < 2 weeks, current Levoquin x 8 days , Negative for Asthma, COPD, Home O2, Tobacco Use + CRISTINA- on CPAP Cardiovascular: No history of HTN requiring medication, no history of angina, CHF, RI, cardiac surgery or stents. Denies rest pain, gangrene or revascularization/amputation for PVD. No history of cardiovascular symptoms or problems. 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 : N/A, No LMP recorded. Patient is postmenopausal. Endocrine: Steroids for chronic problem daily Pred for polyarthropathy. No DM or thyroid dx Hematology: No history of bleeding or clotting disorder. Pt is not taking anti-coagulation or platelet medications. No history of hematological symptoms or problems. Oncology: h/o breast cancer with chemo and radiation Psych: No history of psychiatric symptoms or problems. Musculoskeletal: Joint pain Skin: recent shingles right hip and upper leg region OBJECTIVE PHYSICAL EXAM: VITALS: BP 124/66 Pulse 80 Temp (Src) 97.4 (Temporal Artery) Ht 5' 4.5 (1.64m) Wt 181 lb (82.1kg) SpO2 95% BMI 30.60 kg/(m2). General: Alert and oriented, No acute distress, Healthy appearance Skin: Normal color, no rash, no lesions. HEENT: EOM, pupils equal, round and reactive. Cardiovascular: Normal S1 AND S2, no rubs, murmurs or gallops. No JVD. Pulse regular. Lungs: Wheezes, + expiratory wheezes Abdomen: Soft, non-tender, no rigidity., No masses or organomegaly. Extremities: No deformity, no edema or tenderness, no joint swelling or clubbing. Neurological: Normal cognition and motor skills. Gait normal. No weakness or sensory deficit. Pulses: Carotid and radial pulses normal +2. Diagnostic tests reviewed for today's visit: Lab Value Units Date High Low HB 14.0 g/dL 06/17/2017 15.5 11.5 HCT 44.1 % 06/17/2017 46.0 36.0 WBC 9.19 k/uL 06/17/2017 11.00 3.70 PLT 299 k/uL 06/17/2017 400 150 NA 140 mmol/L 06/17/2017 144 136 K 4.4 mmol/L 06/17/2017 5.1 3.7 GLUC 119 mg/dL 06/17/2017 99 74 BUN 15 mg/dL 06/17/2017 21 7 CREAT 0.76 mg/dL 06/17/2017 0.96 0.58 PTSEC No results within date range. INR No results within date range. APTT No results within date range. ALT 20 U/L 06/17/2017 38 7 AST 21 U/L 06/17/2017 35 13 TBILI 0.2 mg/dL 06/17/2017 1.3 0.2 TSH 1.090 uU/mL 07/28/2017 5.500 0.400 Lab Value Units Date High Low HCGQT No results within date range. UHCG No results within date range. HCG, BODY* No results within date range. Lab Value Units Date High Low ABORHD No results within date range. ABSCREEN No results within date range. Hemoglobin A1C (%) Date Value 04/25/2017 5.6 10/24/2015 5.6 Most recent labs Assessment ASSESSMENT Current URI- On Levoquin- improving but still wheezing today- pt told to FU with PCP and call to cancel surgery if not better by 08/14/17 CRISTINA- on CPAP and advised to bring CPAP GERD- on rx Daily Pred for polyarthropathy Memory loss H/o BL breast cancer PONV- remote METS: Climb a flight of stairs or walk up a hill (5.50 METs) ASA Class: 3 ANESTHESIA FINDINGS: Intubation History: No history of difficult intubation Significant Anesthesia Considerations: Postop nausea/vomiting yrs ago only Airway Exam: General: Normal appearance Mallampati Score is CLASS III ULBT: Class I - Lower incisors can bite the upper lip above the andrea line Neck: Normal appearance and function, Distance from hyoid to mentum during neck extension is at least 3 finger breaths Mouth: Normal tongue size Dentition: Intact Airway History: No abnormal airway history STOP BANG Score: CRISTINA uses CPAP/BiPAP PLAN This patient is optimally prepared for surgery pending resolution of URI- pt . CONSULTS: Patient does not require consults for optimization at this time. The Following Tests/Procedures Have Been Initiated: Labs not indicated per PACC protocol, EKG not indicated per [facility] protocol Planned Anesthetic: General Instructions Given to Patient: Patient given verbal and written preop instructions and voices comprehension and compliance. SIGNATURE: Kayleigh Green PA-C PATIENT NAME: Richa Madden DATE: August 07, 2017 TIME: 1:55 PM PAGER/CONTACT #: ALLERGIES ALLERGIES DATE TYPE / CODE NAME / CODE REACTION SEVERITY SOURCE Drug codeine/[id number] Other Unknown [place] 8 Allergy/194228907( 0(RXNORM) [facility] Drug carbamazepine/F00 Other Unknown [place] 8 Allergy/440866485( 3499803(RXNORM) [facility] Rep[facility] Drug adhesive/[id number] Rash Unknown [place] 8 Allergy/023183982( 45(RXNORM) [facility] Drug lansoprazole/F006 Diarrhea Unknown [place] 8 Allergy/956219666( 085649(RXNORM) [facility] Rep[facility] Drug topiramate/R92797 Other Unknown [place] 8 Allergy/084961645( 5453(RXNORM) [facility] Repository Miscellaneous SODIUM PENTATHOL Other Unknown [place] 8 Allergy/026298256( [facility] Repository Environ/777257454( BEES SWELLING [facility] [place] [address]) Clinic Main [place] Repository DRUG CARBAMAZEPINE Mental Chg High [place] 2 INGREDI/064256283( [facility] Main SNOMED CT) [place] Repository DRUG LANSOPRAZOLE GI UPSET [place] INGREDI/836196315( [facility] Main SNOMED CT) [place] Repository DRUG AMITRIPTYLINE SWELLING [place] INGREDI/394627419( [facility] Main SNOMED CT) [place] Repository DRUG CODEINE INTOLERANCE [place] INGREDI/640752509( [facility] Main SNOMED CT) [place] Repository DRUG THIOPENTAL SODIUM Vomiting [place] INGREDI/839820265( [facility] Main SNOMED CT) [place] Repository Chemical/199714638 ADHESIVE TAPE RASH Low [place] 7 (SNOMED CT) (ROSINS) Clinic Main [place] Repository Miscellaneous OTHER RASH Low [place] Allergy/217664024( [facility] Main SNOMED CT) [place] Repository Miscellaneous OTHER Vomiting [place] Allergy/999389315( [facility] Main SNOMED CT) [place] Repository ENCOUNTERS ENCOUNTERS ADMIT/DISCHARGE ACCOUNT ADMITTING ENCOUNTER LOCATION SOURCE NUMBER CLASS 08/03/2018/08/03/20 [id number] Ambulatory [address] Repository 07/26/2018/07/26/20 [id number] Ambulatory [address] Repository 07/19/2018 [id number] Ambulatory [facility] ing:MTLAB Repository 05/07/2018/05/25/20 [id number] Ambulatory [address] Repository 05/04/2018/05/04/20 [id number] Emergency [address] ing:ED Repository 04/20/2018 [id number] Ambulatory [facility] ing:MTLAB Repository 02/03/2018/02/16/20 [id number] Ambulatory [address] Repository 01/25/2018 [id number] Ambulatory [facility] ing:MTLAB Repository 01/12/2018 [id number] Ambulatory [facility] ing:LABSPEC Repository 12/16/2017/12/22/19 [id number] Ambulatory [address] Repository 12/16/2017 [id number] Ambulatory [facility] Repository 11/09/2017 [id number] Ambulatory [facility] ing:MTLAB Repository 09/07/2017/09/07/19 [id number] Ambulatory [address] Repository 08/25/2017/08/25/19 [id number] Ambulatory [address] Repository 08/25/2017/08/25/19 [id number] NICOLASA TRAORE Ambulatory [address] Repository 08/13/2017 [id number] Ambulatory [facility] Repository 08/07/2017/08/07/20 [id number] Ambulatory [address] Repository PAYERS PAYERS ENCOUNTER GUARANTOR PAYER SUBSCRIBER SOURCE 07/19/2018 PRASANNA [id number] Insurance:MEDICARE SHAYLA: [facility] PART A BPolicy Number: [id number] [id number] Repository [address]73[address]Grl: (330) Date:2018-07-19 [phone] () 07/19/2018 Secondary RICHA Yee Mel Insurance:HUMANA HOLMCHRISSYDOB: [facility] [id number] Hospital Number: Repository [id number] Date:6457-05-55QA [address] [address]JA: 07/19/2018 Tertiary NOT GIVENUNK [place] Insurance:SELF PAY [facility] Effective Repository Date:2018-07-19 05/04/2018 PRASANNA Saunders Primary RICHA Leal [id number] S Insurance:MEDICARE HOLMESDOB: [facility] [place] PART A BPolicy Number: [id number] [id number] Repository 18831Fqs: (846) Date:2018-05-04 [phone] () 05/04/2018 Secondary RICHA J Mel Insurance:HUMANA HOLMCHRISSYDOB: [facility] [id number] Hospital Number: Repository [id number] Date:[id number] [address] [address]VY: 05/04/2018 Tertiary NOT GIVENUNK [place] Insurance:SELF PAY [facility] Hospital Number: Effective Repository Date:2018-05-04 04/20/2018 PRASANNA Saunders Primary RICHA Leal [id number] S Insurance:MEDICARE HOLMESDOB: [facility] [place] PART A BPolicy Number: [id number], [place] [id number] Repository [address]Nuj: 330) Date:2018-04-20 [phone] () 04/20/2018 Secondary RICHA J Mel Insurance:HUMANA CHANODOB: [facility] [id number] Hospital Number: Repository [id number] Date:9189-11-65XC [address] [address]AX: 04/20/2018 Tertiary NOT GIVENUNK [place] Insurance:SELF PAY [facility] Hospital Number: Effective Repository Date:2018-04-20 01/25/2018 PRASANNA W Primary RICHA J Mel [id number] S Insurance:MEDICARE HOLMESDOB: [facility] [place] PART A BPolicy Number: [id number] [id number] Repository [address]Agr: 330) Date:2018-01-25 [phone] () 01/25/2018 Secondary RICHA J Mel Insurance:HUMANA HOLMESDOB: [facility] [id number] Hospital Number: Repository [id number] Date:0223-31-18UD [address] [place] [address]JR: 01/25/2018 Tertiary NOT GIVENUNK [place] Insurance:SELF PAY [facility] Hospital Number: Effective Repository Date:2018-01-25 01/12/2018 PRASANNA Suanders Primary RICHA J [place] [id number] S Insurance:MEDICARE HOLMESDOB: [facility] [place] PART A BPolicy Number: [id number], [place] [id number] Repository [address]Tci: 330) Date:2018-01-12 [phone] (HP) 01/12/2018 Secondary RICHA J Mel Insurance:HUMANA HOLMESDOB: [facility] [id number] Hospital Number: Repository [id number] Date:1967-59-35YR [address] [address]HM: 01/12/2018 Tertiary NOT GIVENUNK [place] Insurance:SELF PAY [facility] Hospital Number: Effective Repository Date:2018-01-12 11/09/2017 PRASANNA Saunders Primary RICHA J [place] [id number] S Insurance:MEDICARE HOLMESDOB: [facility] [place] PART A BPolicy Number: [id number], [place] [id number] Repository [address]Sig: (330) Date:2017-11-09 [phone] (HP) 11/09/2017 Secondary RICHA J Mel Insurance:HUMANA HOLMESDOB: [facility] [id number] Hospital Number: Repository [id number] Date:[id number] [address] [address]WT: 11/09/2017 Tertiary NOT GIVENUNK [place] Insurance:SELF PAY [facility] Number: Effective Repository Date:2017-11-09
== END 2018-07-19 11:00 | disposition home or self-care (01) ==
LOC: MTLAB 10:29
PROVIDERS: Family Provider Internal Medicine; PCP Internal Medicine; Referring Provider Internal Medicine Rheumatology; Visit Provider Internal Medicine Rheumatology
DX: M05.79 Rheumatoid arthritis with rheumatoid factor of multiple sites without organ or systems involvement (principal); K21.9 Gastro-esophageal reflux disease without esophagitis; G50.1 Atypical facial pain; G47.33 Obstructive sleep apnea (adult) (pediatric); Z85.3 Personal history of malignant neoplasm of breast; Z86.61 Personal history of infections of the central nervous system; Z79.899 Other long term (current) drug therapy
CPT/HCPCS: 36415; 80053; 85025

== ENCOUNTER → 2018-10-05 14:32 | Outpatient (CLI) | payer MEDICARE, OTHER, SELFPAY ==
[2018-10-05 17:32] LABS: Absolute Lymphocyte Count 1.45 X10^3/ul (0.83-4.51); Absolute Neutrophil Count 3.8 X10^3/uL (2.0-7.7); Basophil# 0.02 X10^3/uL; Basophil% 0.4 % (0-1); Eosinophil# 0.16 X10^3/uL; Eosinophils% 2.8 % (0-5); Hematocrit 37.7 % (37-47); Hemoglobin 12.4 g/dl (12.0-15.0); Lymphocyte # 1.45 X10^3/ul (4.0); Lymphocyte % 25.4 % (19-41); Mean Corp Hgb Conc 32.9 g/gl (32-36); Mean Corpuscular Volume 97.4 fL (81-99); Mean Platelet Vol. 9.3 fl (6.2-12.0); Monocyte# 0.33 X10^3/uL; Monocyte% 5.8 % (0-10); Neutrophil # 3.75 X10^3/uL (2.7-7.7); Neutrophil % 65.6 % (47-70); POSITIVE COUNT NO; POSITIVE DIFFERENTIAL NO; POSITIVE MORPHOLOGY NO; Platelet Count 232 K/mm3 (150-450); RBC Distribution Width CV 13.1 % (11.6-14.6); RBC Distribution Width SD 46.3 fl (35.1-43.9); Red Blood Count 3.87 M/mm3 (4.2-5.4); White Blood Count 5.7 K/mm3 (4.4-11.0)
[2018-10-05 17:47] LABS: ALB/GLOB Ratio 1.3 RATIO (0.9-2.4); AST(SGOT) 23 U/L (15-37); Alanine Aminotransfer ALT/SGPT 38 U/L (13-56); Albumin, Serum 3.9 g/dL (3.2-5.0); Alkaline Phosphatase 64 U/L (45-117); Anion Gap 7 (5-15); BUN 19 mg/dL (7-18); BUN/Creat Ratio 26.2 RATIO (10-20); Calcium,Total 8.8 mg/dL (8.5-10.1); Chloride 104 mmol/L (98-107); Creatinine, Serum 0.73 mg/dL (0.55-1.02); EST Glomerular Filtration Rate 84 mL/min (>60); Est Glom Filt Rate - Afr Amer 102 mL/min (>60); Globulin 3.1 g/dL (2.2-4.2); Glucose 105 mg/dL (74-106); Potassium 3.7 mmol/L (3.5-5.1); Sodium Level 138 mmol/L (136-145)
== END ==
PROVIDERS: Family Provider Internal Medicine; PCP Internal Medicine; Referring Provider Internal Medicine Rheumatology; Visit Provider Internal Medicine Rheumatology
DX: M06.9 Rheumatoid arthritis, unspecified (principal); M18.0 Bilateral primary osteoarthritis of first carpometacarpal joints; K21.9 Gastro-esophageal reflux disease without esophagitis; G50.1 Atypical facial pain; G47.33 Obstructive sleep apnea (adult) (pediatric); Z85.3 Personal history of malignant neoplasm of breast; Z86.61 Personal history of infections of the central nervous system
CPT/HCPCS: 36415; 80053; 85025

== ENCOUNTER → 2019-01-05 | Outpatient (CLI) | payer MEDICARE, OTHER, SELFPAY ==
[2019-01-05 15:51] LABS: Absolute Lymphocyte Count 1.49 X10^3/ul (0.83-4.51); Absolute Neutrophil Count 3.4 X10^3/uL (2.0-7.7); Basophil# 0.02 X10^3/uL; Basophil% 0.4 % (0-1); Eosinophil# 0.12 X10^3/uL; Eosinophils% 2.2 % (0-5); Hematocrit 37.5 % (37-47); Hemoglobin 12.6 g/dl (12.0-15.0); Lymphocyte # 1.49 X10^3/ul (4.0); Lymphocyte % 27.5 % (19-41); Mean Corp Hgb Conc 33.6 g/gl (32-36); Mean Corpuscular Hgb 31.9 pg (27.0-32.0); Mean Corpuscular Volume 94.9 fL (81-99); Mean Platelet Vol. 9.8 fl (6.2-12.0); Monocyte% 7.4 % (0-10); Neutrophil # 3.37 X10^3/uL (2.7-7.7); Neutrophil % 62.3 % (47-70); Platelet Count 246 K/mm3 (150-450); RBC Distribution Width CV 13.2 % (11.6-14.6); RBC Distribution Width SD 45.4 fl (35.1-43.9); Red Blood Count 3.95 M/mm3 (4.2-5.4); White Blood Count 5.4 K/mm3 (4.4-11.0)
[2019-01-05 15:58] LABS: ALB/GLOB Ratio 1.2 RATIO (0.9-2.4); AST(SGOT) 24 U/L (15-37); Alanine Aminotransfer ALT/SGPT 47 U/L (13-56); Albumin, Serum 3.8 g/dL (3.2-5.0); Alkaline Phosphatase 78 U/L (45-117); Anion Gap 6 (5-15); BUN 14 mg/dL (7-18); BUN/Creat Ratio 17.8 RATIO (10-20); Calcium,Total 9.1 mg/dL (8.5-10.1); Chloride 111 mmol/L (98-107); Creatinine, Serum 0.79 mg/dL (0.55-1.02); EST Glomerular Filtration Rate 77 mL/min (>60); Est Glom Filt Rate - Afr Amer 93 mL/min (>60); Globulin 3.3 g/dL (2.2-4.2); Glucose 96 mg/dL (74-106); Potassium 3.7 mmol/L (3.5-5.1); Protein, Total 7.1 g/dL (6.4-8.2); Sodium Level 142 mmol/L (136-145)
[2019-01-05 16:01] LABS: POSITIVE COUNT NO; POSITIVE DIFFERENTIAL NO; POSITIVE MORPHOLOGY NO
== END | disposition home or self-care (01) ==
LOC: MTLAB 14:14
PROVIDERS: Family Provider Internal Medicine; PCP Internal Medicine; Referring Provider Internal Medicine Rheumatology; Visit Provider Internal Medicine Rheumatology
DX: M05.79 Rheumatoid arthritis with rheumatoid factor of multiple sites without organ or systems involvement (principal); M18.0 Bilateral primary osteoarthritis of first carpometacarpal joints; K21.9 Gastro-esophageal reflux disease without esophagitis; G50.1 Atypical facial pain; G47.33 Obstructive sleep apnea (adult) (pediatric); Z85.3 Personal history of malignant neoplasm of breast; Z86.61 Personal history of infections of the central nervous system; Z79.899 Other long term (current) drug therapy
CPT/HCPCS: 36415; 80053; 85025

== ENCOUNTER → 2019-01-24 14:30 | Outpatient (CLI) | payer MEDICARE, OTHER, SELFPAY ==
[2019-01-28 11:50] LABS: HPV Reflexed? NOT INDICATED
== END ==
PROVIDERS: Family Provider Internal Medicine; PCP Internal Medicine; Visit Provider Obstetrics & Gynecology
DX: Z12.4 Encounter for screening for malignant neoplasm of cervix (principal)
CPT/HCPCS: 88175; G0145

== ENCOUNTER → 2019-04-05 | Outpatient (CLI) | payer MEDICARE, OTHER, SELFPAY ==
[2019-04-05 12:10] LABS: Absolute Lymphocyte Count 1.35 X10^3/uL (0.83-4.51); Absolute Neutrophil Count 3.2 X10^3/uL (2.0-7.7); Basophil# 0.03 X10^3/uL; Basophil% 0.6 % (0-1); Eosinophil# 0.23 X10^3/uL; Eosinophils% 4.4 % (0-5); Hematocrit 38.9 % (37-47); Hemoglobin 12.8 g/dL (12.0-15.0); Lymphocyte # 1.35 X10^3/ul (4.0); Lymphocyte % 25.6 % (19-41); Mean Corp Hgb Conc 32.9 g/dL (32-36); Mean Corpuscular Hgb 32.4 pg (27.0-32.0); Mean Corpuscular Volume 98.5 fL (81-99); Mean Platelet Vol. 9.4 fl (6.2-12.0); Monocyte# 0.46 X10^3/uL; Monocyte% 8.7 % (0-10); NRBC Flagged by Analyzer 0 % (0-5); Neutrophil # 3.18 X10^3/uL (2.7-7.7); Neutrophil % 60.3 % (47-70); Platelet Count 265 K/mm3 (150-450); RBC Distribution Width CV 12.7 % (11.6-14.6); RBC Distribution Width SD 45.5 fl (35.1-43.9); Red Blood Count 3.95 M/mm3 (4.2-5.4); White Blood Count 5.3 K/mm3 (4.4-11.0)
[2019-04-05 12:35] LABS: ALB/GLOB Ratio 0.9 RATIO (0.9-2.4); AST(SGOT) 19 U/L (15-37); Alanine Aminotransfer ALT/SGPT 36 U/L (13-56); Albumin, Serum 3.4 g/dL (3.2-5.0); Alkaline Phosphatase 83 U/L (45-117); Anion Gap 3 (5-15); BUN 16 mg/dL (7-18); Chloride 108 mmol/L (98-107); Creatinine, Serum 0.84 mg/dL (0.55-1.02); EST Glomerular Filtration Rate 71 mL/min (>60); Est Glom Filt Rate - Afr Amer 86 mL/min (>60); Globulin 3.8 g/dL (2.2-4.2); Glucose 92 mg/dL (74-106); Potassium 4.1 mmol/L (3.5-5.1); Protein, Total 7.2 g/dL (6.4-8.2); Sodium Level 141 mmol/L (136-145)
== END | disposition home or self-care (01) ==
LOC: MTLAB 10:55
PROVIDERS: Family Provider Internal Medicine; PCP Internal Medicine; Referring Provider Internal Medicine Rheumatology; Visit Provider Internal Medicine Rheumatology
DX: M18.0 Bilateral primary osteoarthritis of first carpometacarpal joints (principal); K21.9 Gastro-esophageal reflux disease without esophagitis; G50.1 Atypical facial pain; G47.33 Obstructive sleep apnea (adult) (pediatric); M05.79 Rheumatoid arthritis with rheumatoid factor of multiple sites without organ or systems involvement; Z85.3 Personal history of malignant neoplasm of breast; Z79.899 Other long term (current) drug therapy; Z86.61 Personal history of infections of the central nervous system
CPT/HCPCS: 36415; 80053; 85025

== ENCOUNTER → 2019-06-28 | Outpatient (CLI) | payer MEDICARE, OTHER, SELFPAY ==
[2019-06-28 14:25] LABS: Absolute Lymphocyte Count 1.68 X10^3/uL (0.83-4.51); Absolute Neutrophil Count 6.8 X10^3/uL (2.0-7.7); Basophil# 0.05 X10^3/uL; Basophil% 0.5 % (0-1); Eosinophils% 2.1 % (0-5); Hematocrit 38.4 % (37-47); Hemoglobin 12.6 g/dL (12.0-15.0); Lymphocyte # 1.68 X10^3/ul (4.0); Lymphocyte % 17.9 % (19-41); Mean Corp Hgb Conc 32.8 g/dL (32-36); Mean Corpuscular Hgb 32.1 pg (27.0-32.0); Mean Platelet Vol. 9.7 fl (6.2-12.0); Monocyte# 0.62 X10^3/uL; Monocyte% 6.6 % (0-10); NRBC Flagged by Analyzer 0 % (0-5); Neutrophil # 6.78 X10^3/uL (2.7-7.7); Neutrophil % 72.6 % (47-70); Platelet Count 231 K/mm3 (150-450); RBC Distribution Width SD 46.4 fl (35.1-43.9); Red Blood Count 3.92 M/mm3 (4.2-5.4); White Blood Count 9.4 K/mm3 (4.4-11.0)
[2019-06-28 14:55] LABS: AST(SGOT) 23 U/L (15-37); Alanine Aminotransfer ALT/SGPT 35 U/L (13-56); Albumin, Serum 3.5 g/dL (3.2-5.0); Alkaline Phosphatase 92 U/L (45-117); Anion Gap 6 (5-15); BUN 11 mg/dL (7-18); Calcium,Total 8.9 mg/dL (8.5-10.1); Chloride 110 mmol/L (98-107); Creatinine, Serum 0.85 mg/dL (0.55-1.02); EST Glomerular Filtration Rate 70 mL/min (>60); Est Glom Filt Rate - Afr Amer 85 mL/min (>60); Globulin 3.5 g/dL (2.2-4.2); Glucose 91 mg/dL (74-106); Potassium 3.9 mmol/L (3.5-5.1); Sodium Level 144 mmol/L (136-145)
== END | disposition home or self-care (01) ==
LOC: MTLAB 13:19
PROVIDERS: Family Provider Internal Medicine; PCP Internal Medicine; Referring Provider Internal Medicine Rheumatology; Visit Provider Internal Medicine Rheumatology
DX: M05.79 Rheumatoid arthritis with rheumatoid factor of multiple sites without organ or systems involvement (principal); M18.0 Bilateral primary osteoarthritis of first carpometacarpal joints; K21.9 Gastro-esophageal reflux disease without esophagitis; Z79.899 Other long term (current) drug therapy
CPT/HCPCS: 36415; 80053; 85025

== ENCOUNTER → 2019-10-05 16:43 | Outpatient (CLI) | payer MEDICARE, OTHER, SELFPAY ==
[2019-10-05 18:04] LABS: Absolute Lymphocyte Count 1.82 X10^3/uL (0.83-4.51); Absolute Neutrophil Count 4.1 X10^3/uL (2.0-7.7); Basophil# 0.04 X10^3/uL; Basophil% 0.6 % (0-1); Eosinophil# 0.15 X10^3/uL; Eosinophils% 2.2 % (0-5); Hematocrit 39.9 % (37-47); Hemoglobin 13.1 g/dL (12.0-15.0); Lymphocyte # 1.82 X10^3/ul (4.0); Lymphocyte % 27.2 % (19-41); Mean Corp Hgb Conc 32.8 g/dL (32-36); Mean Corpuscular Volume 97.3 fL (81-99); Mean Platelet Vol. 9.8 fl (6.2-12.0); Monocyte# 0.58 X10^3/uL; Monocyte% 8.7 % (0-10); NRBC Flagged by Analyzer 0 % (0-5); Neutrophil # 4.07 X10^3/uL (2.7-7.7); Platelet Count 255 K/mm3 (150-450); RBC Distribution Width CV 12.9 % (11.6-14.6); RBC Distribution Width SD 45.6 fl (35.1-43.9); White Blood Count 6.7 K/mm3 (4.4-11.0)
[2019-10-05 18:25] LABS: ALB/GLOB Ratio 1.1 RATIO (0.9-2.4); AST(SGOT) 22 U/L (15-37); Alanine Aminotransfer ALT/SGPT 44 U/L (13-56); Albumin, Serum 3.7 g/dL (3.2-5.0); Alkaline Phosphatase 85 U/L (45-117); Anion Gap 4 (5-15); BUN 18 mg/dL (7-18); BUN/Creat Ratio 21.4 RATIO (10-20); Calcium,Total 9.4 mg/dL (8.5-10.1); Chloride 108 mmol/L (98-107); Creatinine, Serum 0.84 mg/dL (0.55-1.02); EST Glomerular Filtration Rate 71 mL/min (>60); Est Glom Filt Rate - Afr Amer 86 mL/min (>60); Globulin 3.5 g/dL (2.2-4.2); Glucose 88 mg/dL (74-106); Potassium 3.6 mmol/L (3.5-5.1); Protein, Total 7.2 g/dL (6.4-8.2); Sodium Level 142 mmol/L (136-145)
== END ==
PROVIDERS: PCP Internal Medicine; Referring Provider Internal Medicine Rheumatology; Visit Provider Internal Medicine Rheumatology
DX: M05.79 Rheumatoid arthritis with rheumatoid factor of multiple sites without organ or systems involvement (principal); Z79.899 Other long term (current) drug therapy; M18.0 Bilateral primary osteoarthritis of first carpometacarpal joints; K21.9 Gastro-esophageal reflux disease without esophagitis; G50.1 Atypical facial pain; G47.33 Obstructive sleep apnea (adult) (pediatric); Z85.3 Personal history of malignant neoplasm of breast
CPT/HCPCS: 36415; 80053; 85025

== ENCOUNTER → 2020-01-13 09:25 | Outpatient (CLI) | payer MEDICARE, OTHER, SELFPAY ==
--- NOTE | 2020-01-13 09:37 | US_ITS ---
STUDY: ABDOMINAL ULTRASOUND - RIGHT UPPER QUADRANT REASON FOR VISIT: Female, 69 years old ELEVATED LFTS TECHNIQUE: Ultrasound evaluation of the right upper quadrant was performed with real-time and static garibay-scale imaging. TECHNICAL QUALITY: Adequate. COMPARISON: None. FINDINGS: Liver: The liver measures 13.8 cm. There is increased echogenicity consistent with fatty infiltration. The bile ducts are within normal limits. There is hepatic color flow. The direction of portal flow is hepatopetal. Multiple cysts are seen in the right and left lobes of the liver. The largest cyst in the left lobe measures 2.6 cm x 2.8 cm. The largest cyst in the right lobe of the liver measures 1.9 cm x 2.8 cm x 2.3 cm. Gallbladder: The patient is status post cholecystectomy. Common Bile Duct (C.B.D.): The common bile duct measures 6.2 mm. Pancreas: Normal size of the head, body and tail of the pancreas. There is normal echogenicity of the pancreas. There is no demonstrated pancreatic mass or cyst. Right Kidney: Normal size of the right kidney. The right kidney measures 10.7 cm x 5.3 cm x 4.5 cm. Normal renal cortex. The right cortex measures 1.3 cm. There is no demonstrated renal mass or cyst. There is no right hydronephrosis. US/Liver IMPRESSION: Fatty infiltration of the liver. Hepatic cysts. Status post cholecystectomy. Electronically Signed: Ariel Bazan, at 13:32 EDT , Service support ,
== END ==
PROVIDERS: PCP Internal Medicine; Referring Provider Internal Medicine Rheumatology; Visit Provider Internal Medicine Rheumatology
DX: M05.79 Rheumatoid arthritis with rheumatoid factor of multiple sites without organ or systems involvement (principal); M18.0 Bilateral primary osteoarthritis of first carpometacarpal joints; K21.9 Gastro-esophageal reflux disease without esophagitis; G50.1 Atypical facial pain; G47.33 Obstructive sleep apnea (adult) (pediatric); Z79.899 Other long term (current) drug therapy; Z85.3 Personal history of malignant neoplasm of breast; Z86.61 Personal history of infections of the central nervous system
CPT/HCPCS: 76705

== ENCOUNTER → 2020-02-01 16:18 | Outpatient (CLI) | payer MEDICARE, OTHER, SELFPAY ==
[2020-02-01 18:45] LABS: AST(SGOT) 27 U/L (15-37); Alanine Aminotransfer ALT/SGPT 46 U/L (13-56); Albumin, Serum 3.8 g/dL (3.2-5.0); Alkaline Phosphatase 94 U/L (45-117); Anion Gap 6 (5-15); BUN 17 mg/dL (7-18); BUN/Creat Ratio 21.2 RATIO (10-20); Calcium,Total 9.6 mg/dL (8.5-10.1); Chloride 105 mmol/L (98-107); EST Glomerular Filtration Rate 75 mL/min (>60); Est Glom Filt Rate - Afr Amer 91 mL/min (>60); Globulin 3.7 g/dL (2.2-4.2); Glucose 91 mg/dL (74-106); Potassium 3.8 mmol/L (3.5-5.1); Protein, Total 7.5 g/dL (6.4-8.2); Sodium Level 140 mmol/L (136-145)
== END ==
PROVIDERS: PCP Internal Medicine; Referring Provider Internal Medicine Rheumatology; Visit Provider Internal Medicine Rheumatology
DX: M05.79 Rheumatoid arthritis with rheumatoid factor of multiple sites without organ or systems involvement (principal); Z79.899 Other long term (current) drug therapy; M18.0 Bilateral primary osteoarthritis of first carpometacarpal joints; K21.9 Gastro-esophageal reflux disease without esophagitis; G50.1 Atypical facial pain; G47.33 Obstructive sleep apnea (adult) (pediatric); Z85.3 Personal history of malignant neoplasm of breast; Z86.61 Personal history of infections of the central nervous system
CPT/HCPCS: 36415; 80053

== ENCOUNTER → 2020-03-01 11:57 | Outpatient (CLI) | payer MEDICARE, OTHER, SELFPAY ==
--- NOTE | 2020-03-01 12:01 | BI_ITS ---
MAMMOGRAPHY - BILATERAL SCREENING REASON FOR EXAM: Female, 69 years old. Routine annual screening examination. PERTINENT HISTORY: Personal history of breast cancer. Prior left lumpectomy with chemotherapy and radiation therapy. Prior right lumpectomy. TECHNIQUE: Digital bilateral breast scott (3D mammographic acquisition) in the CC and MLO projections. 2-D mediolateral oblique (MLO) and craniocaudad (CC) views of both breasts were obtained. CAD: Full Field Digital Mammography with Computer Added Detection was performed. COMPARISON: Comparison is made with prior outside examination dated December 22, 2018. FINDINGS: Breast Composition: The breasts are heterogeneously dense, which may obscure small masses. There are no dominant masses or suspicious calcifications. There is a stable 2.1 cm x 1.8 cm densely calcified nodule in the deep upper lateral portion of the left breast. A surgical clip is seen adjacent to this. Stable architectural distortion is seen in the retroareolar region of the left breast with skin thickening. There is also evidence of architectural distortion and deformity of the right breast due to prior lumpectomy in the central deep aspect of the breast. There has been essentially no change. No other significant abnormalities are identified. There has been no significant change since the prior study. BI/SCREEN MAMM (CAD) W/SCOTT BILAT IMPRESSION: Stable bilateral screening mammogram. Yearly follow-up mammogram recommended. (A) ASSESSMENT CATEGORY: BIRADS Category 2: Benign. A letter regarding these results will be sent to the patient by the facility within 30 days. Approximately 10% of breast cancers are not detected by mammography. A normal mammogram should not delay biopsy of a clinically suspicious abnormality. [id number] Electronically Signed: Ariel Bazan, at 13:14 EDT , Service support ,
== END ==
PROVIDERS: PCP Internal Medicine; Referring Provider Obstetrics & Gynecology; Visit Provider Obstetrics & Gynecology
DX: Z12.31 Encounter for screening mammogram for malignant neoplasm of breast (principal)
CPT/HCPCS: 77063; 77067

== ENCOUNTER → 2020-03-27 16:36 | Outpatient (CLI) | payer MEDICARE, OTHER, SELFPAY ==
[2020-03-27 18:20] LABS: ALB/GLOB Ratio 0.7 RATIO (0.9-2.4); AST(SGOT) 24 U/L (15-37); Alanine Aminotransfer ALT/SGPT 87 U/L (13-56); Albumin, Serum 3.4 g/dL (3.2-5.0); Alkaline Phosphatase 109 U/L (45-117); Anion Gap 6 (5-15); BUN 21 mg/dL (7-18); BUN/Creat Ratio 20.6 RATIO (10-20); Calcium,Total 9.7 mg/dL (8.5-10.1); Chloride 107 mmol/L (98-107); Creatinine, Serum 1.02 mg/dL (0.55-1.02); EST Glomerular Filtration Rate 57 mL/min (>60); Est Glom Filt Rate - Afr Amer 69 mL/min (>60); Globulin 4.6 g/dL (2.2-4.2); Glucose 149 mg/dL (74-106); Potassium 4.2 mmol/L (3.5-5.1); Sodium Level 139 mmol/L (136-145)
[2020-03-27 18:40] LABS: Absolute Lymphocyte Count 1.14 X10^3/uL (0.83-4.51); Absolute Neutrophil Count 9.2 X10^3/uL (2.0-7.7); Basophil# 0.04 X10^3/uL; Basophil% 0.4 % (0-1); Eosinophil# 0.11 X10^3/uL; Hematocrit 39.2 % (37-47); Hemoglobin 12.5 g/dL (12.0-15.0); Lymphocyte # 1.14 X10^3/ul (4.0); Lymphocyte % 10.1 % (19-41); Mean Corp Hgb Conc 31.9 g/dL (32-36); Mean Corpuscular Hgb 30.3 pg (27.0-32.0); Mean Corpuscular Volume 95.1 fL (81-99); Mean Platelet Vol. 9.4 fl (6.2-12.0); Monocyte# 0.76 X10^3/uL; Monocyte% 6.7 % (0-10); NRBC Flagged by Analyzer 0 % (0-5); Neutrophil # 9.23 X10^3/uL (2.7-7.7); Neutrophil % 81.4 % (47-70); Platelet Count 364 K/mm3 (150-450); RBC Distribution Width CV 12.5 % (11.6-14.6); RBC Distribution Width SD 43.6 fl (35.1-43.9); Red Blood Count 4.12 M/mm3 (4.2-5.4); White Blood Count 11.3 K/mm3 (4.4-11.0)
== END ==
PROVIDERS: PCP Internal Medicine; Referring Provider Internal Medicine Rheumatology; Visit Provider Internal Medicine Rheumatology
DX: M05.79 Rheumatoid arthritis with rheumatoid factor of multiple sites without organ or systems involvement (principal); M18.0 Bilateral primary osteoarthritis of first carpometacarpal joints; K76.0 Fatty (change of) liver, not elsewhere classified; K21.9 Gastro-esophageal reflux disease without esophagitis; G50.1 Atypical facial pain; G47.33 Obstructive sleep apnea (adult) (pediatric); Z79.899 Other long term (current) drug therapy; Z85.3 Personal history of malignant neoplasm of breast; Z86.61 Personal history of infections of the central nervous system
CPT/HCPCS: 36415; 80053; 85025

== ENCOUNTER → 2020-04-03 15:02 | Outpatient (CLI) | payer MEDICARE, OTHER, SELFPAY ==
[2020-04-06 16:30] LABS: HPV APTIMA, High Risk Negative (Negative)
[2020-04-06 16:31] LABS: HPV Reflexed? YES, CHARGE PATIENT
== END ==
PROVIDERS: PCP Internal Medicine; Visit Provider Student in an Organized Health Care Education/Training Program
DX: Z12.4 Encounter for screening for malignant neoplasm of cervix (principal)
CPT/HCPCS: 87624; 88175; G0145

== ENCOUNTER → 2020-06-12 14:15 | Outpatient (CLI) | payer MEDICARE, OTHER, SELFPAY ==
[2020-06-12 17:53] LABS: Absolute Lymphocyte Count 1.11 X10^3/uL (0.83-4.51); Basophil# 0.05 X10^3/uL; Basophil% 0.4 % (0-1); Eosinophil# 0.07 X10^3/uL; Eosinophils% 0.6 % (0-5); Hematocrit 37.1 % (37-47); Hemoglobin 11.3 g/dL (12.0-15.0); Lymphocyte # 1.11 X10^3/ul (4.0); Lymphocyte % 9.2 % (19-41); Mean Corp Hgb Conc 30.5 g/dL (32-36); Mean Corpuscular Hgb 28.5 pg (27.0-32.0); Mean Corpuscular Volume 93.7 fL (81-99); Mean Platelet Vol. 9.8 fl (6.2-12.0); Monocyte# 0.78 X10^3/uL; Monocyte% 6.5 % (0-10); NRBC Flagged by Analyzer 0 % (0-5); Neutrophil # 10.01 X10^3/uL (2.7-7.7); Neutrophil % 82.9 % (47-70); Platelet Count 353 K/mm3 (150-450); RBC Distribution Width CV 14.3 % (11.6-14.6); Red Blood Count 3.96 M/mm3 (4.2-5.4); White Blood Count 12.1 K/mm3 (4.4-11.0)
[2020-06-12 18:16] LABS: ALB/GLOB Ratio 0.7 RATIO (0.9-2.4); AST(SGOT) 17 U/L (15-37); Alanine Aminotransfer ALT/SGPT 33 U/L (13-56); Alkaline Phosphatase 53 U/L (45-117); Anion Gap 8 (5-15); BUN 19 mg/dL (7-18); Chloride 107 mmol/L (98-107); Creatinine, Serum 0.76 mg/dL (0.55-1.02); EST Glomerular Filtration Rate 80 mL/min (>60); Est Glom Filt Rate - Afr Amer 96 mL/min (>60); Globulin 4.4 g/dL (2.2-4.2); Glucose 99 mg/dL (74-106); Potassium 3.7 mmol/L (3.5-5.1); Protein, Total 7.4 g/dL (6.4-8.2); Sodium Level 141 mmol/L (136-145)
== END ==
PROVIDERS: PCP Internal Medicine; Referring Provider Internal Medicine Rheumatology; Visit Provider Internal Medicine Rheumatology
DX: M05.79 Rheumatoid arthritis with rheumatoid factor of multiple sites without organ or systems involvement (principal); M18.0 Bilateral primary osteoarthritis of first carpometacarpal joints; K76.0 Fatty (change of) liver, not elsewhere classified; K21.9 Gastro-esophageal reflux disease without esophagitis; G50.1 Atypical facial pain; G47.33 Obstructive sleep apnea (adult) (pediatric); Z85.3 Personal history of malignant neoplasm of breast; Z86.61 Personal history of infections of the central nervous system; Z79.899 Other long term (current) drug therapy
CPT/HCPCS: 36415; 80053; 85025

== ENCOUNTER → 2020-08-08 14:43 | Outpatient (CLI) | payer MEDICARE, OTHER, SELFPAY ==
[2020-08-08 17:47] LABS: Absolute Lymphocyte Count 1.13 X10^3/uL (0.83-4.51); Absolute Neutrophil Count 7.7 X10^3/uL (2.0-7.7); Basophil# 0.04 X10^3/uL; Basophil% 0.4 % (0-1); Eosinophil# 0.16 X10^3/uL; Eosinophils% 1.6 % (0-5); Hematocrit 38.1 % (37-47); Hemoglobin 11.5 g/dL (12.0-15.0); Lymphocyte # 1.13 X10^3/ul (4.0); Lymphocyte % 11.6 % (19-41); Mean Corp Hgb Conc 30.2 g/dL (32-36); Mean Corpuscular Hgb 27.7 pg (27.0-32.0); Mean Corpuscular Volume 91.8 fL (81-99); Mean Platelet Vol. 9.6 fl (6.2-12.0); Monocyte# 0.65 X10^3/uL; Monocyte% 6.7 % (0-10); NRBC Flagged by Analyzer 0 % (0-5); Neutrophil # 7.71 X10^3/uL (2.7-7.7); Neutrophil % 79.4 % (47-70); Platelet Count 335 K/mm3 (150-450); RBC Distribution Width CV 13.8 % (11.6-14.6); RBC Distribution Width SD 46.7 fl (35.1-43.9); Red Blood Count 4.15 M/mm3 (4.2-5.4); White Blood Count 9.7 K/mm3 (4.4-11.0)
[2020-08-08 18:09] LABS: ALB/GLOB Ratio 0.7 RATIO (0.9-2.4); AST(SGOT) 15 U/L (15-37); Alanine Aminotransfer ALT/SGPT 30 U/L (13-56); Albumin, Serum 3.2 g/dL (3.2-5.0); Alkaline Phosphatase 65 U/L (45-117); Anion Gap 4 (5-15); BUN 15 mg/dL (7-18); BUN/Creat Ratio 19.8 RATIO (10-20); Calcium,Total 9.1 mg/dL (8.5-10.1); Chloride 109 mmol/L (98-107); Creatinine, Serum 0.76 mg/dL (0.55-1.02); EST Glomerular Filtration Rate 80 mL/min (>60); Est Glom Filt Rate - Afr Amer 96 mL/min (>60); Globulin 4.4 g/dL (2.2-4.2); Glucose 110 mg/dL (74-106); Potassium 3.9 mmol/L (3.5-5.1); Protein, Total 7.6 g/dL (6.4-8.2); Sodium Level 143 mmol/L (136-145)
== END ==
PROVIDERS: PCP Internal Medicine; Referring Provider Internal Medicine Rheumatology; Visit Provider Internal Medicine Rheumatology
DX: M05.79 Rheumatoid arthritis with rheumatoid factor of multiple sites without organ or systems involvement (principal); M18.0 Bilateral primary osteoarthritis of first carpometacarpal joints; K76.0 Fatty (change of) liver, not elsewhere classified; K21.9 Gastro-esophageal reflux disease without esophagitis; G50.1 Atypical facial pain; G47.33 Obstructive sleep apnea (adult) (pediatric); Z79.899 Other long term (current) drug therapy; Z85.3 Personal history of malignant neoplasm of breast; Z86.61 Personal history of infections of the central nervous system
CPT/HCPCS: 36415; 80053; 85025

== ENCOUNTER → 2020-10-31 15:18 | Outpatient (CLI) | payer MEDICARE, OTHER, SELFPAY ==
[2020-10-31 17:53] LABS: Absolute Lymphocyte Count 0.95 X10^3/uL (0.83-4.51); Absolute Neutrophil Count 6.6 X10^3/uL (2.0-7.7); Basophil# 0.05 X10^3/uL; Basophil% 0.6 % (0-1); Eosinophil# 0.11 X10^3/uL; Eosinophils% 1.3 % (0-5); Hematocrit 38.4 % (37-47); Lymphocyte # 0.95 X10^3/ul (4.0); Lymphocyte % 11.5 % (19-41); Mean Corp Hgb Conc 31.3 g/dL (32-36); Mean Corpuscular Hgb 29.3 pg (27.0-32.0); Mean Corpuscular Volume 93.9 fL (81-99); Mean Platelet Vol. 9.8 fl (6.2-12.0); Monocyte# 0.46 X10^3/uL; Monocyte% 5.6 % (0-10); NRBC Flagged by Analyzer 0 % (0-5); Neutrophil # 6.62 X10^3/uL (2.7-7.7); Neutrophil % 80.4 % (47-70); Platelet Count 278 K/mm3 (150-450); RBC Distribution Width CV 14.4 % (11.6-14.6); RBC Distribution Width SD 50.2 fl (35.1-43.9); Red Blood Count 4.09 M/mm3 (4.2-5.4); White Blood Count 8.2 K/mm3 (4.4-11.0)
[2020-10-31 18:27] LABS: ALB/GLOB Ratio 0.9 RATIO (0.9-2.4); AST(SGOT) 25 U/L (15-37); Alanine Aminotransfer ALT/SGPT 37 U/L (13-56); Albumin, Serum 3.6 g/dL (3.2-5.0); Alkaline Phosphatase 69 U/L (45-117); Anion Gap 4 (5-15); BUN 22 mg/dL (7-18); BUN/Creat Ratio 25.4 RATIO (10-20); Calcium,Total 9.4 mg/dL (8.5-10.1); Chloride 106 mmol/L (98-107); Cholesterol 233 mg/dL (200); Creatinine, Serum 0.86 mg/dL (0.55-1.02); EST Glomerular Filtration Rate 68 mL/min (>60); Est Glom Filt Rate - Afr Amer 83 mL/min (>60); Globulin 4.1 g/dL (2.2-4.2); Glucose 110 mg/dL (74-106); High Density Lipoprotein 69 mg/dL; Potassium 4.2 mmol/L (3.5-5.1); Protein, Total 7.7 g/dL (6.4-8.2); Sodium Level 139 mmol/L (136-145); Triglycerides 120 mg/dL; Very Low Density Lipoprotein 24 mg/dL (5-40)
== END ==
PROVIDERS: PCP Internal Medicine; Referring Provider Internal Medicine Rheumatology; Visit Provider Internal Medicine Rheumatology
DX: M05.79 Rheumatoid arthritis with rheumatoid factor of multiple sites without organ or systems involvement (principal); M18.0 Bilateral primary osteoarthritis of first carpometacarpal joints; K76.0 Fatty (change of) liver, not elsewhere classified; K21.9 Gastro-esophageal reflux disease without esophagitis; G50.1 Atypical facial pain; G47.33 Obstructive sleep apnea (adult) (pediatric); E55.9 Vitamin D deficiency, unspecified; E78.00 Pure hypercholesterolemia, unspecified; Z79.899 Other long term (current) drug therapy; Z85.3 Personal history of malignant neoplasm of breast; Z86.61 Personal history of infections of the central nervous system
CPT/HCPCS: 36415; 80053; 80061; 82306; 83735; 85025

== ENCOUNTER → 2020-12-03 14:50 | Outpatient (CLI) | payer MEDICARE, OTHER, SELFPAY | PROVIDERS: PCP Internal Medicine; Visit Provider Student in an Organized Health Care Education/Training Program | DX: R30.0 Dysuria (principal) | CPT/HCPCS: 87086; 87088; 87186 ==

== ENCOUNTER → 2020-12-21 15:55 | Outpatient (CLI) | payer MEDICARE, OTHER, SELFPAY | PROVIDERS: PCP Internal Medicine; Visit Provider Student in an Organized Health Care Education/Training Program | DX: N76.0 Acute vaginitis (principal); N77.1 Vaginitis, vulvitis and vulvovaginitis in diseases classified elsewhere | CPT/HCPCS: 87086; 87088 ==

== ENCOUNTER 2021-08-06 17:22 | Outpatient (REF) | payer MEDICARE, OTHER, SELFPAY | END 2021-08-06 23:59 | disposition home or self-care (01) | LOC: OLS.BROOKB 17:22 | PROVIDERS: PCP Internal Medicine; Visit Provider Internal Medicine | DX: R11.2 Nausea with vomiting, unspecified (principal) | CPT/HCPCS: 87804 ==

== ENCOUNTER → 2021-08-15 04:02 | Outpatient (REF) | payer MEDICARE, OTHER, SELFPAY ==
[2021-08-15 08:42] LABS: Hemoglobin 13.4 g/dL (12.0-15.0); Mean Corp Hgb Conc 34.4 g/dL (32-36); Mean Corpuscular Hgb 31.6 pg (27.0-32.0); Mean Platelet Vol. 9.8 fl (6.2-12.0); Platelet Count 284 K/mm3 (150-450); RBC Distribution Width CV 13.1 % (11.6-14.6); Red Blood Count 4.24 M/mm3 (4.2-5.4); White Blood Count 6.5 K/mm3 (4.4-11.0)
[2021-08-15 09:11] LABS: ALB/GLOB Ratio 0.8 RATIO (0.9-2.4); AST(SGOT) 31 U/L (15-37); Alanine Aminotransfer ALT/SGPT 51 U/L (13-56); Albumin, Serum 3.1 g/dL (3.2-5.0); Alkaline Phosphatase 60 U/L (45-117); Anion Gap 8 (5-15); BUN 11 mg/dL (7-18); BUN/Creat Ratio 14.3 RATIO (10-20); Calcium,Total 8.7 mg/dL (8.5-10.1); Chloride 108 mmol/L (98-107); Creatinine, Serum 0.77 mg/dL (0.55-1.02); EST Glomerular Filtration Rate 78 mL/min (>60); Est Glom Filt Rate - Afr Amer 94 mL/min (>60); Globulin 3.7 g/dL (2.2-4.2); Glucose 102 mg/dL (74-106); Potassium 3.2 mmol/L (3.5-5.1); Protein, Total 6.8 g/dL (6.4-8.2); Sodium Level 144 mmol/L (136-145); Thyroid Stim Hormone (TSH) 1.36 uIU/mL (0.358-3.74)
[2021-08-15 09:13] LABS: Vitamin B12 1023 pg/mL (211-911); Vitamin D,25 Hydroxy 47.8 ng/mL
[2021-08-21 16:22] LABS: Vitamin B1, Thiamine 125.2 nmol/L (66.5-200.0)
== END ==
LOC: OLS.BROOKB 04:02
PROVIDERS: PCP Internal Medicine
DX: R41.0 Disorientation, unspecified (principal); E55.9 Vitamin D deficiency, unspecified
CPT/HCPCS: 36415; 80053; 82306; 82607; 82746; 84425; 84443; 85027

== ENCOUNTER → 2021-11-04 | Outpatient (REF) | payer MEDICARE, OTHER, SELFPAY ==
[2021-11-04 09:02] LABS: Hematocrit 35.9 % (37-47); Hemoglobin 12.1 g/dL (12.0-15.0); Mean Corp Hgb Conc 33.7 g/dL (32-36); Mean Corpuscular Hgb 31.9 pg (27.0-32.0); Mean Corpuscular Volume 94.7 fL (81-99); Mean Platelet Vol. 10.1 fl (6.2-12.0); Platelet Count 207 K/mm3 (150-450); RBC Distribution Width SD 45.1 fl (35.1-43.9); Red Blood Count 3.79 M/mm3 (4.2-5.4); White Blood Count 5.1 K/mm3 (4.4-11.0)
[2021-11-04 09:25] LABS: Vitamin B12 1030 pg/mL (211-911); Vitamin D,25 Hydroxy 55.1 ng/mL
[2021-11-04 09:33] LABS: Hemoglobin A1c 5.4 % (3.8-5.6)
[2021-11-04 09:34] LABS: AST(SGOT) 18 U/L (15-37); Alanine Aminotransfer ALT/SGPT 22 U/L (13-56); Albumin, Serum 3.1 g/dL (3.2-5.0); Alkaline Phosphatase 61 U/L (45-117); Anion Gap 2 (5-15); BUN 10 mg/dL (7-18); BUN/Creat Ratio 14.4 RATIO (10-20); Calcium,Total 8.7 mg/dL (8.5-10.1); Chloride 107 mmol/L (98-107); EST Glomerular Filtration Rate 88 mL/min (>60); Est Glom Filt Rate - Afr Amer 106 mL/min (>60); Ferritin 66 ng/mL (8-252); Free T3 2.2 pg/mL (2.18-3.98); Globulin 3.1 g/dL (2.2-4.2); Glucose 88 mg/dL (74-106); Iron 51 ug/dL (50-170); Iron Binding Capacity,Total 280 ug/dL (250-450); Magnesium 2.2 mg/dL (1.6-2.6); Potassium 3.7 mmol/L (3.5-5.1); Protein, Total 6.2 g/dL (6.4-8.2); Sodium Level 142 mmol/L (136-145); T4 Free Direct 1.09 ng/dL (0.76-1.46); Thyroid Stim Hormone (TSH) 1.91 uIU/mL (0.358-3.74)
[2021-11-04 11:30] LABS: Bacteria 0 SEEN /hpf (None Seen); Mucous, Urine 0 SEEN /hpf (<or=2+); Red Blood Cells-Urine 0 SEEN /hpf (0-5); Squamous Epithelial Cells - UA 0 SEEN /hpf (5-10)
[2021-11-04 11:41] LABS: Color, Urine Yellow (Yellow); Glucose, Dipstick Normal (Normal); Ketone-Dipstick Negative (Negative); Leukocyte Esterase-Dipstick 25 /ul (Negative); Nitrite-Dipstick Negative (Negative); Occult Blood-Urine Negative /ul (Negative); Protein-Dipstick Negative (Negative); Urine Bilirubin Dipstick Negative (Negative); Urine Clarity Sl. Cloudy (Clear); Urine Urobilinogen Normal (Normal); Urine pH 6.5 (5.0 - 8.0)
[2021-11-04 11:47] LABS: White Blood Cells 0-5 SEEN /hpf (0-5)
== END | disposition home or self-care (01) ==
LOC: OLS.BROOKB 05:00
PROVIDERS: PCP Internal Medicine; Visit Provider Internal Medicine
DX: G30.9 Alzheimer's disease, unspecified (principal); F02.81 Dementia in other diseases classified elsewhere, unspecified severity, with behavioral disturbance; R32 Unspecified urinary incontinence; R41.0 Disorientation, unspecified; D64.9 Anemia, unspecified; Z79.899 Other long term (current) drug therapy
CPT/HCPCS: 36415; 80053; 81001; 82306; 82607; 82728; 82746; 83036; 83540; 83550; 83735; 84439; 84443; 84481; 85027

== ENCOUNTER → 2022-01-23 | Outpatient (REF) | payer MEDICARE, OTHER, SELFPAY ==
[2022-01-23 08:27] LABS: Hematocrit 39.1 % (37-47); Hemoglobin 12.5 g/dL (12.0-15.0); Mean Corpuscular Hgb 30.4 pg (27.0-32.0); Mean Corpuscular Volume 95.1 fL (81-99); Mean Platelet Vol. 10.3 fl (6.2-12.0); Platelet Count 197 K/mm3 (150-450); RBC Distribution Width CV 12.5 % (11.6-14.6); RBC Distribution Width SD 43.7 fl (35.1-43.9); Red Blood Count 4.11 M/mm3 (4.2-5.4); White Blood Count 4.2 K/mm3 (4.4-11.0)
[2022-01-23 08:51] LABS: ALB/GLOB Ratio 1.2 RATIO (0.9-2.4); AST(SGOT) 24 U/L (15-37); Alanine Aminotransfer ALT/SGPT 25 U/L (13-56); Albumin, Serum 3.6 g/dL (3.2-5.0); Alkaline Phosphatase 58 U/L (45-117); Anion Gap 6 (5-15); BUN 16 mg/dL (7-18); BUN/Creat Ratio 20.6 RATIO (10-20); Calcium,Total 9.2 mg/dL (8.5-10.1); Chloride 108 mmol/L (98-107); Creatinine, Serum 0.78 mg/dL (0.55-1.02); EST Glomerular Filtration Rate 77 mL/min (>60); Est Glom Filt Rate - Afr Amer 94 mL/min (>60); Free T3 2.2 pg/mL (2.18-3.98); Glucose 88 mg/dL (74-106); Potassium 3.7 mmol/L (3.5-5.1); Protein, Total 6.6 g/dL (6.4-8.2); Sodium Level 142 mmol/L (136-145); T4 Free Direct 0.92 ng/dL (0.76-1.46); Thyroid Stim Hormone (TSH) 1.14 uIU/mL (0.358-3.74)
== END | disposition home or self-care (01) ==
LOC: OLS.BROOKB 05:00
PROVIDERS: PCP Internal Medicine; Visit Provider Internal Medicine
DX: I10 Essential (primary) hypertension (principal); E78.5 Hyperlipidemia, unspecified; E55.9 Vitamin D deficiency, unspecified; F06.31 Mood disorder due to known physiological condition with depressive features; R63.4 Abnormal weight loss; R41.82 Altered mental status, unspecified
CPT/HCPCS: 36415; 80053; 84439; 84443; 84481; 85027

== ENCOUNTER 2022-05-28 11:53 | Emergency (ER) | payer MEDICARE, OTHER, SELFPAY ==
[2022-05-28 11:54] VITALS: BP 94/55; PULSE 89; RESP 14; TEMP 36.8; O2SAT 92; BMI 25.7
--- NOTE | 2022-05-28 12:45 | RAD_ITS ---
HISTORY: FALL. TECHNIQUE: XR Hip Unilateral with Pelvis when performed; 2-3 Views. COMPARISON: Pelvis 05/01/2017. FINDINGS: OSSEOUS STRUCTURES: No acute displaced fracture identified. Note that overlapping bowel shadows may obscure osseous detail. Mineralization unremarkable. JOINT SPACES: No dislocation. Joint spaces maintained. RAD/HIP, UNI W/ Pelvis 2-3 Views IMPRESSION: No acute displaced fracture or dislocation identified in the right hip. Electronically Signed: Lucy López MD at 13:04 EDT ,
--- NOTE | 2022-05-28 12:45 | RAD_ITS ---
HISTORY: FALL. TECHNIQUE: XR Spine Lumbar 2 or 3 Views. COMPARISON: CT 05/23/2017. FINDINGS: VERTEBRAE: Vertebral body heights preserved. Degenerative changes of the posterior elements. ALIGNMENT: Chronic mild anterolisthesis of L4-5. Levocurvature of the lumbar spine. INTERVERTEBRAL DISCS: Degenerative endplate changes at multiple levels with intervertebral disc space narrowing. SOFT TISSUES: Right upper quadrant surgical clips. RAD/Lumbar Spine 2 or 3 Views IMPRESSION: No acute fracture or dislocation identified in the lumbar spine. Multilevel degenerative change. Electronically Signed: Lucy López MD at 13:04 EDT ,
[2022-05-28 12:59] VITALS: BP 95/38; PULSE 71
--- NOTE | 2022-05-28 13:33 | ED.VIS.FALL ---
HPI HPI - Fall History of Present Illness Chief Complaint: Fall Informant: SNF Limited: dementia Occured/Mechanism Occurred: Today Pain/Injury Location: Back and right hip Pain Location: back and lower extremity Associated Symptoms Associated Symptoms: Positive for Loss of consciousness (Unknown) Length of loss of consciousness: Unknown Narrative Narrative: Patient presents after a fall today. Patient was found laying on the floor. Patient is in the memory care unit due to dementia. Patient is a poor informant. Patient is on hospice. Staff does not know how long the patient was laying on the floor but states she was at breakfast this morning. Staff does not think she was down very long. Patient was complaining of pain in her back and hips. Staff denies any fevers or chills. Staff denies any other abnormal behavior. PFSH [facility] Medical History Dementia Gastro-esophageal reflux disease with esophagitis Hypertension Inflammatory polyarthropathy Malignant neoplasm of breast Mood disorder Vitamin B12 deficiency anemia Medical History unable to obtain Home Medications Lactobacil.acidophilus-Bifido.animalis 5 billion cell sprinkle capsule (Probiotic) 1 ea PO BID 01/24/14 [History Last Taken 05/04/17] Pyridoxine Hcl [Vitamin B-6] 100 mg PO DAILY 01/24/14 [History Last Taken 05/04/17] calcium citrate 315 mg calcium-vitamin D3 6.25 mcg (250 unit) tablet 1 ea PO DAILY 01/24/14 [History Last Taken 05/04/17] cholecalciferol (vitamin D3) 50 mcg (2,000 unit) tablet 2,000 unit PO DAILY 01/24/14 [History Last Taken 05/04/17] cyanocobalamin (vitamin B-12) 1,000 mcg sublingual tablet 1,000 mcg PO DAILY 01/24/14 [History Last Taken 05/04/17] multivitamin with folic acid 400 mcg tablet (Thera) 1 tab PO DAILY 01/24/14 [History Last Taken 05/04/17] omega-3 fatty acids-fish oil 300 mg-1,000 mg capsule 1 ea PO BID 01/24/14 [History Last Taken 05/04/17] donepezil 5 mg tablet (Aricept) 5 mg PO DAILY 04/06/17 [History Last Taken 05/04/17] pantoprazole 40 mg tablet,delayed release 40 mg PO BID 04/06/17 [History Last Taken 05/04/17] vitamin B complex 1 ea PO DAILY 05/03/17 [History Last Taken 05/04/17] epinephrine 0.3 mg/0.3 mL injection, auto-injector 0.3 mg IM PRN PRN Allergies 05/05/17 [History Last Taken Unknown] fluticasone furoate 27.5 mcg/actuation nasal spray,suspension (Flonase Sensimist) 50 mcg NS PRN PRN Allergies 05/05/17 [History Last Taken 05/04/17] ibuprofen 200 mg tablet 200 mg PO PRN PRN Pain 05/05/17 [History Last Taken 05/04/17] hydrocodone 10 mg-acetaminophen 325 mg tablet ([place]) 1 ea PO Q6H PRN PRN Severe Pain (6-1010) ##15 05/11/17 [Rx Last Taken Unknown] prednisone 20 mg tablet (Deltasone) 20 mg PO DAILY ##30 05/11/17 [Rx Last Taken Unknown] ascorbic acid (vitamin C) 1,000 mg tablet (Vitamin C) 1,000 mg PO DAILY 05/23/17 [History Last Taken Unknown] Allergy/AdvReac Type Severity Reaction Status Date / Time adhesive Allergy Rash Verified 05/04/18 18:56 topiramate [From Topamax] Allergy Other Verified 05/04/18 18:56 carbamazepine AdvReac Other Verified 05/04/18 18:56 codeine AdvReac Other Verified 05/04/18 18:56 lansoprazole [From Prevacid] AdvReac Diarrhea Verified 05/04/18 18:56 SODIUM [place] Allergy Other Uncoded 05/04/18 18:56 Surgical History unable to obtain Social History Smoking Status: Never smoker ROS ROS ED Review of Systems ROS Unobtainable: due to mental condition and due to mental status EXAM Physical Exam Const Vital Signs: 05/28/22 11:54 05/28/22 12:57 05/28/22 12:59 Temperature 98.2 F Temperature Source Temporal Pulse Rate 89 71 Respiratory Rate 14 Respiratory Effort Normal Respiratory Depth Normal Respiratory Pattern Normal Blood Pressure 94/55 L 95/38 L Blood Pressure Mean 68 57 Pulse Ox 92 Oxygen Delivery Method Room Air Positive well nourished and well developed General Appearance ED: well developed and NAD HEENT Reports normocephalic atraumatic Neck full ROM and supple Resp normal respiratory effort and clear to auscultation bilaterally Cardio regular rate and regular rhythm GI non-tender and non-distended Palpation: soft Back/Spine Back/Spine Narrative: There is some mild tenderness over the lumbar spine. There is no bony crepitance or step-off. There is adequate range of motion. Straight leg raises were negative. Neuro CN's II-XII intact bilaterally, moves all extremities, no focal motor deficits and no sensory deficits noted Sensorium / Orientation: alert Psych mental status grossly normal MDM MDM MDM Narrative Medical decision making narrative: X-rays of the lumbar spine were obtained. There are 3 views. On my interpretation, there is no acute fracture or dislocation. There are some degenerative changes noted. Radiologist also interpreted the x-rays and agrees. X-rays of the right hip and pelvis were obtained. There are 3 views. On my interpretation, there is no acute fracture or dislocation. Radiologist also interpreted the x-rays and agrees. It does not appear the patient was on the ground for very long and rhabdomyolysis is unlikely. Patient will be discharged back to the extended care facility to the memory care unit. Radiography Diagnostic Testing: Clinical Impression(s) from Imaging Studies Hip/Pelvis X-Ray 05/28/22 12:45 IMPRESSION: No acute displaced fracture or dislocation identified in the right hip. Electronically Signed: Lucy López MD at 13:04 EDT , Lumbar Spine X-Ray 05/28/22 12:45 IMPRESSION: No acute fracture or dislocation identified in the lumbar spine. Multilevel degenerative change. Electronically Signed: Lucy López MD at 13:04 EDT , Discharge Plan Triage Chief Complaint: Fall ED Provider: NOT,DEFINED Dx/Rx/DC Orders Clinical Impression: Fall, Low back pain, Contusion of right hip, initial encounter Instructions: ED Contusion, Lower Extremity, ED Back and Neck Pain, General Prescriptions: No Action cyanocobalamin (vitamin B-12) 1,000 MCG Tab.Subl 1,000 mcg PO DAILY Label Comments: supplement omega-3 fatty acids-fish oil 1 EACH capsule 1 ea PO BID Label Comments: supplement cholecalciferol (vitamin D3) 2,000 UNIT tablet 2,000 unit PO DAILY Label Comments: supplement calcium citrate-vitamin D3 1 EACH tablet 1 ea PO DAILY Label Comments: supplement multivitamin with folic acid [Thera] 1 TABLET tablet 1 tab PO DAILY Label Comments: vitamin L. acidophilus/Bifid. animalis [Probiotic] 1 EACH Cap.Sprink 1 ea PO BID Label Comments: probiotic Pyridoxine Hcl [Vitamin B-6] 100 MG tablet 100 mg PO DAILY Label Comments: supplement pantoprazole 40 MG tablet 40 mg PO BID donepezil [Aricept] 5 MG tablet 5 mg PO DAILY vitamin B complex 1 EACH capsule 1 ea PO DAILY ibuprofen 200 MG tablet 200 mg PO PRN PRN (Reason: Pain) fluticasone furoate [Flonase Sensimist] 9.9 ML G[place]ydan.Susp 50 mcg NS PRN PRN (Reason: Allergies) Label Comments: 1-2 SPRAYS epinephrine 0.3 MG syringe 0.3 mg IM PRN PRN (Reason: Allergies) Label Comments: bee stings hydrocodone-acetaminophen [[place]] 1 EACH tablet 1 ea PO Q6H PRN PRN (Reason: Severe Pain (6-10/10)) Qty: 15 0RF prednisone [Deltasone] 20 MG tablet 20 mg PO DAILY Qty: 30 0RF Rx Instructions: With food ascorbic acid (vitamin C) [Vitamin C] 1,000 MG tablet 1,000 mg PO DAILY Primary Care Provider: Mitzi Thompson Referrals: Mitzi Thompson MD [Primary Care Provider] - 5-7 Days Disposition Disposition: Senior Care Facility Discharge Location: [facility]
== END 2022-05-28 15:14 | disposition skilled nursing facility (03) ==
PROVIDERS: Emergency Provider Emergency Medicine; PCP Internal Medicine; Visit Provider Emergency Medicine
DX: S70.01XA Contusion of right hip, initial encounter (principal); M54.50 Low back pain, unspecified; W19.XXXA Unspecified fall, initial encounter
CPT/HCPCS: 72100; 73502; 99284

== ENCOUNTER → 2022-08-03 | Outpatient (REF) | payer MEDICARE, OTHER, SELFPAY ==
[2022-08-04 10:01] LABS: Glucose, Dipstick Normal (Normal); Ketone-Dipstick 5 mg/dl (Negative); Leukocyte Esterase-Dipstick 500 /ul (Negative); Nitrite-Dipstick Positive (Negative); Occult Blood-Urine 10 /ul (Negative); Protein-Dipstick 30 mg/dl (Negative); Urine Bilirubin Dipstick Negative (Negative); Urine Urobilinogen 1 mg/dl (Normal)
[2022-08-04 10:03] LABS: Color, Urine Yellow (Yellow); Urine Clarity Turbid (Clear)
== END ==
LOC: OLS.BROOKB 10:25
PROVIDERS: PCP Internal Medicine; Visit Provider Nurse Practitioner Acute Care
DX: R41.0 Disorientation, unspecified (principal)
CPT/HCPCS: 81002; 87086; 87088; 87186